=== PATIENT | male | born 1945 | race Caucasian/White ===

== ENCOUNTER 2017-05-05 07:23 | Outpatient (RCR) | payer MEDICARE, OTHER, SELFPAY ==
[2017-05-05 09:46] LABS: AST(SGOT) 26 U/L (15-37); Alanine Aminotransfer ALT/SGPT 35 U/L (16-61); Albumin, Serum 3.7 g/dL (3.2-5.0); Alkaline Phosphatase 78 U/L (45-117); Bilirubin, Direct 0.26 mg/dL (0.00-0.30); Cholesterol 125 mg/dL (200); High Density Lipoprotein 56 mg/dL; Protein, Total 6.7 g/dL (6.4-8.2); Triglycerides 49 mg/dL; Very Low Density Lipoprotein 10 mg/dL (5-40)
== END 2017-05-05 08:00 | disposition home or self-care (01) ==
LOC: LAB 07:23
PROVIDERS: Family Provider Internal Medicine; PCP Internal Medicine; Visit Provider Internal Medicine Cardiovascular Disease
DX: E78.5 Hyperlipidemia, unspecified (principal); Z79.899 Other long term (current) drug therapy
CPT/HCPCS: 36415; 80061; 80076

== ENCOUNTER → 2018-05-08 09:18 | Outpatient (CLI) | payer MEDICARE, OTHER, SELFPAY ==
[2017-05-06 10:02] VITALS: BMI 25.2
[2018-05-08 10:47] LABS: AST(SGOT) 18 U/L (15-37); Alanine Aminotransfer ALT/SGPT 29 U/L (16-61); Alkaline Phosphatase 67 U/L (45-117); Bilirubin, Direct 0.28 mg/dL (0.00-0.30); Cholesterol 137 mg/dL (200); Globulin 2.6 g/dL (2.2-4.2); High Density Lipoprotein 58 mg/dL; Protein, Total 6.6 g/dL (6.4-8.2); Triglycerides 80 mg/dL; Very Low Density Lipoprotein 16 mg/dL (5-40)
== END ==
PROVIDERS: Physician Assistant Medical; Family Provider Internal Medicine; PCP Internal Medicine; Referring Provider Internal Medicine Cardiovascular Disease; Visit Provider Internal Medicine Cardiovascular Disease
DX: E78.5 Hyperlipidemia, unspecified (principal)
CPT/HCPCS: 36415; 80061; 80076

== ENCOUNTER → 2019-07-29 08:48 | Outpatient (CLI) | payer MEDICARE, OTHER, SELFPAY ==
[2018-05-12 08:59] VITALS: BMI 26.2
[2019-07-29 09:31] LABS: AST(SGOT) 16 U/L (15-37); Alanine Aminotransfer ALT/SGPT 24 U/L (16-61); Alkaline Phosphatase 70 U/L (45-117); Bilirubin, Direct 0.34 mg/dL (0.00-0.30); Cholesterol 133 mg/dL (200); High Density Lipoprotein 54 mg/dL; Triglycerides 72 mg/dL; Very Low Density Lipoprotein 14 mg/dL (5-40)
== END ==
PROVIDERS: Physician Assistant Medical; PCP Internal Medicine; Referring Provider Internal Medicine Cardiovascular Disease; Visit Provider Internal Medicine Cardiovascular Disease
DX: E78.5 Hyperlipidemia, unspecified (principal)
CPT/HCPCS: 36415; 80061; 80076

== ENCOUNTER → 2019-10-14 10:10 | Outpatient (CLI) | payer MEDICARE, OTHER, SELFPAY ==
[2019-07-30 09:22] VITALS: BMI 24.1
--- NOTE | 2019-10-14 10:20 | RAD_ITS ---
STUDY: X-RAY - RIGHT KNEE REASON FOR EXAM: Male, 74 years old. PAIN MEDIALLY WHILE WALKING X3 WEEKS, NKI TECHNIQUE: 4 view(s) of the knee. COMPARISON: None. FINDINGS: Normal visualized distal femur. Normal visualized proximal tibia and fibula. Normal proximal tibiofibular articulation. Normal medial femorotibial compartment. Normal lateral femorotibial compartment. Normal patellofemoral articulation. The soft tissue structures are unremarkable. RAD/Knee 4 or More Views IMPRESSION: Normal x-ray examination of the knee. Electronically Signed: Sandor Parada MD at 22:46 EDT , Service support ,
== END ==
PROVIDERS: PCP Family Medicine; Referring Provider Family Medicine; Visit Provider Family Medicine
DX: M25.561 Pain in right knee (principal)
CPT/HCPCS: 73564

== ENCOUNTER → 2020-01-18 09:14 | Outpatient (CLI) | payer MEDICARE, OTHER, SELFPAY ==
[2019-07-30 09:22] VITALS: BMI 24.1
[2020-01-18 12:33] LABS: Absolute Lymphocyte Count 1.66 X10^3/uL (0.83-4.51); Absolute Neutrophil Count 2.9 X10^3/uL (2.0-7.7); Basophil# 0.02 X10^3/uL; Basophil% 0.4 % (0-1); Eosinophil# 0.16 X10^3/uL; Hematocrit 45.5 % (40-54); Hemoglobin 14.6 g/dL (13.0-16.5); Lymphocyte # 1.66 X10^3/ul (4.0); Lymphocyte % 31.1 % (19-41); Mean Corp Hgb Conc 32.1 g/dL (32-36); Mean Corpuscular Hgb 32.5 pg (27.0-32.0); Mean Corpuscular Volume 101.3 fL (80-94); Mean Platelet Vol. 9.5 fl (6.2-12.0); Monocyte% 11.2 % (0-10); NRBC Flagged by Analyzer 0 % (0-5); Neutrophil # 2.86 X10^3/uL (2.7-7.7); Neutrophil % 53.6 % (47-70); Platelet Count 176 K/mm3 (150-450); RBC Distribution Width CV 12.1 % (11.6-14.6); RBC Distribution Width SD 45.2 fl (35.1-43.9); Red Blood Count 4.49 M/mm3 (4.6-6.2); White Blood Count 5.3 K/mm3 (4.4-11.0)
[2020-01-18 12:47] LABS: AST(SGOT) 14 U/L (15-37); Alanine Aminotransfer ALT/SGPT 23 U/L (16-61); Albumin, Serum 3.9 g/dL (3.2-5.0); Alkaline Phosphatase 75 U/L (45-117); Bilirubin, Direct 0.25 mg/dL (0.00-0.30); Cholesterol 136 mg/dL (200); High Density Lipoprotein 57 mg/dL; Protein, Total 6.9 g/dL (6.4-8.2); Triglycerides 66 mg/dL; Very Low Density Lipoprotein 13 mg/dL (5-40)
== END ==
PROVIDERS: PCP Family Medicine; Referring Provider Dermatology; Visit Provider Dermatology
DX: E78.5 Hyperlipidemia, unspecified (principal); I25.10 Atherosclerotic heart disease of native coronary artery without angina pectoris; Z79.899 Other long term (current) drug therapy
CPT/HCPCS: 36415; 80061; 80076; 85025

== ENCOUNTER 2020-04-24 11:53 | Emergency (ER) | payer MEDICARE, OTHER, SELFPAY ==
[2019-07-30 09:22] VITALS: BMI 24.1
[2020-04-24 11:54] VITALS: BP 122/68; PULSE 65; RESP 16; TEMP 36.8; O2SAT 98; BMI 25.1
--- NOTE | 2020-04-24 12:03 | CT_ITS ---
STUDY: CT ABDOMEN AND PELVIS WITHOUT CONTRAST REASON FOR EXAM: Male, 74 years old. Kidney Stone RADIATION DOSAGE (If Supplied By Facility): CTDIvol = ( 9.06 ) mGy, DLP = ( 509.47 ) mGycm TECHNIQUE: Transaxial images were obtained from the dome of the diaphragm to the symphysis pubis without oral contrast, and without intravenous contrast. Sagittal and coronal images were reconstructed. Individualized dose optimization techniques were used for this CT. COMPARISON: None. FINDINGS: The visualized lung bases are unremarkable. The visualized portions of the heart are within normal limits. Normal liver. Normal gallbladder and extrahepatic biliary system. Normal spleen. Normal pancreas. Normal bilateral adrenal glands. Multiple bilateral kidney stones the largest measures 5 mm. There is moderate left hydronephrosis and hydroureter due to 5 mm stone in the distal left ureter at the UVJ. Multiple moderately enlarged retroperitoneal and mesenteric lymph nodes nodes are noted. The largest lymph node measures approximately 1.7 cm in diameter is in the left upper quadrant may represent a neoplastic process such as lymphoma. Normal visualized stomach. Normal small intestine. There are multiple colonic diverticula consistent with diverticulosis. There are surgical clips in the region of the appendix consistent with a prior appendectomy. There is diffuse atherosclerotic calcification of the abdominal aorta, without a demonstrated aneurysm. Normal inferior vena cava. Normal urinary bladder. There is a right-sided inguinal hernia containing adipose tissue. Normal osseous structures. CT/Abdomen/Pelvis without Cont IMPRESSION: Multiple bilateral kidney stones the largest measures 5 mm. There is moderate left hydronephrosis and hydroureter due to 5 mm stone in the distal left ureter at the UVJ. Multiple moderately enlarged retroperitoneal and mesenteric lymph nodes nodes are noted. The largest lymph node measures approximately 1.7 cm in diameter is in the left upper quadrant may represent a neoplastic process such as lymphoma. Electronically Signed: Eusebia Carvajal MD at 12:53 EST Tel , Service support ,
--- NOTE | 2020-04-24 12:04 | ED.DCSUM_ITS ---
History of Present Illness Chief Complaint: Flank Pain Informant: Patient Onset: Today Context: Sudden Onset Timing: Intermittent Current Severity: Mild Maximum Severity: Moderate Narrative: The patient is a 74-year-old male with medical history significant for kidney stone who presents to the emergency department for left-sided flank pain. The patient states he was in his normal state of health. He states he was up this morning. He states he suddenly had pain in his left flank down into his left lower quadrant. He was very nauseated. He states he took 2 Tylenol. The pain then went away after 30 minutes. It has not returned. He denies any fevers or chills. He does have history of prior CABG and is on aspirin, but no other anticoagulants. He denies hematuria or dysuria. He is never required lithotripsy or stenting. Prior similar symptoms: Yes Recent Illness/Hospitalization: No Past Medical History - Allergies and Home Meds Allergies/Adverse Reactions: Allergies No Known Allergies Allergy (Verified 04/24/20 11:53) Primary Care Physician: Gina Smith MD [Primary Care Provider] - Prior records reviewed: Yes Past Medical History: - - Hypertension Surgical History: coronary bypass surgery Smoking Status: Never smoker Review of Systems General: Denies: Chills, Fever, Sweats Eyes: Denies: Visual changes - bilaterally, Diplopia ENT: Denies: Rhinorrhea, Sore throat Cardiovascular: Denies: Chest pain, Palpitations Respiratory: Denies: Dyspnea, Cough, Dyspnea on exertion Gastrointestinal: Denies: Abdominal pain, Nausea, Vomiting, Diarrhea, Melena, Hematochezia Genitourinary: Denies: Dysuria, Hematuria, Frequency Musculoskeletal: Reports: Back pain. Denies: Extremity Pain Skin: Denies: Rash, Wounds Neurological: Denies: Headache, Weakness, Numbness Physical Exam Vital Signs/Narrative: Vital Signs Temp Pulse Resp BP Pulse Ox 04/24/20 11:54 98.2 F 65 16 122/68 H 98 Inital Vital Signs reviewed: Yes General: Well nourished, Well developed, No Acute Distress Head: Normocephalic, Atraumatic Eyes: Perrl, EOMI ENT: Moist mucous membranes, No rhinorrhea Neck: Supple, Nontender Cardiovascular: Regular rate, Regular rhythm, No murmurs Respiratory: No distress, CTA bilaterally, Chest nontender Abdomen: Soft, Nontender, Nondistended, Normal bowel sounds Back: Nontender, Normal Inspection Extremities: Nontender, No edema Skin: Normal color, No rash Neurological: Alert, Oriented x3, Cranial nerves II-XII grossly intact, Normal S trength, Normal Sensation Psychological: Normal affect, Normal Mood Diagnostic/Tx/Re-eval Clinical Impression(s) from Imaging Studies Abdomen/Pelvis CT 04/24/20 12:03 IMPRESSION: Multiple bilateral kidney stones the largest measures 5 mm. There is moderate left hydronephrosis and hydroureter due to 5 mm stone in the distal left ureter at the UVJ. Multiple moderately enlarged retroperitoneal and mesenteric lymph nodes nodes are noted. The largest lymph node measures approximately 1.7 cm in diameter is in the left upper quadrant may represent a neoplastic process such as lymphoma. Electronically Signed: Eusebia Carvajal MD at 12:53 EST Tel , Service support , Abnormal Lab Results 04/24/20 04/24/20 12:10 12:10 WBC 11.4 H RBC 4.59 L Hgb 14.8 Hct 45.2 MCV 98.5 H MCH 32.2 H MCHC 32.7 RDW Std Deviation 43.1 RDW Coeff of Jorge L 11.9 Plt Count 177 MPV 8.9 Immature Gran % (Auto) 0.600 Neut % (Auto) 84.5 H Lymph % (Auto) 7.5 L Crook % (Auto) 6.0 Eos % (Auto) 1.0 Baso % (Auto) 0.4 Absolute Neuts (auto) 9.6 H Absolute Lymphs (auto) 0.85 Nucleated RBC % 0 Sodium 138 Potassium 4.4 Chloride 106 Carbon Dioxide 27.0 Anion Gap 5 BUN 17 Creatinine 1.10 Estim Creat Clear Calc 59.91 Est GFR (MDRD) Af Amer 84 Est GFR (MDRD) Non-Af 69 BUN/Creatinine Ratio 15.5 Glucose 123 H Calcium 9.3 - Medical Decision Making Patient is a history of kidney stone. He presents with flank pain that is since resolved. His abdomen is soft and nontender. Metabolic work-up was pursued. Labs are relatively unremarkable. Patient underwent CT imaging. He does have a 5 mm stone at the edge of the UVJ or in the bladder. He has maintained pain- free. His CT also showed some enlarged lymph nodes which were concerning. I did review this with the patient and the importance of following up with his primary care. He has had no fever, weight loss, night sweats, or other symptoms. He and his are comfortable with this plan. He'll be discharged home. Impression 1. Kidney stone ED Disposition - Plan for ED Patient: Instructions: ED Kidney Stone w/ Colic Prescriptions: Tamsulosin HCl [Flomax] 0.4 mg PO DAILY #7 cap Prescription Printed Hydrocodone Bitart/Apap 5-325 [[place] 5MG-325MG] 1 tab PO Q6H PRN PRN 3 Days #10 tab PRN Reason: Pain Prescription Printed Ondansetron [Zofran Odt] 4 mg PO Q8H PRN PRN #10 tab PRN Reason: Nausea Prescription Printed Referrals: Gina Smith MD [Primary Care Provider] -
[2020-04-24] MEDS: 0.9% Normal Saline 1,000 ML 250 ML IV (12:12)
[2020-04-24 12:20] LABS: Absolute Lymphocyte Count 0.85 X10^3/uL (0.83-4.51); Absolute Neutrophil Count 9.6 X10^3/uL (2.0-7.7); Basophil# 0.04 X10^3/uL; Basophil% 0.4 % (0-1); Eosinophil# 0.11 X10^3/uL; Hematocrit 45.2 % (40-54); Hemoglobin 14.8 g/dL (13.0-16.5); Lymphocyte # 0.85 X10^3/ul (4.0); Lymphocyte % 7.5 % (19-41); Mean Corp Hgb Conc 32.7 g/dL (32-36); Mean Corpuscular Hgb 32.2 pg (27.0-32.0); Mean Corpuscular Volume 98.5 fL (80-94); Mean Platelet Vol. 8.9 fl (6.2-12.0); Monocyte# 0.68 X10^3/uL; NRBC Flagged by Analyzer 0 % (0-5); Neutrophil % 84.5 % (47-70); Platelet Count 177 K/mm3 (150-450); RBC Distribution Width CV 11.9 % (11.6-14.6); RBC Distribution Width SD 43.1 fl (35.1-43.9); Red Blood Count 4.59 M/mm3 (4.6-6.2); White Blood Count 11.4 K/mm3 (4.4-11.0)
[2020-04-24 12:33] LABS: Anion Gap 5 (5-15); BUN 17 mg/dL (7-18); BUN/Creat Ratio 15.5 RATIO (10-20); Calcium,Total 9.3 mg/dL (8.5-10.1); Chloride 106 mmol/L (98-107); EST Glomerular Filtration Rate 69 mL/min (>60); Est Glom Filt Rate - Afr Amer 84 mL/min (>60); Estimated Creatinine Clearance 59.91 ml/min; Glucose 123 mg/dL (74-106); Potassium 4.4 mmol/L (3.5-5.1); Sodium Level 138 mmol/L (136-145)
== END 2020-04-24 13:06 | disposition home or self-care (01) ==
LOC: ED 12:48
PROVIDERS: Emergency Provider Emergency Medicine; PCP Family Medicine
DX: N13.2 Hydronephrosis with renal and ureteral calculous obstruction (principal); I10 Essential (primary) hypertension; Z87.442 Personal history of urinary calculi; Z95.1 Presence of aortocoronary bypass graft; Z79.899 Other long term (current) drug therapy; Z79.82 Long term (current) use of aspirin
CPT/HCPCS: 74176; 80048; 85025; 96360; 99283; J7030; A4216

== ENCOUNTER → 2020-07-24 14:55 | Outpatient (CLI) | payer MEDICARE, OTHER, SELFPAY ==
--- NOTE | 2020-07-24 14:57 | CT_ITS ---
STUDY: CT ABDOMEN AND PELVIS WITH CONTRAST REASON FOR EXAM: Male, 75 years old. F/U ABN CT SCAN,LYMPHADENOPATHY RADIATION DOSAGE (If Supplied By Facility): CTDIvol = ( 10.92 ) mGy, DLP = ( 513.21 ) mGycm TECHNIQUE: Transaxial images were obtained from the dome of the diaphragm to the symphysis pubis with oral contrast. Oral and amp;amp; IV REDICAT and amp;amp; 100ML ISOVUE 300 was administered. Sagittal and coronal images were reconstructed. Individualized dose optimization techniques were used for this CT. COMPARISON: Comparison is made with prior study dated 04/24/2020. FINDINGS: Stable mild increased markings at the lung bases suggestive of scarring. Coronary artery calcification. Normal liver. Normal gallbladder and extrahepatic biliary system. Normal spleen. Normal pancreas. Normal bilateral adrenal glands. Normal right kidney. Normal left kidney. Normal visualized stomach. Normal small intestine. Normal colon. The appendix is visualized and appears normal. There is diffuse atherosclerotic calcification of the abdominal aorta, without a demonstrated aneurysm. Normal inferior vena cava. There is retroperitoneal lymphadenopathy with enlarged nodes greater than 10-15mm in the short axis. This is unchanged. Normal urinary bladder. Heterogeneous enlargement of the prostate with indentation of the bladder base. The prostate measures 4.9 cm x 6.6 cm. This causes indentation at the bladder base. There is a right-sided inguinal hernia containing adipose tissue. There are diffuse degenerative changes of the visualized lumbar spine. CT/Abdomen/Pelvis WITH Contrast IMPRESSION: Stable retroperitoneal lymphadenopathy and enlargement of the prostate. No ureteral obstruction is seen at this time. Electronically Signed: Christian Ohara MD at 15:49 EDT , Service support ,
[2020-07-24 15:11] LABS: CREATININE FINGERSTICK 1.2 mg/dL (0.70-1.30)
== END ==
PROVIDERS: PCP Family Medicine; Referring Provider Family Medicine; Visit Provider Family Medicine
DX: R59.1 Generalized enlarged lymph nodes (principal)
CPT/HCPCS: 74177; Q9967

== ENCOUNTER → 2020-08-01 06:37 | Outpatient (CLI) | payer MEDICARE, OTHER, SELFPAY ==
[2020-08-01 07:36] LABS: AST(SGOT) 15 U/L (15-37); Alanine Aminotransfer ALT/SGPT 25 U/L (16-61); Albumin, Serum 3.9 g/dL (3.2-5.0); Alkaline Phosphatase 77 U/L (45-117); Bilirubin, Direct 0.26 mg/dL (0.00-0.30); Cholesterol 135 mg/dL (200); Globulin 2.9 g/dL (2.2-4.2); High Density Lipoprotein 60 mg/dL; Protein, Total 6.8 g/dL (6.4-8.2); Triglycerides 62 mg/dL; Very Low Density Lipoprotein 12 mg/dL (5-40)
[2020-08-01 17:04] LABS: Absolute Lymphocyte Count 1.67 X10^3/uL (0.83-4.51); Absolute Neutrophil Count 3.7 X10^3/uL (2.0-7.7); Basophil# 0.03 X10^3/uL; Basophil% 0.5 % (0-1); Eosinophil# 0.17 X10^3/uL; Eosinophils% 2.7 % (0-5); Hematocrit 44.4 % (40-54); Hemoglobin 14.5 g/dL (13.0-16.5); Lymphocyte # 1.67 X10^3/ul (0.83-4.51); Lymphocyte % 26.5 % (19-41); Mean Corp Hgb Conc 32.7 g/dL (32-36); Mean Corpuscular Hgb 32.2 pg (27.0-32.0); Mean Corpuscular Volume 98.4 fL (80-94); Mean Platelet Vol. 9.3 fl (6.2-12.0); Monocyte# 0.76 X10^3/uL; NRBC Flagged by Analyzer 0 % (0-5); Neutrophil # 3.66 X10^3/uL (2.7-7.7); Platelet Count 189 K/mm3 (150-450); RBC Distribution Width CV 11.9 % (11.6-14.6); RBC Distribution Width SD 42.9 fl (35.1-43.9); Red Blood Count 4.51 M/mm3 (4.6-6.2); White Blood Count 6.3 K/mm3 (4.4-11.0)
[2020-08-01 17:31] LABS: Anion Gap 6 (5-15); BUN 21 mg/dL (7-18); BUN/Creat Ratio 19.4 RATIO (10-20); Calcium,Total 9.5 mg/dL (8.5-10.1); Chloride 104 mmol/L (98-107); Creatinine, Serum 1.08 mg/dL (0.70-1.30); EST Glomerular Filtration Rate 71 mL/min (>60); Est Glom Filt Rate - Afr Amer 86 mL/min (>60); Glucose 85 mg/dL (74-106); PSA,Total- Diagnostic 4.36 ng/mL (0.0-4.0); Potassium 4.3 mmol/L (3.5-5.1); Sodium Level 139 mmol/L (136-145)
== END ==
PROVIDERS: PCP Family Medicine; Referring Provider Internal Medicine Cardiovascular Disease; Visit Provider Internal Medicine Cardiovascular Disease
DX: N40.0 Benign prostatic hyperplasia without lower urinary tract symptoms (principal); Z95.1 Presence of aortocoronary bypass graft; I25.10 Atherosclerotic heart disease of native coronary artery without angina pectoris; E78.5 Hyperlipidemia, unspecified
CPT/HCPCS: 36415; 80048; 80061; 80076; 84153; 85025

== ENCOUNTER → 2020-08-17 | Outpatient (CLI) | payer MEDICARE, OTHER, SELFPAY ==
[2020-08-01 12:50] VITALS: BMI 25.8
[2020-08-17 10:59] LABS: Bacteria 0 SEEN /hpf (None Seen); Mucous, Urine 0 SEEN /hpf (<or=2+); Red Blood Cells-Urine 0 SEEN /hpf (0-5); Squamous Epithelial Cells - UA 0 SEEN /hpf (0-5); White Blood Cells 0 SEEN /hpf (0-5)
[2020-08-17 11:17] LABS: Color, Urine Yellow (Yellow); Glucose, Dipstick Normal (Normal); Ketone-Dipstick Negative (Negative); Leukocyte Esterase-Dipstick Negative /ul (Negative); Nitrite-Dipstick Negative (Negative); Occult Blood-Urine 10 /ul (Negative); Protein-Dipstick Negative (Negative); Specific Gravity, Urine 1.015 (1.002-1.030); Urine Bilirubin Dipstick Negative (Negative); Urine Clarity Clear (Clear); Urine Urobilinogen Normal (Normal)
== END | disposition home or self-care (01) ==
LOC: LABSPEC 10:47
PROVIDERS: PCP Family Medicine; Visit Provider Nurse Practitioner Adult Health
DX: R31.9 Hematuria, unspecified (principal)
CPT/HCPCS: 81001

== ENCOUNTER → 2020-10-03 | Outpatient (CLI) | payer MEDICARE, OTHER, SELFPAY ==
[2020-08-01 12:50] VITALS: BMI 25.8
--- NOTE | 2020-10-03 08:00 | PROSBIL_PTH ---
PATIENT: BERNARDO VERDUGO LOC: [facility] U#:[id number] AGE/SX: 75/M ROOM: RE10/03/[address]: Dr. Addison Ragsdale MD : 1945 BED: DIS: 10/03/2020 SPEC #: [id number] RECD: 10/03/20 15:45 STATUS: JAHAIRA REEduard #: [id number] CAMMIE: 10/03/20 08:[address]: Addison Ragsdale DEPT: SURGICAL PATHOLOGY RECD BY: Ning Borges ENTERED: 10/04/20 08:46 SP TYPE: PROST BX RICHY DR: Dr. Gina Smith MD Tissues: A - PROSTATE RIGHT B - PROSTATE RIGHT C - PROSTATE RIGHT D - PROSTATE LEFT E - PROSTATE LEFT F - PROSTATE LEFT Procedures: PROSTATE BX HEADER OPERATION: Prostate biopsy PRE-OP DIAGNOSIS: R97.20 TISSUE SUBMITTED: A - Right apex, B - Right mid, C - Right base, D - Left apex, E - Left mid, F - Left base MICROSCOPIC DIAGNOSIS A. Right prostate, apex, core biopsy: Prostatic tissue, negative for malignancy. B. Right prostate, mid, core biopsy: Prostatic tissue, negative for malignancy. Focal mild chronic inflammation. C. Right prostate, base, core biopsy: Prostatic tissue, negative for malignancy. Focal mild chronic inflammation. D. Left prostate, apex, core biopsy: Prostatic tissue, negative for malignancy. E. Left prostate, mid, core biopsy: Prostatic tissue, negative for malignancy. F. Left prostate, base, core biopsy: Prostatic tissue, negative for malignancy. SJ:vince 10/05/2020 MICROSCOPIC DESCRIPTION Slides are reviewed. GROSS DESCRIPTION A - Received is one container designated prostate, right apex. The specimen consists of one elongated fragment of light pablo-white soft tissue measuring 1 cm in length and 0.1 cm in diameter. The specimen is totally submitted in one cassette. B - Received is one container designated prostate, right mid. The specimen consists of one elongated fragment of light pablo-white soft tissue measuring 0.9 cm in length and 0.1 cm in diameter. The specimen is totally submitted in one cassette. C - Received is one container designated prostate, right base. The specimen consists of one elongated fragment of light pablo-white soft tissue measuring 1.5 cm in length and 0.1 cm in diameter. The specimen is totally submitted in one cassette. D - Received is one container designated prostate, left apex. The specimen consists of one elongated fragment of light pablo-white soft tissue measuring 1 cm in length and 0.1 cm in diameter. The specimen is totally submitted in one cassette. E - Received is one container designated prostate, left mid. The specimen consists of one elongated fragments of light pablo-white soft tissue measuring 1 cm in length and 0.1 cm in diameter. The specimen is totally submitted in one cassette. F - Received is one container designated prostate, left base. The specimen consists of one elongated fragment of light pablo-white soft tissue measuring 1.1 cm in length and 0.1 cm in diameter. The specimen is totally submitted in one cassette. / SJ:rg 10/04/20 TC:3 CPT: G0146
== END | disposition home or self-care (01) ==
PROVIDERS: PCP Family Medicine; Referring Provider Urology; Visit Provider Urology
DX: R97.20 Elevated prostate specific antigen [PSA] (principal)
CPT/HCPCS: 88305; G0416

== ENCOUNTER 2021-04-16 09:29 | Outpatient (CLI) | payer MEDICARE, OTHER, SELFPAY ==
[2021-04-16 10:45] LABS: AST(SGOT) 15 U/L (15-37); Alanine Aminotransfer ALT/SGPT 29 U/L (16-61); Alkaline Phosphatase 77 U/L (45-117); Bilirubin, Direct 0.31 mg/dL (0.00-0.30); Cholesterol 127 mg/dL (200); Globulin 2.8 g/dL (2.2-4.2); High Density Lipoprotein 61 mg/dL; PSA,Total- Diagnostic 4.71 ng/mL (0.0-4.0); Protein, Total 6.8 g/dL (6.4-8.2); Triglycerides 69 mg/dL; Very Low Density Lipoprotein 14 mg/dL (5-40)
== END 2021-04-16 23:59 | disposition home or self-care (01) ==
LOC: LAB 09:31
PROVIDERS: PCP Family Medicine; Referring Provider Internal Medicine Cardiovascular Disease; Visit Provider Internal Medicine Cardiovascular Disease
DX: R97.20 Elevated prostate specific antigen [PSA] (principal); E78.00 Pure hypercholesterolemia, unspecified
CPT/HCPCS: 36415; 80061; 80076; 84153

== ENCOUNTER 2021-05-21 06:47 | Outpatient (CLI) | payer MEDICARE, OTHER, SELFPAY ==
--- NOTE | 2021-05-21 06:50 | ECHOD_ITS ---
Reason For Study: s/p CABG Procedure This was a 2D Doppler, Color Flow transthoracic echocardiogram. Bubble study performed. Exam performed in department. Left Ventricle Normal LV size. Left ventricular systolic function is normal. The estimated ejection fraction is 60 %. Stage 1 diastolic dysfunction. No regional wall motion abnormalities noted. Right Ventricle Normal RV size. Normal systolic function. Atria Normal left atrium. Normal right atrium. Bubble contrast study negative for right to left interatrial shunt. Mitral Valve Normal mitral valve. Mild (1+) eccentric mitral valve insufficiency. Tricuspid Valve Normal tricuspid valve. Mild tricuspid valve insufficiency. Pulmonary artery systolic pressure is 24 mmHg. Aortic Valve Normal aortic valve. Trisinus/trileaflet aortic valve. Pulmonic Valve Normal pulmonic valve. Great Vessels Normal aortic root. The pulmonary artery is normal size. Inferior vena cava collapse with respiration. Pericardium/Pleural No pericardial effusion. Medication 22 gauge I.V. with prn adaptor inserted into left arm. Performed a rapid injection of agitated mix of 9 cc saline and 1cc air to assess for atrial septal defect. MMode/2D Measurements & Calculations LVIDd: 4.0 cm IVSd: 1.3 cm Ao root diam: 3.3 cm LVIDs: 2.6 cm LVPWd: 1.1 cm LA dimension: 3.6 cm RVDd: 3.5 cm FS: 35.5 % LAV(MOD-bp): 52.1 ml LA A4 area: 19.9 cm2 RA A4 area: 17.6 cm2 LAV(MOD-bp) Indexed: 26.5 ml/m2 LAV(MOD-sp2): 44.1 ml LAV(MOD-sp4): 53.7 ml Time Measurements MV dec time: 0.15 sec Doppler Measurements & Calculations MV E max pio: 34.8 cm/sec Lat Peak E' Pio: 7.5 cm/sec Med Peak E' Pio: 5.7 cm/sec MV A max pio: 53.1 cm/sec E/E' lat: 4.6 E/E' med: 6.1 MV E/A: 0.65 MV V2 max: 59.5 cm/sec MV P1/2t max pio: 36.9 cm/sec Ao V2 max: 78.0 cm/sec MV max P.4 mmHg MV P1/2t: 71.2 msec Ao max P.4 mmHg MV V2 mean: 29.1 cm/sec MV dec slope: 151.7 cm/sec2 MV mean P.41 mmHg MV V2 VTI: 12.6 cm MVA(P1/2t): 3.1 cm2 LV V1 max: 71.2 cm/sec PA V2 max: 117.5 cm/sec TR max pio: 225.9 cm/sec LV V1 max P.0 mmHg TR max P.4 mmHg ECHO/Echo Complete Interpretation Summary Normal LV size. Left ventricular systolic function is normal. The estimated ejection fraction is 60 %. Stage 1 diastolic dysfunction. Bubble contrast study negative for right to left interatrial shunt. Mild (1+) eccentric mitral valve insufficiency. Pulmonary artery systolic pressure is 24 mmHg. Ordering Physician: Fco Durand Referring Physician: Gina Smith Performed By: Luis Tam, FUENTES
--- NOTE | 2021-05-21 16:54 | STRESSREP ---
Stress Test Report Exercise myocardial perfusion stress test. 75-year-old man with a history of coronary artery disease status post coronary bypass surgery. Stress protocol: Resting EKG demonstrates normal sinus rhythm with a rate of 62 bpm normal intervals are noted resting blood pressure is 112/78 mmHg. The patient exercised according to regular Lucas protocol for a total duration of 10 minutes and 15 seconds completing 1 minute and 15 seconds into stage IV of the Lucas protocol. The maximum heart rate attained was 166 bpm which was 115% of max impact at heart rate the maximum workload was 13.4 metabolic equivalents. At rest there were no ST or T wave changes noted to suggest ischemia and at peak exercise upsloping ST changes were noted with did not meet the criteria for ischemia. The test was terminated due to leg fatigue. No clinical angina was noted. The peak blood pressure was 184/74 mmHg. Myocardial perfusion protocol. 11.9 mCi of technetium 99m sestamibi was injected at rest. Patient exercised according to regular Lucas protocol for total duration of 10 minutes and 15 seconds and at peak exercise 34.0 mCi of technetium 99m sestamibi was injected stress images were obtained stress and rest images were reconstructed and compared in the short axis vertical long and horizontal long axis. Gated images were also obtained to Perfusion SPECT analysis: Review of the stress images demonstrate normal uptake of tracer noted in all areas of the myocardium. The resting images did not demonstrate any significant abnormalities as well. No previous infarct is noted. Gated SPECT analysis: The gated ejection fraction is 65%. Conclusion: Normal exercise myocardial perfusion stress test at a high workload. No clinical angina noted. Excellent functional capacity.
== END 2021-05-21 23:59 | disposition home or self-care (01) ==
LOC: CVS 06:49
PROVIDERS: PCP Family Medicine; Referring Provider Internal Medicine Cardiovascular Disease; Visit Provider Internal Medicine Cardiovascular Disease
DX: I25.10 Atherosclerotic heart disease of native coronary artery without angina pectoris (principal); Z95.1 Presence of aortocoronary bypass graft
CPT/HCPCS: 78452; 93017; 93306; A9500; A4216

== ENCOUNTER → 2021-07-24 | Outpatient (CLI) | payer MEDICARE, OTHER, SELFPAY ==
--- NOTE | 2021-07-24 07:57 | CT_ITS ---
STUDY: CT ABDOMEN AND PELVIS WITH CONTRAST REASON FOR EXAM: Male, 76 years old. F/U ABNORMAL CT SCAN. History of lymphadenopathy. RADIATION DOSAGE (If Supplied By Facility): CTDIvol = ( 18.24 ) mGy, DLP = ( 869.16 ) mGycm TECHNIQUE: Transaxial images were obtained from the dome of the diaphragm to the symphysis pubis with oral contrast. Oral and amp; IV Readi-CAT and amp; 100mL Isovue-370 was administered. Sagittal and coronal images were reconstructed. Individualized dose optimization techniques were used for this CT. COMPARISON: Comparison is made with prior study dated 07/24/2020. FINDINGS: The visualized lung bases are unremarkable. Coronary artery calcification. Normal liver. Normal gallbladder and extrahepatic biliary system. Normal spleen. Normal pancreas. Normal bilateral adrenal glands. Stable small cyst in the lower pole of the right kidney. Nonobstructive calculus in the lower pole calyx of the right kidney. 1.3 cm cyst in the upper pole of the left kidney. Normal visualized stomach. Normal small intestine. Normal colon. The patient is status post appendectomy. There is diffuse atherosclerotic calcification of the abdominal aorta, without a demonstrated aneurysm. Normal inferior vena cava. There is retroperitoneal lymphadenopathy with enlarged nodes greater than 10-15mm in the short axis. Stable examination. Diffuse irregular bladder wall thickening. Prostatic enlargement with indentation at the bladder base. The prostate measures 4.2 cm x 5.6 cm. This has a heterogeneous appearance. Prostatic calcification. There is a right-sided inguinal hernia containing adipose tissue. There are mild degenerative changes of the visualized lumbar spine. CT/Abdomen/Pelvis WITH Contrast IMPRESSION: Stable examination. Heterogeneous enlargement of the prostate with indentation at the bladder base. Persistent diffuse bladder wall thickening. Electronically Signed: Christian Ohara MD at 10:49 EDT ,
[2021-07-24 08:21] LABS: CREATININE FINGERSTICK < 0.9 mg/dL (0.70-1.30); EGFR FINGERSTICK > 60.0000 mL/min (>60)
== END | disposition home or self-care (01) ==
LOC: CT 07:55
PROVIDERS: PCP Family Medicine; Visit Provider Family Medicine
DX: R59.1 Generalized enlarged lymph nodes (principal)
CPT/HCPCS: 74177; Q9967

== ENCOUNTER 2021-10-06 23:56 | Emergency (ER) | payer MEDICARE, OTHER, SELFPAY ==
[2021-10-06 23:58] VITALS: BP 144/82; PULSE 66; RESP 17; TEMP 36.8; O2SAT 99; BMI 24.3
--- NOTE | 2021-10-07 00:41 | CT_ITS ---
STUDY: CT BRAIN WITHOUT CONTRAST REASON FOR EXAM: Male, 76 years old. trauma RADIATION DOSAGE (If Supplied By Facility): CTDIvol = ( 44.99 ) mGy, DLP = ( 796.11 ) mGycm TECHNIQUE: Transaxial CT imaging of the brain was performed without administration of intravenous contrast material. Individualized dose optimization techniques were used for this CT. COMPARISON: No relevant priors. FINDINGS: Normal soft tissue structures. Normal calvarium. There is mild cerebral atrophy with widening of the extra-axial spaces and ventricular dilatation. There are areas of decreased attenuation within the white matter tracts of the supratentorial brain, consistent with mild microvascular disease changes. Normal basal ganglia and thalami. Normal brainstem. Normal cerebellum. There is no intracranial hemorrhage. There are no findings of an acute ischemic infarction. Normal visualized paranasal sinuses. CT/Brain/Head without Contrast IMPRESSION: Chronic changes as described. No acute intracranial hemorrhage or space-occupying lesion. Electronically Signed: Vandana Colin MD at 1:35 EDT ,
--- NOTE | 2021-10-07 01:44 | EDS_ITS ---
HPI HPI - Fall History of Present Illness Chief Complaint: Fall Informant: patient and spouse/S.O. Occured/Mechanism Occurred: Today Mechanism/Context: Yes same level fall Narrative: see below Usually ambulates: Without assistance Pain/Injury Pain Location: head and face Quality of Pain: Aching and - (sore) Current Severity: Mild Maximum Severity: Moderate Worsened by: palpation Relieved by: ice / cold compress Associated Symptoms Associated Symptoms: Negative for Parasthesias, Weakness, Loss of function, Inability to ambulate, Loss of consciousness or Amnesia Narrative Narrative: Patient was on ceramic tile floor at home, lifting out a heavy drawer full of pots and pans, he slipped as he was pulling it out he went down to his buttocks, when he went to stand up, he slipped again on the tile, falling forward and hitting his left face/forehead on the hard tile floor, and falling to his knees but he can walk on those and they are just a little sore not bothering him. He has a mild headache, hematoma at the face and a black eye, there is no loss consciousness, nausea, vomiting, vision change, or focal neurologic symptoms. No prodromal symptoms it was an accident/mechanical. He takes a baby aspirin daily no anticoagulants. [facility] Medical History (Updated 10/07/21 @ 01:[address] Evan Gloria MD) Atherosclerotic heart disease of [place] coronary artery without angina pectoris Enlarged prostate History of kidney stones Hyperlipidemia Kidney stones Renal calculi Home Medications multivitamin 1 tab PO QDAY 05/05/17 [History Last Taken Unknown] sildenafil 50 mg tablet (Viagra) 50 mg PO QDAY PRN other 05/05/17 [History Last Taken Unknown] vitamin B12 500 mcg-folic acid 400 mcg tablet 1 tab PO QDAY 05/05/17 [History Last Taken Unknown] aspirin 81 mg tablet,delayed release 81 mg PO DAILY 07/30/19 [History Last Taken Unknown] cholecalciferol (vitamin D3) 50 mcg (2,000 unit) capsule 100 mcg PO DAILY 07/30/19 [History Last Taken Unknown] lorazepam 1 mg tablet 0.25 mg PO DAILY 07/30/19 [History Last Taken Unknown] pyridoxine (vitamin B6) 50 mg capsule (Vitamin B-6) 50 mg PO QDAY 07/30/19 [History Last Taken Unknown] atorvastatin 10 mg tablet 10 mg PO QDAY #90 tabs 07/18/20 [Rx Last Taken Unknown] losartan 25 mg tablet 25 mg PO DAILY #90 tabs 08/17/21 [Rx Last Taken Unknown] Allergy/AdvReac Type Severity Reaction Status Date / Time lisinopril AdvReac Intermediate Dry Cough Verified 10/06/21 23:57 Family History Father , age 78 of [place] CAD (coronary artery disease) Myocardial infarction Mother , Age 97 No problems noted. Brother , age 39 from [place] CAD (coronary artery disease) Myocardial infarction Sudden cardiac Brother , Age 70 heart related, hx CABG CAD (coronary artery disease) history of CABG Surgical History H/O coronary artery bypass surgery (12/20/98) History of appendectomy History of cataract surgery History of left heart catheterization (12/11/98) History of tonsillectomy Status post Mohs surgery (04/2017) Social History Smoking Status: Never smoker alcohol intake: current alcohol intake frequency: a few times a week Alcohol type: wine substance use type: does not use caffeine: Yes Type: carbonated beverages and coffee what type of physical activity do you participate in: walking frequency: 3-4 times per week duration: 45-60 minutes/day seatbelt use: always do you feel safe at home: Yes ROS ROS ED Constitutional Constitutional ED: Denies chills or fever(s) Eyes Eyes: Denies change in vision or diplopia ENT ENT ED: Reports facial pain; Denies ear pain, epistaxis or rhinorrhea Cardiovascular Cardiovascular: Denies chest pain or palpitations Respiratory/Chest Respiratory/Chest: Denies cough or dyspnea Gastrointestinal Gastrointestinal: Denies abdominal pain, diarrhea, melena, nausea or vomiting Genitourinary Genitourinary ED: Denies dysuria or hematuria Musculoskeletal Musculoskeletal: Reports extremity pain; Denies back pain or neck pain Integumentary Denies abscess, Abrasions, laceration or rash Neurologic Neurologic: Reports headache(s); Denies confusion, paresthesias or weakness EXAM Physical Exam Const Vital Signs: 10/06/21 23:58 Temperature 98.2 F Temperature Source Temporal Pulse Rate 66 Respiratory Rate 17 Blood Pressure 144/82 H Blood Pressure Mean 102 Pulse Ox 99 Oxygen Delivery Method Room Air Positive well nourished and well developed General Appearance ED: well developed and NAD HEENT Reports TM's clear and nasal mucous membranes and turbinates normal HEENT Narrative: Large hematoma over the left superior orbital brim and involving the upper eyelid with purpuric skin changes, the skin is intact, he is not able to see out of his eye without assistance with lifting the upper eyelid, and doing so the globe appears normal and atraumatic and he states the vision is normal. No other facial tenderness including the nose and zygomatic arch. No infraorbital hypoesthesia. No step-off at the superior orbital brim, but exam is limited due to the size of the hematoma. Face and Sinus: facial tenderness Tympanic Membrane ED: Yes TM's clear Eyes PERRL and EOMs intact bilaterally Visual Acuity: other Other Details: no entrapment or pain with extraocular movements Neck full ROM and supple General: Negative for tenderness Chest Wall inspection of chest normal and palpation of chest normal Chest: symmetrical chest wall rise; Negative for crepitus or tenderness Resp normal respiratory effort and clear to auscultation bilaterally Percussion: other equal BS bilat Cardio no murmurs Rate: regular rate Rhythm: regular rhythm GI normal to inspection, nondistended, normoactive bowel sounds, soft to palpation and non-tender Back/Spine normal ROM Cervical Spine: Negative for cervical spine tenderness Thoracic Spine / Upper Back: Negative for thoracic spinal tenderness Lumbar Spine / Lower Back: Negative for lumbar spinal tenderness Extremity normal to inspection and full ROM Extremity Narrative: Nontender bilateral knees, full range of motion, no signs of trauma. General Extremety ED: Negative for tenderness Neuro oriented x3, CN's II-XII intact bilaterally, moves all extremities, no focal motor deficits and no sensory deficits noted Subha Coma Scale: document GCS findings Spontaneous Obeys Commands Oriented 15 Sensorium / Orientation: awake and alert Psych mental status grossly normal and thought process normal Skin no wounds Lesions: no lesions Rashes: no rashes MDM MDM MDM Narrative Medical decision making narrative: CT head was obtained, it included the orbits, no evidence of any fracture or intracranial hemorrhage. Ice compresses, supportive care advised, they are comfortable with that plan. Radiography Diagnostic Testing: Clinical Impression(s) from Imaging Studies Brain CT 10/07/21 00:41 IMPRESSION: Chronic changes as described. No acute intracranial hemorrhage or space-occupying lesion. Electronically Signed: Vandana Colin MD at 1:35 EDT , Discharge Plan Triage Chief Complaint: Fall ED Provider: Evan Gloria Dx/Rx/DC Orders Clinical Impression: Closed head injury without loss of consciousness, Traumatic hematoma of face Instructions: Black Eye, ED Head Injury (Adult), ED Hematoma Prescriptions: No Action vitamin B12 500 mcg-folic acid 400 mcg tablet 500-400 mcg tablet 1 tab PO QDAY multivitamin tablet 1 tab PO QDAY sildenafil [Viagra] 50 mg tablet 50 mg PO QDAY PRN (Reason: other) aspirin 81 mg tablet,delayed release (DR/EC) 81 mg PO DAILY lorazepam 1 mg tablet 0.25 mg PO DAILY Label Comments: 1 mg PO 1/4 tablet PRN pyridoxine (vitamin B6) 50 mg capsule 50 mg capsule 50 mg PO QDAY cholecalciferol (vitamin D3) 50 mcg (2,000 unit) capsule 100 mcg PO DAILY atorvastatin 10 mg tablet 10 mg PO QDAY Qty: 90 4RF losartan 25 mg tablet 25 mg PO DAILY Qty: 90 3RF Primary Care Provider: Gina Smith Referrals: Gina Smith MD [Primary Care Provider] - As Needed Disposition Disposition: Home, Self Care
[2021-10-07 01:50] VITALS: BP 132/80; PULSE 62; RESP 16; O2SAT 98
== END 2021-10-07 01:50 | disposition home or self-care (01) ==
PROVIDERS: Emergency Provider Emergency Medicine; PCP Family Medicine; Visit Provider Emergency Medicine
DX: S00.83XA Contusion of other part of head, initial encounter (principal); I25.10 Atherosclerotic heart disease of native coronary artery without angina pectoris; E78.5 Hyperlipidemia, unspecified; W01.0XXA Fall on same level from slipping, tripping and stumbling without subsequent striking against object, initial encounter; Z87.442 Personal history of urinary calculi; Z79.899 Other long term (current) drug therapy; Z79.82 Long term (current) use of aspirin; Y92.009 Unspecified place in unspecified non-institutional (private) residence as the place of occurrence of the external cause; Z95.1 Presence of aortocoronary bypass graft
CPT/HCPCS: 70450; 99282

== ENCOUNTER → 2021-11-27 | Outpatient (CLI) | payer MEDICARE, OTHER, SELFPAY ==
--- NOTE | 2021-11-27 16:15 | RAD_ITS ---
STUDY: X-RAY CHEST REASON FOR EXAM: Male, 76 years old. COUGH TECHNIQUE: PA or AP and lateral COMPARISON: None. FINDINGS: Status post sternotomy. The lungs are clear and expanded. There is no demonstrated pleural abnormality. Normal size heart. Normal mediastinum and misa. Normal visualized pulmonary arteries. Normal visualized aortic arch and descending thoracic aorta. Normal visualized thoracic spine. Normal visualized ribs, clavicles, and shoulders. There is no demonstrated abnormality of the visualized soft tissue structures of the upper abdomen. RAD/Chest PA and Lateral IMPRESSION: Lungs clear. Status post sternotomy. Electronically Signed: Roby Morelos MD, SHAJI at 17:52 EDT ,
== END | disposition home or self-care (01) ==
LOC: MTRAD 16:14
PROVIDERS: PCP Family Medicine; Referring Provider Family Medicine; Visit Provider Family Medicine
DX: U07.1 COVID-19 (principal)
CPT/HCPCS: 71046

== ENCOUNTER → 2022-04-22 | Outpatient (CLI) | payer MEDICARE, OTHER, SELFPAY ==
[2022-04-22 13:53] LABS: PSA,Total- Diagnostic 4.14 ng/mL (0.0-4.0)
== END | disposition home or self-care (01) ==
LOC: LAB 11:58
PROVIDERS: PCP Family Medicine; Referring Provider Urology; Visit Provider Urology
DX: R97.20 Elevated prostate specific antigen [PSA] (principal)
CPT/HCPCS: 36415; 84153

== ENCOUNTER 2022-05-29 10:49 | Day surgery (SDC) | payer MEDICARE, OTHER, SELFPAY ==
[2022-05-23 10:06] LABS: Hematocrit 44.9 % (40-54); Hemoglobin 14.7 g/dL (13.0-16.5); Mean Corp Hgb Conc 32.7 g/dL (32-36); Mean Corpuscular Hgb 32.5 pg (27.0-32.0); Mean Corpuscular Volume 99.3 fL (80-94); Platelet Count 153 K/mm3 (150-450); RBC Distribution Width CV 11.9 % (11.6-14.6); RBC Distribution Width SD 43.7 fl (35.1-43.9); Red Blood Count 4.52 M/mm3 (4.6-6.2); White Blood Count 5.2 K/mm3 (4.4-11.0)
[2022-05-23 10:34] LABS: Anion Gap 6 (5-15); BUN 24 mg/dL (7-18); Calcium,Total 9.4 mg/dL (8.5-10.1); Chloride 105 mmol/L (98-107); Creatinine, Serum 1.09 mg/dL (0.70-1.30); EST Glomerular Filtration Rate 70 mL/min (>60); Est Glom Filt Rate - Afr Amer 84 mL/min (>60); Glucose 96 mg/dL (74-106); Sodium Level 139 mmol/L (136-145)
[2022-05-23 10:45] LABS: AST(SGOT) 13 U/L (15-37); Alanine Aminotransfer ALT/SGPT 22 U/L (16-61); Albumin, Serum 3.8 g/dL (3.2-5.0); Alkaline Phosphatase 70 U/L (45-117); Bilirubin, Direct 0.32 mg/dL (0.00-0.30); Cholesterol 135 mg/dL (200); Globulin 2.9 g/dL (2.2-4.2); High Density Lipoprotein 61 mg/dL; Protein, Total 6.7 g/dL (6.4-8.2); Triglycerides 53 mg/dL; Very Low Density Lipoprotein 11 mg/dL (5-40)
--- NOTE | 2022-05-29 11:10 | PCM.HP.BLA ---
History and Physical Date of Admission: 05/29/22 Date of Service:? 05/13/22 MR#: [id number] Acct: [id number] Name:BERNARDO GILBERT Rep #: [id number] : 1945 ? ? Provider: Dr. Dana Reyes MD Age/Sex:? 76/M ? ? [place] [facility] Status: Signed Intake Vital Signs ? 10/06/2222:58 05/13/2312:44 Height 5 ft 10 in ? Weight: 170 lb 174 lb BMI 24.3 ? BP 144/82 H 131/72 H Blood Pressure Location ? Rt femoral Position ? Sitting Respiration 17 16 Pulse 66 116 H Pulse Source ? Monitor Temp 98.2 F 97 F L Temp Source Temporal Temporal Pulse Oximetry (%) 99 97 Oxygen Delivery Method ? room air Intake Visit Reasons:?Hernia Chief Complaint: hernia [employer] Cpvec Required: No Is patient in pain?: No Allergies lisinopril Adverse Reaction (Intermediate, Verified 10/06/21 23:57) Dry Cough Medications multivitamin 1 tab PO QDAY 05/05/17 [History Confirmed 05/13/22] sildenafil 50 mg tablet (Viagra) 50 mg PO QDAY PRN other 05/05/17 [History Confirmed 05/13/22] vitamin B12 500 mcg-folic acid 400 mcg tablet 1 tab PO QDAY 05/05/17 [History Confirmed 05/13/22] aspirin 81 mg tablet,delayed release 81 mg PO DAILY 07/30/19 [History Confirmed 05/13/22] lorazepam 1 mg tablet 0.25 mg PO DAILY 07/30/19 [History Confirmed 05/13/22] pyridoxine (vitamin B6) 50 mg capsule (Vitamin B-6) 50 mg PO QDAY 07/30/19 [History Confirmed 05/13/22] atorvastatin 10 mg tablet 10 mg PO QDAY #90 tabs 10/15/21 [Rx Confirmed 05/13/22] losartan 25 mg tablet 25 mg PO DAILY #90 tabs 04/24/22 [Rx Confirmed 05/13/22] PFSH Medical History?(Updated 05/14/22 @ 09:[address] Dana Reyes MD) Atherosclerotic heart disease of [place] coronary artery without angina pectoris Enlarged prostate History of kidney stones Hyperlipidemia Kidney stones Renal calculi Surgical History? H/O coronary artery bypass surgery (12/20/98) History of appendectomy History of cataract surgery History of left heart catheterization (12/11/98) History of tonsillectomy Status post Mohs surgery (04/2017) Family History? Father?? ,? age 78 of [place] CAD (coronary artery disease) Myocardial infarctionMother?? ,? Age 97 ?? No problems noted. Brother?? ,? age 39 from [place] CAD (coronary artery disease) Myocardial infarction Sudden cardiac deathBrother?? ,? Age 70 heart related, hx CABG CAD (coronary artery disease) history of CABG Social History? Smoking Status:? Never smoker alcohol intake:? current alcohol intake frequency: a few times a week Alcohol type: wine substance use type:? does not use caffeine:? Yes Type: carbonated beverages and coffee what type of physical activity do you participate in:? walking frequency:? 3-4 times per week duration:? 45-60 minutes/day seatbelt use:? always do you feel safe at home:? Yes HPI HPI HPI: 76-year-old male presents due to right renal hernia.? Patient states he has noticed it for about the last 2 weeks gotten larger.? Patient denies any pain.? Patient states that there is a bulge and it does come right back if he pushes it in.? Patient did previously have a laparoscopic appendectomy for perforated appendicitis by Dr. Kelley 10 to 15 years ago.? Patient's have a trip planned for [place] September 21, 2022.? They are concerned as it was becoming more noticeable/larger interested in getting it fixed prior to the trip. ROS General General: No weight change, appetite, fatigue, colon cancer, breast cancer or weakness HEENT HEENT: No difficulty swallowing, eye injury, eye surgery, swollen glands or hoarseness Endo Endocrine: No thyroid disease, diabetes mellitus, thyroid cancer, Hair loss, heat intolerance or cold intolerance Skin Skin: No rash or changing moles Breast Breast: No left breast lump, right breast lump, nipple discharge, breast pain, abnormal mammogram, abnormal US or breast enlargement Musc Musculoskeletal: No back problems, arthritis, rheumatoid arthritis, gout or joint pain Cardio Cardiovascular: No murmur, pacemaker, heart disease, atrial fibrillation, high blood pressure, heart attack, heart stent, palpitations, shortness of breat with exertion or chest pain Psych Psychiatric: No depression, anxiety or hearing voices Resp Respiratory: No shortness of breath, No sleep apnea, No cough, No COPD, No asthma, No emphysema and No wheezing Gastro Gastrointestinal: No abdominal pain, No nausea or vomiting, No diarrhea, No constipation, No blood in stool, No acid reflux, No hemorrhoids, No ulcers, No gallbladder problem and No black,tarry stools Rodriguez Hematologic: No blood thinners, No blood disorders, No bleeding, No anemia and No blood clots Neuro Neurologic: No system reviewed and no additional complaints, except as documented, No as per HPI, No abnormal gait, No abnormal hearing, No abnormal movements, No abnormal speech, No behavioral changes, No burning sensations, No confusion, No convulsions, No disequilibrium, No dizziness, No localized weakness, No frequent falls, No headache(s), No lack of coordination, No loss of vision, No memory loss, No numbness, No other visual disturbances, No radicular pain, No restless legs, No sensory deficit, No syncope, No tingling, No tremor(s), No weakness and No other Exam Const General: cooperative, healthy appearing and no acute distress [facility] Head: normal to inspection Resp Effort & Inspection: normal respiratory effort Cardio Rate: regular rate GI Inspection: non-distended Palpation: soft, no guarding, hernia (Right inguinal likely indirect, reducible) and nontender Skin General: no rashes or lesions noted Neuro General: patient oriented x3 Extrem General: no clubbing, cyanosis or edema Psych Affect: normal affect Assessment and Plan Assessment and Plan (1) Right inguinal hernia: ?Status:?Acute Plan Plan to do a right inguinal hernia repair with mesh. Reviewed the procedure with the patient including the risks, including but not limited to infection, bleeding, paresthesia, chronic pain, injury to small bowel or contents of the spermatic cord, and recurrence. All questions were answered.? Patient and his had no further question this time. Dana Reyes M.D. Pager: [phone] [facility] [address] [place] [address], [facility], [address] [place] [address] Office: [phone] Coding Level of Care Code Off vis,new,level 3 Diagnoses Right inguinal hernia? K40.90 05/15/22 1237 <Electronically signed by Dana Reyes MD> Date Dana Reyes MD
[2022-05-29] MEDS: Lactated Ringers 1,000 ML 15 ML IV (11:15)
[2022-05-29 11:16] VITALS: BP 135/63; PULSE 66; RESP 18; TEMP 36.4; O2SAT 100; BMI 24.7
[2022-05-29] MEDS: Cefazolin 2 GM in 0.9% Normal Saline 100 ML IV (11:46)
[2022-05-29] MEDS: Bupivacaine 0.25% 30 ML Vial (12:02)
--- NOTE | 2022-05-29 12:49 | PCM.OPRPT ---
Report of Operation Date of Procedure: 05/29/22 Pre-Operative Diagnosis: Right inguinal hernia Post-Operative Diagnosis: Right direct inguinal hernia Surgery/Procedure Performed:: Right inguinal hernia repair of mesh Surgeon: Dana Reyes production control coordinator: Jasmin Ashton Type of Anesthesia: General/Supplemental Anesthesiologist: Lane Chaves Special Medications: Ancef 2 g IV x1 Specimen's removed: None Estimated Blood Loss (mL): < 10 cc Description of Procedure: Indications: This is a 76 -year-old male who developed right inguinal hernia. Right inguinal hernia repair with mesh was elected. Description procedure: The patient was taken to the operating room. A timeout was completed verifying correct patient, procedure, site, positioning, and special equipment prior to beginning procedure. General anesthesia was induced. The right groin was prepped and draped in usual sterile fashion. An incision was marked in the natural skin crease and planned in the near the pubic tubercle. A field block was produced by raising skin wheals along the proposed incision in a skin wound was raised about 1 cm medial to the anterior superior iliac spine using 0.25% Marcaine for a total of 10 mL. Skin incision was made with the knife and deepened through the Tanya and Camper's fascia with electrocautery until the aponeurosis of the external oblique was a identified. This was cleaned and the external ring exposed. Hemostasis was achieved in the wound. An incision was made in the midpoint of the external oblique aponeurosis in the direction of its fibers. The ilioinguinal nerve was identified and protected throughout the dissection. Flaps of the external oblique were developed cephalad and inferiorly. The cord was identified. It was gently dissected free at the pubic tubercle and encircled with a [place] drain. The floor was found to be weak and with protuberant sac, the floor was imbricated with interrupted 2-0 silk sutures. The vas on the testicular vessels were identified and protected from harm. There is no noted indirect hernia sac A Bard keyhole mesh was cut to the appropriate size. Beginning at the pubic tubercle, the mesh was sutured to the inguinal ligament inferiorly and the conjoined tendon superiorly using interrupted sutures of 2-0 Prolene sutures. Care was taken to assure the mesh was placed in a relaxed fashion to avoid excess tension and no neurovascular structures were caught in the repair. Laterally the tails of mesh were crossed and the internal ring recreated, allowing for passage of the surgeon's 5th fingertip. Hemostasis was again checked. The [place]wood drain was removed. Area was irrigated with saline. External oblique aponeurosis was closed running suture of 3-0 Vicryl, taking care not to catch the ilioinguinal nerve in the suture line. Tanya's fascia was closed with interrupted sutures of 3-0 Vicryl. Skin was closed running subcuticular suture of 4-0 Monocryl with Steri-Strips gauze and Tegaderm. The testes was gently pulled down to the anatomical position the scrotum. Patient tolerated the procedure well and sent to the postanesthesia care in stable condition. Grafts/Implants Used: Bard mesh pre-shaped lot [id number] ref [id number] Complications none
--- NOTE | 2022-05-29 12:54 | DCINST_ITS ---
Discharge Instructions Diet Discharge Diet: Light diet - advance as tolerated Activity Discharge Activity: May Not Drive (while taking narcotic pain medications.) May shower in (days): 1 Lifting Restrictions: no lifting >20 lbs x 2 wks, no strenuous exercise for 4 wks Additional Activity Instructions:: Recommend jockstrap or briefs instead of boxers initially Dressing / Incision Call your doctor if your incision/area has: Continuous Slow Oozing, Sudden Increased Bleeding, Increased Pain/ Swelling, Increased Redness, Foul Smelling Discharge and Swelling at the incision site Call your doctor if you observe: Fever of 101 or Higher Remove Dressing in: 2 days Cleanse incision/area with: Soap & Water Additional Dressing/Incision Instructions:: Steri-Strips will fall off in 7 to 10 days, if they do not fall off okay to remove after 10 days. Follow Up Care Please Follow Up With: Dana Reyes MD When: Call the office for a follow-up appointment 2 weeks; after 5 PM and on the weekends call [phone] with any concerns. Test Results: Test results from this visit will be discussed in further detail at your follow- up appointment, if applicable. Discharge Plan Admission Attending Provider: Dana Reyes Primary Care Provider: Gina Smith Discharge Orders/Prescriptions Prescriptions: New hydrocodone-acetaminophen 5-325 mg tablet 1 tab PO Q6H PRN (Reason: pain) 3 Days Qty: 10 0RF Continued vitamin B12 500 mcg-folic acid 400 mcg tablet 500-400 mcg tablet 1 tab PO QDAY multivitamin tablet 1 tab PO QDAY sildenafil [Viagra] 50 mg tablet 50 mg PO QDAY PRN (Reason: other) lorazepam 1 mg tablet 0.25 mg PO DAILY Label Comments: 1 mg PO 1/4 tablet PRN pyridoxine (vitamin B6) 50 mg capsule 50 mg capsule 100 mg PO QDAY tamsulosin 0.4 mg capsule 0.4 mg PO DAILY Qty: 14 0RF atorvastatin 10 mg tablet 10 mg PO QDAY Qty: 90 4RF losartan 25 mg tablet 25 mg PO DAILY Qty: 90 3RF Held aspirin 81 mg tablet,delayed release (DR/EC) 81 mg PO DAILY Hold Instructions: Resume on 05/31/22. Other Ambulatory Orders: 12 Lead EKG (Routine) Timeframe: [id number] Location: None Selected Ordered By: Dr. James Palma Referrals / Follow Up: Gina Smith MD [Primary Care Provider] - Disposition Disposition (needs filled in before D/C Order can be placed): Home, Self Care
[2022-05-29 13:15] VITALS: BP 114/67; BP 125/67; BP 135/63; PULSE 69; RESP 15; O2SAT 97
[2022-05-29 13:30] VITALS: BP 115/67; BP 135/63; PULSE 67; RESP 16; O2SAT 97
[2022-05-29 13:45] VITALS: BP 131/72; BP 135/63; PULSE 64; RESP 16; TEMP 36.2; O2SAT 98
[2022-05-29] MEDS: HYDROcodone Bitartrate/Apap 5/325 Tablet PO (14:48)
[2022-05-29 15:16] VITALS: BP 121/66; BP 135/63; PULSE 59; RESP 16; TEMP 36.4; O2SAT 98
== END 2022-05-29 15:24 | disposition home or self-care (01) ==
LOC: SDC 10:50 → AC 10:51
PROVIDERS: Anesthesiology; Internal Medicine Cardiovascular Disease; PCP Family Medicine; Referring Provider Surgery; Visit Provider Surgery
PROC: (CPT 49505; principal; 2022-05-29 12:15)
DX: K40.90 Unilateral inguinal hernia, without obstruction or gangrene, not specified as recurrent (principal); E78.5 Hyperlipidemia, unspecified; Z87.442 Personal history of urinary calculi; I25.10 Atherosclerotic heart disease of native coronary artery without angina pectoris; Z95.1 Presence of aortocoronary bypass graft; Z86.79 Personal history of other diseases of the circulatory system
CPT/HCPCS: 49505; 00830; 36415; 80048; 80061; 80076; 85027; 93005; J7120; C1781

== ENCOUNTER → 2023-04-25 | Outpatient (CLI) | payer MEDICARE, OTHER, SELFPAY ==
--- OUTSIDE RECORDS SUMMARY | 2023-04-25 08:46 | XMS RPT_ITS | CCD ---
Author Name Unknown Address [id number] [place] [address] Organization [facility] Care Team Providers Care Sleeve Ironer Name Role Phone MD Kizzy, Fco Caraballo Unavailable Shruthi PECK, Nataly Moralez Unavailable Unavailable Viktoria Wu Unavailable Viktoria Wu Unavailable Medications Completed/Discontinued Medications Medication Drug Class(es) Dates Sig (Normalized) Sig (Original) aspirin 81 mg oral tablet (16 sources) Nonsteroidal Anti-inflammatory Drug Start: 05-18-2010 take 1 tablet by mouth once daily ASPIRIN 81 MG TABS One tablet by mouth daily ASPIRIN [id number] Radha Bingham RN Problems Active Problems Problem Classification Problem Date Documented Da te Episodic/Chronic Coronary atherosclerosis and other heart disease (20 sources) Coronary atherosclerosis; Translations: [Coronary arteriosclerosis ] Onset: 05-18-2010 Resolved: 04-06-2015 04-06-2015 Chronic Disorders of lipid metabolism (16 sources) Hyperlipidemia; Translations: [Hyperlipidemia, unspecified] Onset: 05-18-2010 05-18-2010 Chronic Unclassified (10 sources) Long-term drug therapy; Translations: [Long-term (current) use of other medications] Onset: 05-18-2010 Resolved: 04-06-2015 04-06-2015 Past or Other Problems Problem Classification Problem Date Documented Da te Episodic/Chronic Coronary atherosclerosis and other heart disease (8 sources) Presence of aortocoronary bypass graft; Translations: [Presence of aortocoronary bypass graft] Onset: 10-26-2010 10-26-2010 Episodic Malaise and fatigue (8 sources) Fatigue; Translations: [Other fatigue] Onset: 06-18-2016 06-18-2016 Episodic Mycoses (8 sources) Tinea unguium; Translations: [Tinea unguium] 06-14-2010 Episodic Other aftercare (20 sources) Long-term (current) use of other medications; Translations: [Other intermediate card tender (current) drug therapy] Onset: 05-18-2010 Resolved: 04-06-2015 01-17-2012 Episodic Other circulatory disease (8 sources) Carotid bruit; Translations: [Other specified symptoms and signs involving the circulatory and respiratory systems] Onset: 05-21-2010 05-21-2010 Episodic Other lower respiratory disease (8 sources) Dyspnea on exertion; Translations: [Other forms of dyspnea] Onset: 06-18-2016 06-18-2016 Episodic Other nutritional; endocrine; and metabolic disorders (8 sources) Body mass index (BMI) 25.0-25.9, adult; Translations: [Body mass index (BMI) 25.0-25.9, adult] Onset: 04-05-2014 04-05-2014 Episodic Residual codes; unclassified (4 sources) FH: Hypertension; Translations: [Family history of ischemic heart disease and other diseases of the circulatory system] Resolved: 04-06-2015 04-05-2014 Episodic Unclassified (20 sources) Family history of ischemic heart disease and other diseases of the circulatory system; Translations: [FH: Hypertension] Resolved: 04-06-2015 04-05-2014 Episodic Results Test Name Value Interpretation Reference Range Facil ity Vital Signs Date Time Vital Sign Value Performing Clinician Nava lopez 10-31-2016 09:25-0400 BMI (Body Mass Index) 24.39 kg/m2 Viktoria [facility] Work Phone: 10-31-2016 09:25-0400 BP Diastolic 70 mm[Hg] [facility]toria [facility] Work Phone: 10-31-2016 09:25-0400 BP Systolic 120 mm[Hg] Viktoria [facility] Work Phone: 10-31-2016 09:25-0400 Height 177.8 cm Viktoria [facility] Work Phone: 10-31-2016 09:25-0400 Pulse (Heart Rate) 68 /min Viktoria [facility] Work Phone: 10-31-2016 09:25-0400 Respiratory Rate 20 /min [facility] Work Phone: 10-31-2016 09:25-0400 Weight 77.11 kg [facility] Work Phone: 06-18-2016 08:44-0400 Heart rate 72 /min [facility] Work Phone: 06-18-2016 08:34-0400 BMI (Body Mass Index) 24.39 kg/m2 MD [facility] Work Phone: 06-18-2016 08:34-0400 BP Diastolic 60 mm[Hg] MD [facility] Work Phone: 06-18-2016 08:34-0400 BP Systolic 120 mm[Hg] MD [facility] Work Phone: 06-18-2016 08:34-0400 Height 177.8 cm Fco Durand MD [facility] Work Phone: 06-18-2016 08:34-0400 Pulse (Heart Rate) 72 /min MD [facility] Work Phone: 06-18-2016 08:34-0400 Respiratory Rate 20 /min MD [facility] Work Phone: 06-18-2016 08:34-0400 Weight 77.11 kg MD [facility] Work Phone: 05-03-2016 08:04-0400 BMI (Body Mass Index) 24.53 kg/m2 MD [facility] Work Phone: 05-03-2016 08:04-0400 BP Diastolic 58 mm[Hg] MD [facility] Work Phone: 05-03-2016 08:04-0400 BP Systolic 104 mm[Hg] Fco Durand MD [facility] Work Phone: 05-03-2016 08:04-0400 Height 177.8 cm Fco Durand MD [facility] Work Phone: 05-03-2016 08:04-0400 Pulse (Heart Rate) 68 /min Fco Durand MD [facility] Work Phone: 05-03-2016 08:04-0400 Respiratory Rate 18 /min Fco Durand MD [facility] Work Phone: 05-03-2016 08:04-0400 Weight 77.57 kg MD [facility] Work Phone: 10-24-2015 09:52-0400 BSA (Body Surface Area) 1.98 m2 Fco Durand MD [facility] Work Phone: 08-30-2010 08:23-0400 Body Temperature 97.4 [degF] Fco Durand MD [facility] Work Phone: 08-30-2010 08:23-0400 Pulse Oximetry 100 % Fco Durand MD [facility] Work Phone: Procedures Date Procedure Procedure Detail Performing Clinician Start: 10-28-2016 End: 10-28-2016 *Hepatic Function Panel Talya Green Start: 10-28-2016 End: 10-28-2016 Lipid 1996 panel - Serum or Plasma Fco Durand MD Start: 10-28-2016 End: 10-28-2016 *Hepatic Function Panel Talya Green Start: 10-28-2016 End: 10-28-2016 Lipid panel [AGGREGATE] Talya Green Start: 06-18-2016 End: 06-18-2016 *BMP Fco Durand MD Start: 06-18-2016 End: 06-18-2016 *CBC with Differential Fco Durand MD Start: 06-18-2016 End: 06-18-2016 CARIDAD Durand MD Start: 06-18-2016 End: 06-18-2016 Ecg routine ecg w/least 12 lds w/i&r Fco Durand MD Start: 06-18-2016 End: 06-18-2016 Follow Up Appt 3 months Talya Green Start: 06-18-2016 End: 06-18-2016 Magnesium [Mass/volume] in Serum or Plasma Fco Durand MD Start: 06-18-2016 End: 06-18-2016 Nuclear stress test -exercise Fco Euceda MD Start: 06-18-2016 End: 06-18-2016 Thyrotropin [Units/volume] in Serum or Plasma Fco Durand MD Start: 06-18-2016 End: 06-18-2016 Thyroxine (T4) [Mass/volume] in Serum or Plasma Fco Durand MD Start: 06-18-2016 End: 06-18-2016 *BMP Fco Durand MD Start: 06-18-2016 End: 06-18-2016 *CBC with Differential Fco Durand MD Start: 06-18-2016 End: 06-18-2016 CARIDAD Durand MD Start: 06-18-2016 End: 06-18-2016 Electrocardiogram, complete Fco Manning i, MD Start: 06-18-2016 End: 06-18-2016 Follow Up Appt 3 months Talya Green Start: 06-18-2016 End: 06-18-2016 Magnesium Fco Durand MD Start: 06-18-2016 End: 06-18-2016 Nuclear stress test -exercise Fco Euceda MD Start: 06-18-2016 End: 06-18-2016 Thyroid stimulating hormone (TSH) Fco Durand MD Start: 06-18-2016 End: 06-18-2016 Thyroxine (T4) Fco Durand MD Start: 05-03-2016 End: 05-03-2016 CARIDAD Durand MD Start: 05-03-2016 End: 05-03-2016 Follow Up Appt 6 months Talya Green Start: 05-03-2016 End: 05-03-2016 CARIDAD Durand MD Start: 05-03-2016 End: 05-03-2016 Follow Up Appt 6 months Talya Green Start: 04-22-2016 End: 05-01-2016 *Hepatic Function Panel Talya Green Start: 04-22-2016 End: 05-01-2016 Lipid 1996 panel - Serum or Plasma Fco Durand MD Start: 04-22-2016 End: 05-01-2016 *Hepatic Function Panel Talya Green Start: 04-22-2016 End: 05-01-2016 Lipid panel [AGGREGATE] Talya Green Start: 10-24-2015 End: 10-24-2015 CARIDAD Durand MD Start: 10-24-2015 End: 10-24-2015 Follow Up Appt 6 months Talya Green Start: 10-24-2015 End: 10-24-2015 CARIDAD Durand MD Start: 10-24-2015 End: 10-24-2015 Follow Up Appt 6 months Talya Green Start: 10-04-2015 End: 10-20-2015 *Hepatic Function Panel Talya Green Start: 10-04-2015 End: 10-20-2015 Lipid 1996 panel - Serum or Plasma Fco Durand MD Start: 10-04-2015 End: 10-20-2015 *Hepatic Function Panel Talya Green Start: 10-04-2015 End: 10-20-2015 Lipid panel [AGGREGATE] Talya Green Start: 04-06-2015 End: 04-06-2015 CARIDAD Durand MD Start: 04-06-2015 End: 05-15-2015 Echocardiography Fco Durand MD Start: 04-06-2015 End: 04-06-2015 Follow Up Appt 6 months Talya Green Start: 04-06-2015 End: 05-15-2015 Nuclear stress test -exercise Fco Euceda MD Start: 04-06-2015 End: 04-06-2015 CARIDAD Durand MD Start: 04-06-2015 End: 05-15-2015 Echocardiography Fco Durand MD Start: 04-06-2015 End: 04-06-2015 Follow Up Appt 6 months Talya Green Start: 04-06-2015 End: 05-15-2015 Nuclear stress test -exercise Fco Euceda MD Start: 04-05-2015 End: 04-05-2015 *Hepatic Function Panel Talya Green Start: 04-05-2015 End: 04-05-2015 Lipid 1996 panel - Serum or Plasma Fco Durand MD Start: 04-05-2015 End: 04-05-2015 *Hepatic Function Panel Talya Green Start: 04-05-2015 End: 04-05-2015 Lipid panel [AGGREGATE] Talya Green Start: 10-04-2014 End: 10-04-2014 [employer]ER Fco Durand MD Start: 10-04-2014 End: 10-05-2014 Documentation of current medications Fco Durand MD Start: 10-04-2014 End: 10-04-2014 Follow Up Appt 6 months Talya Green Start: 10-04-2014 End: 10-04-2014 CARIDAD Durand MD Start: 10-04-2014 End: 10-05-2014 Documentation of current medications Fco Durand MD Start: 10-04-2014 End: 10-04-2014 Follow Up Appt 6 months Talya Green Start: 10-03-2014 End: 10-03-2014 *Hepatic Function Panel Talya Green Start: 10-03-2014 End: 10-03-2014 Lipid 1996 panel - Serum or Plasma Fco Durand MD Start: 10-03-2014 End: 10-03-2014 *Hepatic Function Panel Talya Green Start: 10-03-2014 End: 10-03-2014 Lipid panel [AGGREGATE] Talya Green Start: 04-05-2014 End: 04-05-2014 CARIDAD Durand MD Start: 04-05-2014 End: 04-06-2014 Documentation of current medications Fco Durand MD Start: 04-05-2014 End: 04-05-2014 Ecg routine ecg w/least 12 lds w/i&r Fco Durand MD Start: 04-05-2014 End: 04-05-2014 Follow Up Appt 6 months Talya Green Start: 04-05-2014 End: 04-05-2014 CARIDAD Durand MD Start: 04-05-2014 End: 04-06-2014 Documentation of current medications Fco Durand MD Start: 04-05-2014 End: 04-05-2014 Electrocardiogram, complete Fco Manning i, MD Start: 04-05-2014 End: 04-05-2014 Follow Up Appt 6 months Talya Green Start: 04-01-2014 End: 04-04-2014 *Hepatic Function Panel Talya Green Start: 04-01-2014 End: 04-04-2014 Glucose [Mass/volume] in Serum or Plasma Fco Durand MD Start: 04-01-2014 End: 04-04-2014 Lipid 1996 panel - Serum or Plasma Fco Durand MD Start: 04-01-2014 End: 04-04-2014 *Hepatic Function Panel Talya Green Start: 04-01-2014 End: 04-04-2014 Glucose Fco Durand MD Start: 04-01-2014 End: 04-04-2014 Lipid panel [AGGREGATE] Talya Green Start: 04-06-2013 End: 04-06-2013 CARIDAD Durand MD Start: 04-06-2013 End: 04-06-2013 Follow Up Appt 1 year Fco Durand MD Start: 04-06-2013 End: 04-06-2013 CARIDAD Durand MD Start: 04-06-2013 End: 04-06-2013 Follow Up Appt 1 year Fco Durand MD Start: 12-18-2012 End: 04-07-2013 *Hepatic Function Panel Talya Green Start: 12-18-2012 End: 10-19-2015 Glucose [Mass/volume] in Serum or Plasma Fco Durand MD Start: 12-18-2012 End: 04-07-2013 Lipid 1996 panel - Serum or Plasma Fco Durand MD Start: 12-18-2012 End: 04-07-2013 *Hepatic Function Panel Talya Green Start: 12-18-2012 End: 10-19-2015 Glucose [Mass/volume] in Serum or Plasma Fco Durand MD Start: 12-18-2012 End: 10-19-2015 Lipid panel [AGGREGATE] Talya Green Start: 09-11-2012 End: 10-19-2015 CARIDAD Durand MD Start: 09-11-2012 End: 10-19-2015 Follow Up Appt 6 months Talya Green Start: 09-11-2012 End: 10-19-2015 CARIDAD Durand MD Start: 09-11-2012 End: 10-19-2015 Follow Up Appt 6 months Talya Green Start: 06-17-2012 End: 07-22-2012 *Hepatic Function Panel Talya Green Start: 06-17-2012 End: 07-22-2012 Lipid 1996 panel - Serum or Plasma Fco Durand MD Start: 06-17-2012 End: 07-22-2012 *Hepatic Function Panel Talya Green Start: 06-17-2012 End: 07-22-2012 Lipid panel [AGGREGATE] Talya Green Start: 01-27-2012 End: 10-03-2014 *Hepatic Function Panel Talya Green Start: 01-27-2012 End: 07-22-2012 Lipid 1996 panel - Serum or Plasma Fco Durand MD Start: 01-27-2012 End: 10-03-2014 *Hepatic Function Panel Talya Green Start: 01-27-2012 End: 07-22-2012 Lipid panel [AGGREGATE] Talya Green Start: 01-21-2012 End: 01-21-2012 Follow Up Appt 6 months Talya Green Start: 01-21-2012 End: 01-21-2012 Follow Up Appt 6 months Talya Green Start: 07-30-2011 End: 07-30-2011 Follow Up Appt 6 months Talya Green Start: 07-30-2011 End: 07-30-2011 Follow Up Appt 6 months Talya Green Start: 01-22-2011 End: 01-16-2012 *Hepatic Function Panel Talya Green Start: 01-22-2011 End: 01-22-2011 Follow Up Appt 6 months Talya Green Start: 01-22-2011 End: 01-16-2012 Lipid 1996 panel - Serum or Plasma Fco Durand MD Start: 01-22-2011 End: 01-16-2012 *Hepatic Function Panel Talya Green Start: 01-22-2011 End: 01-22-2011 Follow Up Appt 6 months Talya Green Start: 01-22-2011 End: 01-16-2012 Lipid panel [AGGREGATE] Talya Green Start: 06-14-2010 End: 06-21-2010 Hepatic function panel Vasquez Mcdonald Start: 06-14-2010 End: 06-21-2010 Hepatic function panel Vasquez Mcdonald Plan of Treatment Date Care Activity Detail Author Start: 05-06-2017 End: 05-06-2017 Appointment Appointment [facility] Work Phone: Start: 04-30-2017 End: 10-31-2016 *Hepatic Function Panel *Hepatic Function Panel [facility] Work Phone: Start: 04-30-2017 End: 10-31-2016 Lipid 1996 panel *Lipid Profile CC PCP [facility] Work Phone: Start: 04-30-2017 End: 10-31-2016 *Hepatic Function Panel *Hepatic Function Panel [facility] Work Phone: Start: 04-30-2017 End: 10-31-2016 Lipid 1996 panel *Lipid Profile CC PCP [facility] Work Phone: Start: 11-01-2016 End: 05-03-2016 *Hepatic Function Panel *Hepatic Function Panel [facility] Work Phone: Start: 11-01-2016 End: 05-03-2016 Lipid panel [AGGREGATE] *Lipid Profile CC PCP [facility] Work Phone: Start: 10-31-2016 End: 10-31-2016 [employer] [facility] Work Phone: Start: 10-31-2016 End: 10-31-2016 Follow Up Appt 6 months Follow Up Appt 6 months [facility] Work Phone: Start: 10-31-2016 End: 10-31-2016 Appointment Appointment [facility] Work Phone: Start: 10-31-2016 End: 10-31-2016 Appointment Appointment [facility] Work Phone: Start: 10-31-2016 End: 10-31-2016 [employer] [facility] Work Phone: Start: 10-31-2016 End: 10-31-2016 Follow Up Appt 6 months Follow Up Appt 6 months [facility] Work Phone: Start: 10-28-2016 End: 10-28-2016 *Hepatic Function Panel *Hepatic Function Panel [facility] Work Phone: Start: 10-28-2016 End: 10-28-2016 Lipid 1996 panel *Lipid Profile CC PCP [facility] Work Phone: Start: 10-28-2016 End: 10-28-2016 *Hepatic Function Panel *Hepatic Function Panel [facility] Work Phone: Start: 10-28-2016 End: 10-28-2016 Lipid panel [AGGREGATE] *Lipid Profile CC PCP [facility] Work Phone: Start: 06-18-2016 End: 06-18-2016 *BMP *BMP [facility] Work Phone: Start: 06-18-2016 End: 06-18-2016 *CBC with Differential *CBC with Differential [facility] Work Phone: Start: 06-18-2016 End: 06-18-2016 [employer] [facility] Work Phone: Start: 06-18-2016 End: 06-18-2016 Ecg routine ecg w/least 12 lds w/i&r EKG (In office) [facility] Work Phone: Start: 06-18-2016 End: 06-18-2016 Follow Up Appt 3 months Follow Up Appt 3 months [facility] Work Phone: Start: 06-18-2016 End: 06-18-2016 Magnesium mass conc *Magnesium [facility] Work Phone: Start: 06-18-2016 End: 06-18-2016 Nuclear stress test -exercise Nuclear stress test -exercise [email or web address] Work Phone: Start: 06-18-2016 End: 06-18-2016 T4 mass conc *T4 (Total) [facility] Work Phone: Start: 06-18-2016 End: 06-18-2016 Thyrotropin Qn *TSH [facility] Work Phone: Start: 06-18-2016 End: 06-18-2016 Appointment Appointment [email or web address] Work Phone: Start: 06-18-2016 End: 06-18-2016 *BMP *BMP [facility] Work Phone: Start: 06-18-2016 End: 06-18-2016 *CBC with Differential *CBC with Differential [facility] Work Phone: Start: 06-18-2016 End: 06-18-2016 [employer] [facility] Work Phone: Start: 06-18-2016 End: 06-18-2016 Electrocardiogram, complete EKG (In office) [facility] Work Phone: Start: 06-18-2016 End: 06-18-2016 Follow Up Appt 3 months Follow Up Appt 3 months [facility] Work Phone: Start: 06-18-2016 End: 06-18-2016 Magnesium *Magnesium [facility] Work Phone: Start: 06-18-2016 End: 06-18-2016 Nuclear stress test -exercise Nuclear stress test -exercise [facility] Work Phone: Start: 06-18-2016 End: 06-18-2016 Thyroid stimulating hormone (TSH) *TSH [facility] Work Phone: Start: 06-18-2016 End: 06-18-2016 Thyroxine (T4) *T4 (Total) [facility] Work Phone: Start: 05-03-2016 End: 05-03-2016 [employer] [facility] Work Phone: Start: 05-03-2016 End: 05-03-2016 Follow Up Appt 6 months Follow Up Appt 6 months [facility] Work Phone: Start: 05-03-2016 End: 05-03-2016 [employer]ER [employer] [facility] Work Phone: Start: 05-03-2016 End: 05-03-2016 Follow Up Appt 6 months Follow Up Appt 6 months [facility] Work Phone: Start: 04-22-2016 End: 05-01-2016 *Hepatic Function Panel *Hepatic Function Panel [facility] Work Phone: Start: 04-22-2016 End: 05-01-2016 Lipid 1996 panel *Lipid Profile CC PCP [facility] Work Phone: Start: 04-22-2016 End: 05-01-2016 *Hepatic Function Panel *Hepatic Function Panel [facility] Work Phone: Start: 04-22-2016 End: 05-01-2016 Lipid panel [AGGREGATE] *Lipid Profile CC PCP [facility] Work Phone: Start: 10-24-2015 End: 10-24-2015 [employer]ER [employer] [facility] Work Phone: Start: 10-24-2015 End: 10-24-2015 Follow Up Appt 6 months Follow Up Appt 6 months [facility] Work Phone: Start: 10-24-2015 End: 10-24-2015 [employer]ER [employer] [facility] Work Phone: Start: 10-24-2015 End: 10-24-2015 Follow Up Appt 6 months Follow Up Appt 6 months [facility] Work Phone: Start: 10-04-2015 End: 10-20-2015 *Hepatic Function Panel *Hepatic Function Panel [facility] Work Phone: Start: 10-04-2015 End: 10-20-2015 Lipid 1996 panel *Lipid Profile CC PCP [facility] Work Phone: Start: 10-04-2015 End: 10-20-2015 *Hepatic Function Panel *Hepatic Function Panel [facility] Work Phone: Start: 10-04-2015 End: 10-20-2015 Lipid panel [AGGREGATE] *Lipid Profile CC PCP [facility] Work Phone: Start: 04-06-2015 End: 04-06-2015 [employer] [facility] Work Phone: Start: 04-06-2015 End: 04-07-2015 Echocardiography Echocardiogram (complete) [facility] Work Phone: Start: 04-06-2015 End: 04-06-2015 Follow Up Appt 6 months Follow Up Appt 6 months [facility] Work Phone: Start: 04-06-2015 End: 04-07-2015 Nuclear stress test -exercise Nuclear stress test -exercise [facility] Work Phone: Start: 04-06-2015 End: 04-06-2015 [employer] [facility] Work Phone: Start: 04-06-2015 End: 04-07-2015 Echocardiography Echocardiogram (complete) [facility] Work Phone: Start: 04-06-2015 End: 04-06-2015 Follow Up Appt 6 months Follow Up Appt 6 months [facility] Work Phone: Start: 04-06-2015 End: 04-07-2015 Nuclear stress test -exercise Nuclear stress test -exercise [facility] Work Phone: Start: 04-05-2015 End: 04-05-2015 *Hepatic Function Panel *Hepatic Function Panel [facility] Work Phone: Start: 04-05-2015 End: 04-05-2015 Lipid 1996 panel *Lipid Profile CC PCP [facility] Work Phone: Start: 04-05-2015 End: 04-05-2015 *Hepatic Function Panel *Hepatic Function Panel [facility] Work Phone: Start: 04-05-2015 End: 04-05-2015 Lipid panel [AGGREGATE] *Lipid Profile CC PCP [facility] Work Phone: Start: 10-04-2014 End: 10-04-2014 [employer] [facility] Work Phone: Start: 10-04-2014 End: 10-04-2014 Follow Up Appt 6 months Follow Up Appt 6 months [facility] Work Phone: Start: 10-04-2014 End: 10-04-2014 [employer] [facility] Work Phone: Start: 10-04-2014 End: 10-04-2014 Follow Up Appt 6 months Follow Up Appt 6 months [facility] Work Phone: Start: 10-03-2014 End: 10-03-2014 *Hepatic Function Panel *Hepatic Function Panel [facility] Work Phone: Start: 10-03-2014 End: 10-03-2014 Lipid 1996 panel *Lipid Profile CC PCP [facility] Work Phone: Start: 10-03-2014 End: 10-03-2014 *Hepatic Function Panel *Hepatic Function Panel [facility] Work Phone: Start: 10-03-2014 End: 10-03-2014 Lipid panel [AGGREGATE] *Lipid Profile CC PCP [facility] Work Phone: Start: 04-05-2014 End: 04-05-2014 [employer]ER [employer] [facility] Work Phone: Start: 04-05-2014 End: 04-05-2014 Ecg routine ecg w/least 12 lds w/i&r EKG (In office) [email or web address] Work Phone: Start: 04-05-2014 End: 04-05-2014 Follow Up Appt 6 months Follow Up Appt 6 months [facility] Work Phone: Start: 04-05-2014 End: 04-05-2014 [employer]ER [employer] [email or web address] Work Phone: Start: 04-05-2014 End: 04-05-2014 Electrocardiogram, complete EKG (In office) [facility] Work Phone: Start: 04-05-2014 End: 04-05-2014 Follow Up Appt 6 months Follow Up Appt 6 months [facility] Work Phone: Start: 04-01-2014 End: 04-04-2014 *Hepatic Function Panel *Hepatic Function Panel [facility] Work Phone: Start: 04-01-2014 End: 04-04-2014 Glucose mass conc *Glucose, Fasting [email or web address] Work Phone: Start: 04-01-2014 End: 04-04-2014 Lipid 1996 panel *Lipid Profile CC PCP [facility] Work Phone: Start: 04-01-2014 End: 04-04-2014 *Hepatic Function Panel *Hepatic Function Panel [facility] Work Phone: Start: 04-01-2014 End: 04-04-2014 Glucose *Glucose, Fasting [facility] Work Phone: Start: 04-01-2014 End: 04-04-2014 Glucose mass conc *Glucose, Fasting [facility] Work Phone: Start: 04-01-2014 End: 04-04-2014 Lipid panel [AGGREGATE] *Lipid Profile CC PCP [facility] Work Phone: Start: 04-06-2013 End: 04-06-2013 [employer] [facility] Work Phone: Start: 04-06-2013 End: 04-06-2013 Follow Up Appt 1 year Follow Up Appt 1 year [facility] Work Phone: Start: 04-06-2013 End: 04-06-2013 [employer]ER [employer] [facility] Work Phone: Start: 04-06-2013 End: 04-06-2013 Follow Up Appt 1 year Follow Up Appt 1 year [facility] Work Phone: Start: 12-18-2012 End: 04-07-2013 *Hepatic Function Panel *Hepatic Function Panel [facility] Work Phone: Start: 12-18-2012 End: 10-19-2015 Glucose mass conc *Glucose, Fasting [facility] Work Phone: Start: 12-18-2012 End: 04-07-2013 Lipid 1996 panel *Lipid Profile CC PCP [facility] Work Phone: Start: 12-18-2012 End: 04-07-2013 *Hepatic Function Panel *Hepatic Function Panel [facility] Work Phone: Start: 12-18-2012 End: 10-19-2015 Glucose *Glucose, Fasting [facility] Work Phone: Start: 12-18-2012 End: 10-19-2015 Glucose mass conc *Glucose, Fasting [facility] Work Phone: Start: 12-18-2012 End: 04-07-2013 Lipid panel [AGGREGATE] *Lipid Profile CC PCP [facility] Work Phone: Start: 09-11-2012 End: 10-19-2015 [employer] [facility] Work Phone: Start: 09-11-2012 End: 10-19-2015 Follow Up Appt 6 months Follow Up Appt 6 months [facility] Work Phone: Start: 09-11-2012 End: 10-19-2015 [employer] [facility] Work Phone: Start: 09-11-2012 End: 10-19-2015 Follow Up Appt 6 months Follow Up Appt 6 months [facility] Work Phone: Start: 06-17-2012 End: 07-22-2012 *Hepatic Function Panel *Hepatic Function Panel [facility] Work Phone: Start: 06-17-2012 End: 07-22-2012 Lipid 1996 panel *Lipid Profile [facility] Work Phone: Start: 06-17-2012 End: 07-22-2012 *Hepatic Function Panel *Hepatic Function Panel [facility] Work Phone: Start: 06-17-2012 End: 07-22-2012 Lipid panel [AGGREGATE] *Lipid Profile [facility] Work Phone: Start: 01-27-2012 End: 10-03-2014 *Hepatic Function Panel *Hepatic Function Panel [facility] Work Phone: Start: 01-27-2012 End: 07-22-2012 Lipid 1996 panel *Lipid Profile [facility] Work Phone: Start: 01-27-2012 End: 10-03-2014 *Hepatic Function Panel *Hepatic Function Panel [facility] Work Phone: Start: 01-27-2012 End: 07-22-2012 Lipid panel [AGGREGATE] *Lipid Profile [facility] Work Phone: Start: 01-21-2012 End: 01-21-2012 Follow Up Appt 6 months Follow Up Appt 6 months [facility] Work Phone: Start: 01-21-2012 End: 01-21-2012 Follow Up Appt 6 months Follow Up Appt 6 months [facility] Work Phone: Start: 07-30-2011 End: 07-30-2011 Follow Up Appt 6 months Follow Up Appt 6 months [facility] Work Phone: Start: 07-30-2011 End: 07-30-2011 Follow Up Appt 6 months Follow Up Appt 6 months [facility] Work Phone: Start: 01-22-2011 End: 01-16-2012 *Hepatic Function Panel *Hepatic Function Panel [facility] Work Phone: Start: 01-22-2011 End: 01-22-2011 Follow Up Appt 6 months Follow Up Appt 6 months [facility] Work Phone: Start: 01-22-2011 End: 01-16-2012 Lipid 1996 panel *Lipid Profile [facility] Work Phone: Start: 01-22-2011 End: 01-16-2012 *Hepatic Function Panel *Hepatic Function Panel [facility] Work Phone: Start: 01-22-2011 End: 01-22-2011 Follow Up Appt 6 months Follow Up Appt 6 months [facility] Work Phone: Start: 01-22-2011 End: 01-16-2012 Lipid panel [AGGREGATE] *Lipid Profile [facility] Work Phone: Start: 06-14-2010 End: 06-21-2010 Hepatic function panel *Liver/Hepatic Function Panel [facility] Work Phone: Start: 06-14-2010 End: 06-21-2010 Hepatic function panel *Liver/Hepatic Function Panel [facility] Work Phone: Patient Education [facility] Work Phone: Progress note 08-26-2020 Note Date & Type Note Facility 08-26-2020 Note HNO ID: [id number] Author: Emil Villafuerte APRN.ESTHER Service: ? Author Type: Nurse Practitioner Type: Progress Notes Filed: 08/26/2020 3:21 PM Note Text: Visit Date: August 26, 2020 Patient Name: Mr.Richard Chey Wang Date of : 1945 MRN/E #: [id number] Chief Complaint Patient presents with: Toe Pain (Big): left, redness and black under toenail x 3 days History of present illness Bernardo Wang is a 75 year old male. Presents with complaints of redness and discoloration of the left great toe that has been an ongoing issue for several years. He was prescribed terbinafine in 2018 and 2019 and felt the issue started to resolve. 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 Left great toenail is cracking and irritated although he denies having any pain in the toe. He has not taken anything to relieve his symptoms. PAIN EVALUATION No data found in the last 1 encounters. ALLERGIES No Known Allergies PAST MEDICAL HISTORY Diagnosis Date - Acute appendicitis - Atrial fibrillation (HCC) Had after CABG; no recurrence - Internal hemorrhoids without mention of complication - Kidney stones none for over 10 years now as of 07/23/2010 - Unspecified cardiovascular disease s/p bypass PAST SURGICAL HISTORY Procedure Laterality Date - CABG, ARTERIAL, FOUR+ 1998 - COLONOSCOP W/ OR W/O [facility] SPEC 06/23/12 Colonoscopy - LAPAROSCOPY, SURGICAL, APPENDECTOMY 09/19/10 Ruptured Social History Tobacco Use - Smoking status: Never Smoker - Smokeless tobacco: Never Used Substance Use Topics - Alcohol use: No - Drug use: No FAMILY HISTORY Problem Relation Age of Onset - Coronary Artery Disease Father Review of Systems Constitutional: Negative for chills, fever and malaise/fatigue. HENT: Negative for congestion and sore throat. Respiratory: Negative for cough and shortness of breath. Cardiovascular: Negative for chest pain and palpitations. Gastrointestinal: Negative for abdominal pain, diarrhea, nausea and vomiting. Musculoskeletal: Negative for myalgias. Skin: Left great toenail discoloration and nail damage Neurological: Negative for dizziness, tingling and headaches. Physical Exam Vitals and nursing note reviewed. Constitutional: Appearance: Normal appearance. Eyes: Extraocular Movements: Extraocular movements intact. Pupils: Pupils are equal, round, and reactive to light. Pulmonary: Effort: Pulmonary effort is normal. Musculoskeletal: Feet: Skin: General: Skin is warm and dry. Neurological: Mental Status: He is alert and oriented to person, place, and time. BP 122/72 Pulse 72 Temp 97.5 Resp 16 Wt 178 lb (80.7kg) SpO2 96% Assessment/Plan (B35.1) Onychomycosis (primary encounter diagnosis) -recommend follow up with podiatry -no recent liver studies completed -discussed red flags -discussed treatment options -follow up with PCP for further management Emil Villafuerte APRN.ESTHER Discussed above plan with patient. Pt agreeable with above plan. [facility] Summary Purpose Family History No Family History Records Found Advance Directives No Advanced Directives Records Found Additional Source Comments (unrecognized sect ion and content) No Status Records Found INFORMATION SOURCE (unrecogn ized section and content) FOR RECORDS PERTAINING TO PATIENTS WHO ARE OR HAVE BEEN ENROLLED IN A CHEMICAL DEPENDENCY/SUBSTANCEABUSE PROGRAM, SOME INFORMATION MAY BE OMITTED. This clinical summary was aggregated from multiple sources. Caution should be exercised in using it in the provision of clinical care. This summary normalizes information from multiple sources, and as a consequence, information in this document may materially change the coding, format and clinical context of patient data. In addition, data may be omitted in some cases. CLINICAL DECISIONS SHOULD BE BASED ON THE PRIMARY CLINICAL RECORDS. [employer] [facility]. provides no warranty or guarantee of the accuracy or completeness of information in this document.
[2023-04-25 09:15] LABS: AST(SGOT) 17 U/L (15-37); Alanine Aminotransfer ALT/SGPT 24 U/L (16-61); Albumin, Serum 3.7 g/dL (3.2-5.0); Alkaline Phosphatase 79 U/L (45-117); Cholesterol 128 mg/dL (200); Globulin 2.8 g/dL (2.2-4.2); High Density Lipoprotein 57 mg/dL; Protein, Total 6.5 g/dL (6.4-8.2); Triglycerides 61 mg/dL; Very Low Density Lipoprotein 12 mg/dL (5-40)
[2023-04-25 09:16] LABS: PSA,Total- Diagnostic 4.12 ng/mL (0.0-4.0)
== END | disposition home or self-care (01) ==
PROVIDERS: Nurse Practitioner Family; PCP Family Medicine; Referring Provider Urology; Visit Provider Urology
DX: R97.20 Elevated prostate specific antigen [PSA] (principal); E78.00 Pure hypercholesterolemia, unspecified
CPT/HCPCS: 36415; 80061; 80076; 84153

== ENCOUNTER → 2023-09-01 | Outpatient (CLI) | payer MEDICARE, OTHER, SELFPAY ==
[2023-09-01 15:24] LABS: Absolute Lymphocyte Count 1.25 X10^3/uL (0.83-4.51); Absolute Neutrophil Count 3.3 X10^3/uL (2.0-7.7); Basophil# 0.03 X10^3/uL; Basophil% 0.6 % (0-1); Eosinophil# 0.19 X10^3/uL; Eosinophils% 3.6 % (0-5); Hematocrit 42.7 % (40-54); Hemoglobin 13.8 g/dL (13.0-16.5); Lymphocyte # 1.25 X10^3/ul (0.83-4.51); Lymphocyte % 23.4 % (19-41); Mean Corp Hgb Conc 32.3 g/dL (32-36); Mean Corpuscular Hgb 32.2 pg (27.0-32.0); Mean Corpuscular Volume 99.5 fL (80-94); Mean Platelet Vol. 9.3 fl (6.2-12.0); Monocyte# 0.55 X10^3/uL; Monocyte% 10.3 % (0-10); NRBC Flagged by Analyzer 0 % (0-5); Neutrophil % 61.7 % (47-70); Platelet Count 172 K/mm3 (150-450); RBC Distribution Width SD 43.8 fl (35.1-43.9); Red Blood Count 4.29 M/mm3 (4.6-6.2); White Blood Count 5.3 K/mm3 (4.4-11.0)
[2023-09-01 15:59] LABS: ALB/GLOB Ratio 1.4 RATIO (0.9-2.4); AST(SGOT) 11 U/L (15-37); Alanine Aminotransfer ALT/SGPT 29 U/L (16-61); Albumin, Serum 3.6 g/dL (3.2-5.0); Alkaline Phosphatase 65 U/L (45-117); Anion Gap 8 (5-15); BUN 21 mg/dL (7-18); BUN/Creat Ratio 19.1 RATIO (10-20); Calcium,Total 9.2 mg/dL (8.5-10.1); Chloride 109 mmol/L (98-107); EST Glomerular Filtration Rate 69 mL/min (>60); Est Glom Filt Rate - Afr Amer 83 mL/min (>60); Globulin 2.6 g/dL (2.2-4.2); Glucose 109 mg/dL (74-106); Potassium 4.3 mmol/L (3.5-5.1); Protein, Total 6.2 g/dL (6.4-8.2); Sodium Level 141 mmol/L (136-145)
== END | disposition home or self-care (01) ==
LOC: BFHLAB 13:43
PROVIDERS: PCP Family Medicine; Referring Provider Family Medicine; Visit Provider Family Medicine
DX: I25.10 Atherosclerotic heart disease of native coronary artery without angina pectoris (principal); I10 Essential (primary) hypertension; E78.5 Hyperlipidemia, unspecified
CPT/HCPCS: 36415; 80053; 85025

== ENCOUNTER → 2024-05-10 | Outpatient (CLI) | payer MEDICARE, OTHER, SELFPAY ==
[2024-05-10 23:48] LABS: PSA,Total- Diagnostic 3.18 ng/mL (0.00-4.00)
[2024-05-11 00:09] LABS: AST(SGOT) 15 U/L (<=37); Alanine Aminotransfer ALT/SGPT 16 U/L (<=46); Albumin, Serum 4.1 g/dL (3.4-4.8); Alkaline Phosphatase 63 U/L (40-129); Bilirubin, Direct 0.44 mg/dL (0.00-0.30); Globulin 2.2 g/dL (2.2-4.2); Protein, Total 6.3 g/dL (5.9-8.4); Total Bilirubin 1.03 mg/dL (0.00-1.30)
[2024-05-11 01:14] LABS: Cholesterol 132 mg/dL (<=200); High Density Lipoprotein 59 mg/dL; Low Density Lipoprotein Calc. 57 mg/dL; Triglycerides 79 mg/dL; Very Low Density Lipoprotein 16 mg/dL (5-40); cholesterol:hdl ratio screen 2.24
== END | disposition home or self-care (01) ==
PROVIDERS: PCP Family Medicine; Referring Provider Internal Medicine Cardiovascular Disease; Visit Provider Internal Medicine Cardiovascular Disease
DX: R97.20 Elevated prostate specific antigen [PSA] (principal); E78.00 Pure hypercholesterolemia, unspecified
CPT/HCPCS: 80061; 80076; 84153

== ENCOUNTER → 2024-09-16 | Outpatient (CLI) | payer MEDICARE, OTHER, SELFPAY ==
[2024-09-16 10:47] LABS: Hematocrit 43.7 % (40-54); Hemoglobin 14.3 g/dL (13.0-16.5); Immature Granulocytes Count 0.030 X10^3/uL (0.0-0.0); Mean Corp Hgb Conc 32.7 g/dL (32-36); Mean Corpuscular Volume 100.2 fL (80-94); Mean Platelet Vol. 9.0 fl (6.2-12.0); NRBC Flagged by Analyzer 0 % (0-5); Platelet Count 170 K/mm3 (150-450); RBC Distribution Width CV 12.1 % (11.6-14.6); RBC Distribution Width SD 45.1 fl (35.1-43.9); Red Blood Count 4.36 M/mm3 (4.6-6.2); White Blood Count 6.1 K/mm3 (4.4-11.0)
[2024-09-16 12:02] LABS: AST(SGOT) 23 U/L (<=37); Alanine Aminotransfer ALT/SGPT 23 U/L (<=46); Albumin, Serum 4.2 g/dL (3.4-4.8); Alkaline Phosphatase 71 U/L (40-129); Anion Gap 10 (5-15); BUN 20 mg/dL (4-19); BUN/Creat Ratio 20.1 RATIO (10-20); Bilirubin, Direct 0.46 mg/dL (0.00-0.30); Calcium,Total 9.6 mg/dL (7.6-11.0); Carbon Dioxide 25.0 mmol/L (21.0-32.0); Chloride 104 mmol/L (98-108); Cholesterol 128 mg/dL (<=200); Globulin 2.1 g/dL (2.2-4.2); Glucose 93 mg/dL (70-99); Low Density Lipoprotein Calc. 52 mg/dL; Potassium 4.7 mmol/L (3.3-5.1); Triglycerides 56 mg/dL; Very Low Density Lipoprotein 11 mg/dL (5-40); cholesterol:hdl ratio screen 1.98
== END | disposition home or self-care (01) ==
LOC: LAB 09:54
PROVIDERS: PCP Family Medicine; Referring Provider Internal Medicine Cardiovascular Disease; Visit Provider Internal Medicine Cardiovascular Disease
DX: Z95.1 Presence of aortocoronary bypass graft (principal); E78.00 Pure hypercholesterolemia, unspecified
CPT/HCPCS: 36415; 80048; 80061; 80076; 84443; 85025

== ENCOUNTER → 2024-10-12 | Outpatient (CLI) | payer MEDICARE, OTHER, SELFPAY ==
--- NOTE | 2024-10-12 06:28 | ECHOD_ITS ---
Reason For Study Reason For Study: CORONARY ARTERY DISEASE Procedure This was a 2D Doppler, Color Flow transthoracic echocardiogram. Exam performed in department. Left Ventricle Normal LV size. The estimated ejection fraction is 53 %. No regional wall motion abnormalities noted. Right Ventricle Normal RV size. Normal systolic function. Atria The left and right atria are normal. Normal right atrium. Mitral Valve Normal mitral valve. Mild (1+) eccentric mitral valve insufficiency. Tricuspid Valve Normal tricuspid valve. Mild tricuspid valve insufficiency. Pulmonary artery systolic pressure is 20 mmHg. Aortic Valve Trisinus/trileaflet aortic valve. Pulmonic Valve Normal pulmonic valve. Great Vessels Normal aortic root. The pulmonary artery is normal size. Inferior vena cava collapse with respiration. Pericardium/Pleural No pericardial effusion. MMode/2D Measurements & Calculations LVIDd: 4.0 cm IVSd: 1.1 cm LVOT diam: 2.2 cm LVIDs: 2.6 cm LVPWd: 0.99 cm LVOT area: 3.8 cm2 RVDd: 4.1 cm FS: 34.3 % asc Aorta Diam: 3.5 cm LAV(MOD-bp): 41.7 ml LVAd ap4: 19.4 cm2 LAV(MOD-bp) Indexed: 21.7 ml/m2 LVLd ap4: 6.4 cm LAV(MOD-sp2): 46.0 ml EDV(MOD-sp4): 47.9 ml LAV(MOD-sp4): 37.4 ml EDV(sp4-el): 50.1 ml LVAs ap4: 12.5 cm2 LVLs ap4: 5.3 cm ESV(MOD-sp4): 24.1 ml ESV(sp4-el): 25.1 ml EF(MOD-sp4): 49.6 % EF(sp4-el): 49.9 % LVAd ap2: 19.6 cm2 SV(MOD-sp4): 23.7 ml SV(MOD-sp2): 27.9 ml LVLd ap2: 6.8 cm SI(MOD-sp4): 12.3 ml/m2 SI(MOD-sp2): 14.5 ml/m2 EDV(MOD-sp2): 47.2 ml EDV(sp2-el): 48.1 ml LVAs ap2: 11.4 cm2 LVLs ap2: 6.2 cm ESV(MOD-sp2): 19.3 ml ESV(sp2-el): 17.8 ml EF(MOD-sp2): 59.0 % SV(sp4-el): 25.0 ml Ao sinus diam: 3.[address] Junction: 2.9 cm LA dimension(2D): 4.3 cm LA A4 area: 15.8 cm2 RA A4 area: 15.9 cm2 TAPSE: 0.91 cm Time Measurements MV dec time: 0.20 sec Doppler Measurements & Calculations MV E max gricel: 54.1 cm/sec Ao V2 max: 81.9 cm/sec LV V1 max: 77.9 cm/sec Ao max P.7 mmHg LV V1 max P.4 mmHg Ao V2 mean: 62.8 cm/sec LV V1 mean P.1 mmHg Ao mean P.7 mmHg LV V1 mean: 49.2 cm/sec Ao V2 VTI: 14.7 cm LV V1 VTI: 15.0 cm AV (velocity ratio): 1.0 HILDA(I,D): 3.9 cm2 HILDA(V,D): 3.6 cm2 SV(LVOT): 57.4 ml PA V2 max: 104.9 cm/sec PI end-d gricel: 124.8 cm/sec TR max gricel: 210.2 cm/sec TR max P.7 mmHg ECHO/Echo Complete Interpretation Summary Normal LV size. The estimated ejection fraction is 53 %. No regional wall motion abnormalities noted. Mild (1+) eccentric mitral valve insufficiency. Ordering Physician: Fco Durand Referring Physician: Fco Durand MD Performed By: Sherice Anderson RDCS
--- OUTSIDE RECORDS SUMMARY | 2024-10-12 06:29 | XMS RPT_ITS | CCD ---
Author Organization [facility] Care Team Providers Care Staffing And Scheduling Coordinator Name Role Phone MD Durand Cyril S Unavailable Shruthi RN, Nataly Moralez Unavailable Unavailable Viktoria Wu Unavailable Viktoria Wu Unavailable Dr. Gina Smith Primary Care Provider [phone] Dr. Gina Smith Referring Provider Dr. Fco Durand Attending Provider Dr. Gina Smith Primary Care Provider [phone] Dr. Gina Smith Referring Provider Dr. Dana Reyse Attending Provider Dr. Wilberto Robert Attending Provider Dr. James Palma Referring Provider Dr. Dana Reyes Referring Provider Dr. Dana Reyes Other Provider Unavailable Primary Care Provider UnavailSABRINA Lamas Referring Unavailable Dr. Gina Smith MD Primary Care Provider Dr. Fco Durand MD Attending Provider Dr. Fco Durand MD Referring Provider [phone] Dr. Addison Ragsdale MD Other Provider Dr. Gina Smith MD Primary Care Provider Dr. Gina Smith MD Referring Provider [phone] Kizzy CURTIS, Dr. Eagle Attending Provider [phone] Kizzy CURTIS, Dr. Eagle Referring Provider Fco Durand Attending Unavailable Addison Ragsdale [employer] Unavailable Gina Smith Primary Care Unavailable KizzyFco lopez Referring Unavailable Gina Smith Primary Care Unavailable Errol Durandril Referring Unavailable Fco Durand Attending Unavailable Gina Smith Primary Care Unavailable Kizzy, Fco Referring Unavailable Fco Durand Attending Unavailable Fco Durand Attending Unavailable Gina Smith Referring Unavailable Gina Smith Primary Care Unavailable Allergies Allergy Classification Reported Allergen(s) Allergy Type Date of Onset Reaction(s) Facility (7 sources) Lisinopril Drug Allergy 10-06-2021 Dry Cough [facility] (1 source) Lisinopril Drug Allergy 09-16-2024 [facility] Repository Medications Current Medications Medication Drug Class(es) Dates Sig (Normalized) Sig (Original) aspirin 81 mg delayed release oral tablet (20 sources) Nonsteroidal Anti-inflammatory Drug Start: 05-05-2017 End: 07-30-2019 take 1 tablet by mouth once daily Aspirin 81 mg tablet,delayed release (DR/EC) Active 81 mg PO DAILY 0 July 30, 2019 9:23am Start: 05-18-2010 take 1 tablet by alyse th once daily Aspirin 81 mg ORAL Tab Take 1 tablet by mouth once daily. 30 tablet 11 07/23/2010 Active Start: 05-18-2010 take 1 tablet by alyse th once daily ASPIRIN 81 MG TABS One tablet by mouth daily ASPIRIN [id number] Radha Bingham RN Start: 05-18-2010 take 1 tablet by alyse th once daily ASPIRIN EC 81 MG TBEC One tablet by mouth daily ASPIRIN [id number] Kimberly Blandon Collagen (3 sources) Start: 08-05-2023 collagen Activ e PO August 05, 2023 12:00am folic acid 0.4 mg / vitamin b12 0.5 mg oral tablet (8 sources) Vitamin B12 Start: 05-05-2017 Vitamin B12-Fo lic Acid 500-400 mcg tablet Active 1 {tbl} PO daily May 05, 2017 12:00am LORazepam 1 mg oral tablet (20 sources) Benzodiazepine Start: 07-30-2019 take 0.25 mg by mouth once daily Lorazepam Active 0.25 MG PO DAILY July 30, 2019 9:23am Start: 05-05-2017 End: 07-30-2019 take 0.25 mg by mouth once daily Lorazepam 1 mg tablet Active 0.25 mg PO DAILY July 30, 2019 9:23am Start: 04-06-2015 LORAZEPAM 1 MG TABS 1/4 tablet by mouth as needed LORAZEPAM [id number] Fco Durand MD Multivitamin preparation (5 sources) Start: 05-05-2017 take 1 tablet by mouth once daily Multivitamin Active 1 TABLET PO daily May 05, 2017 6:35pm Start: 05-05-2017 take 1 tablet by alyse th once daily Multivitamin Active 1 TABLET PO daily May 05, 2017 12:00am Multivitamin tablet (3 sources) Start: 05-05-2017 Multivitamin tablet Active 1 {tbl} PO daily May 05, 2017 12:00am sildenafil 50 mg oral tablet (18 sources) Phosphodiesterase 5 Inhibitor Start: 05-05-2017 take 1 tablet by mouth once daily as needed Sildenafil (Viagra) 50 mg tablet Active 50 mg PO daily as needed for other May 05, 2017 12:00am Start: 05-18-2010 VIAGRA 50 MG T ABS Take as Directed SILDENAFIL CITRATE [id number] Radha Bingham RN THERAPEUTIC MULTIVITAMIN ORAL TAB (2 sources) Start: 10-26-2004 take 1 tablet by mouth once daily THERAPEUTIC MULTIVITAMIN ORAL TAB Take one(1) tablet daily. 0 10/26/2004 Active vitamin b6 50 mg oral capsule (20 sources) Start: 07-30-2019 Pyridoxine (Vi tamin B6) (Vitamin B-6) 50 mg capsule Active 100 mg PO daily July 30, 2019 9:23am Start: 05-05-2017 End: 07-30-2019 take 1 capsule by mouth once daily as needed Pyridoxine (Vitamin B6) (Vitamin B-6) 50 mg capsule Discontinued 50 mg PO daily as needed May 05, 2017 12:00am July 30, 2019 9:25am Start: 05-18-2010 take 1 tablet by alyse th once daily VITAMIN B-6 50 MG TABS One tablet by mouth daily PYRIDOXINE HCL [id number] Radha Bingham RN VITAMINS & MINERALS ORAL TAB (2 sources) Start: 10-26-2004 take 1 tablet by mouth once daily VITAMINS & MINERALS ORAL TAB b6 and b12 qd 0 10/26/2004 Active Completed/Discontinued Medications Medication Drug Class(es) Dates Sig (Normalized) Sig (Original) acetaminophen 325 mg / HYDROcodone bitartrate 5 mg oral tablet (13 sources) Opioid Agonist Start: 05-29-2022 End: 09-16-2024 Hydrocodone-Acetamino phen 5-325 mg tablet Discontinued 1 {tbl} PO EVERY 6 HOURS as needed for pain 10 3 0 May 29, 2022 September 16, 2024 9:16am Postoperative pain Other acute postprocedural pain Start: 05-29-2022 take 1 tablet by alyse th every six hours Hydrocodone-Acetaminophen Active 1 TABLE T PO EVERY 6 HOURS 10 3 May 29, 2022 Start: 04-24-2020 End: 04-27-2020 Hydrocodone-Acetaminophen 1 TABLET tablet Discontinued 1 {tbl} PO EVERY 6 HOURS NEEDED as needed for Pain 10 3 0 April 24, 2020 April 26, 2020 1:00am April 27, 2020 1:03am Calculus of kidney Calculus of kidney Start: 04-24-2020 End: 04-27-2020 take 1 tablet by mouth every six hours as needed Hydrocodone-Acetaminophen Discontinued 1 TABLET PO EVERY 6 HOURS NEEDED 10 3 April 24, 2020 April 27, 2020 1:03am atorvastatin 10 mg oral tablet (20 sources) HMG-CoA Reductase Inhibitor Start: 10-26-2004 End: 11-05-2023 take 1 tablet by mouth once daily Atorvastatin 10 mg tablet Discontinued 10 mg PO daily 90 4 October 28, 2022 10:30am November 05, 2023 7:57am cholecalciferol 0.05 mg oral capsule (8 sources) Vitamin D Start: 07-30-2019 End: 05-13-2022 take 1 capsule by mouth once daily Cholecalciferol (Vitamin D3) 50 mcg (2,000 unit) capsule Discontinued 100 ug PO DAILY July 30, 2019 12:00am May 13, 2022 1:50pm fish oil (16 sources) Start: 05-18-2010 take 1 tablet by mouth once daily FISH OIL CAPS One tablet by mouth daily OMEGA-3 FATTY ACIDS CAPS [id number] Radha Bingham RN Start: 05-18-2010 End: 04-06-2013 take 1 tablet by mouth once daily FISH OIL CAPS One tablet by mouth daily OMEGA-3 FATTY ACIDS CAPS [id number] Fco Durand MD Start: 05-18-2010 take 1 tablet by alyse once daily FISH OIL CAPS One tablet by mouth daily OMEGA-3 FATTY ACIDS CAPS [id number] Radha Bingham RN Start: 05-18-2010 End: 04-06-2013 take 1 tablet by mouth once daily FISH OIL CAPS One tablet by mouth daily OMEGA-3 FATTY ACIDS CAPS [id number] Fco Durand MD lisinopril 5 mg oral tablet (20 sources) Angiotensin Converting Enzyme Inhibitor Start: 05-18-2010 End: 08-17-2021 take 1 tablet by mouth once daily Lisinopril 5 mg tablet Discontinued 5 mg PO daily 90 January 26, 2019 2:20pm August 17, 2021 1:45pm losartan potassium 25 mg oral tablet (19 sources) Angiotensin 2 Receptor Armaan Start: 08-17-2021 End: 03-08-2024 take 1 tablet by mouth once daily Losartan 25 mg tablet Discontinued 25 mg PO DAILY 90 February 19, 2023 11:37am March 08, 2024 3:33pm MULTIPLE VITAMIN (6 sources) Start: 05-21-2010 take 1 tablet by mouth once daily MULTIVITAMINS TABS One tablet by mouth daily MULTIPLE VITAMIN [id number] Malika Rod MULTIPLE VITAMIN (2 sources) Start: 05-21-2010 take 1 tablet by mouth once daily MULTIVITAMINS TABS One tablet by mouth daily MULTIPLE VITAMIN [id number] Malika Rod Start: 05-21-2010 take 1 tablet by alyse th once daily MULTIVITAMINS TABS One tablet by mouth daily MULTIPLE VITAMIN [id number] Malika Rod nitroglycerin 0.4 mg sublingual tablet (8 sources) Nitrate Vasodilator Start: 05-18-2010 NITROSTAT 0.4 MG SUBL 1 tab under tongue every 5min up to 3x NITROGLYCERIN [id number] Radha Bingham RN ondansetron 4 mg disintegrating oral tablet (8 sources) Serotonin-3 Receptor Antagonist Start: 04-24-2020 End: 08-01-2020 take 1 tablet by mouth every eight hours as needed for nausea Ondansetron 4 MG tablet Discontinued 4 mg PO EVERY 8 HOURS NEEDED as needed for Nausea April 24, 2020 1:00am August 01, 2020 3:46pm tamsulosin hydrochloride 0.4 mg oral capsule (13 sources) alpha-Adrenergic Armaan Start: 05-15-2022 End: 08-05-2023 take 1 capsule by mouth once daily Tamsulosin 0.4 mg capsule Discontinued 0.4 mg PO DAILY 14 0 May 15, 2022 12:00am August 05, 2023 9:35am Start: 04-24-2020 End: 08-01-2020 take 1 capsule by mouth once daily Tamsulosin 0.4 MG capsule Discontinued 0.4 mg PO DAILY 7 0 April 24, 2020 1:00am August 01, 2020 3:47pm terbinafine 250 mg oral tablet (20 sources) Allylamine Antifungal Start: 05-12-2018 End: 07-30-2019 take 1 tablet by mouth once daily Terbinafine Hcl 250 mg tablet Discontinued 250 mg PO DAILY May 12, 2018 12:00am July 30, 2019 9:24am End: 01-22-2011 LAMISIL TABS TERB INAFINE HCL TABS [id number] Nataly Hawkins RN LAMISIL TABS TER BINAFINE HCL TABS [id number] Vasquez Funez DO End: 01-22-2011 LAMISIL TABS TERB INAFINE HCL TABS [id number] Nataly Hawkins RN vitamin b 12 0.5 mg oral tablet (8 sources) Vitamin B12 Start: 05-18-2010 take 1 tablet by mouth once daily VITAMIN B-12 500 MCG TABS One tablet by mouth daily CYANOCOBALAMIN [id number] Radha S Zachery RN Problems Active Problems Problem Classification Problem Date Documented Da te Episodic/Chronic Abdominal hernia (6 sources) Right inguinal hernia ; Translations: [Unilateral inguinal hernia, without obstruction or gangrene, not specified as recurrent] 05-14-2022 Episodic Calculus of urinary tract (8 sources) Kidney stone; Translations: [Calculus of kidney] 04-25-2021 Episodic Cardiac dysrhythmias (2 sources) Atrial fibrillation; Translations: [Unspecified atrial fibrillation] 08-28-2023 Chronic Coronary atherosclerosis and other heart disease (20 sources) Coronary atherosclerosis; Translations: [Coronary arteriosclerosis] Onset: 05-18-2010 Resolved: 04-06-2015 04-06-2015 Chronic Coronary atherosclerosis and other heart disease (11 sources) Presence of aortocoronary bypass graft; Translations: [Aortocoronary bypass status] Onset: 12-20-1998 10-26-2010 Episodic Disorders of lipid metabolism (20 sources) Hyperlipidemia; Translations: [Hyperlipidemia, unspecified] Onset: 12-25-2004 05-18-2010 Chronic Essential hypertension (2 sources) Essential hypertension; Translations: [Essential (primary) hypertension] Onset: 04-04-2005 07-01-2017 Chronic Hyperplasia of prostate (10 sources) Large prostate ; Translations: [Benign prostatic hyperplasia without lower urinary tract symptoms] Onset: 04-18-2005 04-25-2021 Chronic Miscellaneous mental health disorders (2 sources) Psychosexual dysfunction; Translations: [Unspecified sexual dysfunction not due to a substance or known physiological condition] Onset: 01-20-2008 01-23-2018 Chronic Other injuries and conditions due to external causes (7 sources) Closed injury of head; Translations: [Unspecified injury of head, initial encounter] 10-15-2021 Episodic Other lower respiratory disease (2 sources) Cough; Translations: [Acute cough] 03-20-2024 Episodic Other male genital disorders (2 sources) Secondary erectile dysfunction; Translations: [Male erectile dysfunction, unspecified] Onset: 01-23-2018 01-23-2018 Chronic Superficial injury; contusion (7 sources) Hematoma of face; Translations: [Contusion of other part of head, initial encounter] 10-15-2021 Episodic Unclassified (10 sources) Long-term drug therapy; Translations: [Long-term (current) use of other medications] Onset: 05-18-2010 Resolved: 04-06-2015 04-06-2015 Unclassified (1 source) Acute cough; Translations: [Acute cough] Onset: 03-20-2024 Past or Other Problems Problem Classification Problem Date Documented Da te Episodic/Chronic Appendicitis and other appendiceal conditions (2 sources) Acute appendicitis with generalized peritonitis; Translations: [Acute appendicitis with generalized peritonitis] Onset: 09-24-2010 09-24-2010 Episodic Malaise and fatigue (8 sources) Fatigue; Translations: [Other fatigue] Onset: 06-18-2016 06-18-2016 Episodic Mycoses (8 sources) Tinea unguium; Translations: [Tinea unguium] 06-14-2010 Episodic Other aftercare (20 sources) Long-term (current) use of other medications; Translations: [Other mcfp (current) drug therapy] Onset: 05-18-2010 Resolved: 04-06-2015 01-17-2012 Episodic Other circulatory disease (8 sources) Carotid bruit; Translations: [Other specified symptoms and signs involving the circulatory and respiratory systems] Onset: 05-21-2010 05-21-2010 Episodic Other connective tissue disease (2 sources) Adhesive capsulitis of shoulder; Translations: [Adhesive capsulitis of unspecified shoulder] Onset: 09-06-2008 09-06-2008 Episodic Other lower respiratory disease (8 sources) Dyspnea on exertion; Translations: [Other forms of dyspnea] Onset: 06-18-2016 06-18-2016 Episodic Other non-traumatic joint disorders (2 sources) Shoulder joint pain; Translations: [Pain in unspecified shoulder] Onset: 09-06-2008 09-06-2008 Episodic Other nutritional; endocrine; and metabolic disorders (8 sources) Body mass index (BMI) 25.0-25.9, adult; Translations: [Body mass index (BMI) 25.0-25.9, adult] Onset: 04-05-2014 04-05-2014 Episodic Other screening for suspected conditions (not mental disorders or infectious disease) (1 source) Elevated prostate specific antigen [PSA]; Translations: [Elevated prostate specific antigen [PSA]] Onset: 05-17-2024 Episodic Residual codes; unclassified (4 sources) FH: Hypertension; Translations: [Family history of ischemic heart disease and other diseases of the circulatory system] Resolved: 04-06-2015 04-05-2014 Episodic Unclassified (20 sources) Family history of ischemic heart disease and other diseases of the circulatory system; Translations: [FH: Hypertension] Resolved: 04-06-2015 04-05-2014 Episodic Results Test Name Value Interpretation Reference Range Facility Absolute lymphocyte countOrd ered By: Fco Durand on 09-16-2024 Lymphocytes Auto (Unsp spec) [#/Vol] 1.45 10*3/uL 0.83-4.51 [facility] Absolute neutrophil countOrd ered By: Fco Kizzy on 09-16-2024 Neutrophils (Bld) [#/Vol] 3.7 10*3/uL 2.0-7.7 [facility] Anion gap in Serum or Plasma Ordered By: [address] [facility] on 09-16-2024 Anion gap [Moles/Vol] 10 mmol/L 5-15 [facility] Automated lymphocyte count a s percentage of total leukocytesOrdered By: [address] [facility] on 09-16-2024 Lymphocytes/100 WBC Auto (Unsp spec) 23.8 % 19-41 [facility] BUN/creatinine ratioOrdered By: [address] [facility] on 09-16-2024 Urea nitrogen/Creatinine [Mass ratio] 20.1 mg/mg High 10-20 [facility] Basic Metabolic Profile (BMP )on 09-16-2024 BUN/CRE 20.1 RATIO High 10-20 [facility] Comment on above: Performed By: #### L 501.9520, L100.0100, L500.2500, L500.3400, L500.4100 #### [facility] [address] [place], [address] Calcium [Mass/Vol] 9.6 mg/dL Normal 7.6-11.0 [facility] Comment on above: Performed By: #### L [id number], L100.0100, L500.2500, L500.3400, L500.4100 #### [facility] [address] [place], [address] Chloride [Moles/Vol] 104 mmol/L Normal 98-108 [facility] Comment on above: Performed By: #### L [id number], L100.0100, L500.2500, L500.3400, L500.4100 #### [facility] [address] [place], [address] CO2 [Moles/Vol] 25.0 mmol/L Normal 21.0-32.0 [facility] Comment on above: Performed By: #### L [id number], L100.0100, L500.2500, L500.3400, L500.4100 #### [facility] [address] [place], [address] Creatinine [Mass/Vol] 1.00 mg/dL Normal 0.70-1.20 [facility] Comment on above: Performed By: #### L [id number], L100.0100, L500.2500, L500.3400, L500.4100 #### [facility] [address] [place], [address] GAP 10 Normal 5-15 [facility] Comment on above: Performed By: #### L [id number], L100.0100, L500.2500, L500.3400, L500.4100 #### [facility] [address] [place], [address] GFR/1.73 sq M.predicted among non-blacks MDRD (S/P/Bld) [Vol rate/Area] 76 mL/min/{1.73_m2} Normal >60 [facility] Comment on above: Result Comment: mL/m in/1.73m2 CKD-EPI Creatinine Equation (2020) Performed By: #### L 501.9520, L100.0100, L500.2500, L500.3400, L500.4100 #### [facility] [address] [place], [address] Glucose [Mass/Vol] 93 mg/dL Normal 70-99 [facility] Comment on above: Performed By: #### L 501.9520, L100.0100, L500.2500, L500.3400, L500.4100 #### [facility] [address] [place], [address] Potassium [Moles/Vol] 4.7 mmol/L Normal 3.3-5.1 [facility] Comment on above: Performed By: #### L 501.9520, L100.0100, L500.2500, L500.3400, L500.4100 #### [facility] [address] [place], [address] Sodium [Moles/Vol] 139 mmol/L Normal 133-145 [facility] Comment on above: Performed By: #### L 501.9520, L100.0100, L500.2500, L500.3400, L500.4100 #### [facility] [address] [place], [address] Urea nitrogen [Mass/Vol] 20 mg/dL High 4-19 [facility] Comment on above: Performed By: #### L 501.9520, L100.0100, L500.2500, L500.3400, L500.4100 #### [facility] [address] [place], [address] Basophil percentageOrdered B y: [address] Kizzy on 09-16-2024 Basophils/100 WBC (Bld) 0.3 % 0-1 [facility] Bilirubin directOrdered By: [address] Kizzy on 09-16-2024 Bilirubin.direct [Mass/Vol] 0.46 mg/dL High 0.00-0.30 [facility] Bilirubin, totalOrdered By: Fco Kizzy on 09-16-2024 Bilirubin [Mass/Vol] 1.14 mg/dL 0.00-1.30 [facility] CBC W/Diff, Automatedon 07-3 Absolute Lymph 1.45 X10 3/uL Normal 0.83-4.51 [facility] Comment on above: Performed By: #### L 501.9520, L100.0100, L500.2500, L500.3400, L500.4100 #### [facility] [address] [place], [address] Absolute Neut 3.7 X10 3/uL Normal 2.0-7.7 [facility] Comment on above: Performed By: #### L 501.9520, L100.0100, L500.2500, L500.3400, L500.4100 #### [facility] [address] [place], [address] Basophils/100 WBC (Bld) 0.3 % Normal 0-1 [facility] Comment on above: Performed By: #### L 501.9520, L100.0100, L500.2500, L500.3400, L500.4100 #### [facility] [address] [place], [address] Eosinophils/100 WBC (Bld) 4.1 % Normal 0-5 [facility] Comment on above: Performed By: #### L 501.9520, L100.0100, L500.2500, L500.3400, L500.4100 #### [facility] [address] [place], [address] Erythrocyte distribution width (RBC) [Ratio] 12.1 % Normal 11.6-14.6 [facility] Comment on above: Performed By: #### L 501.9520, L100.0100, L500.2500, L500.3400, L500.4100 #### [facility] [address] [place], [address] Hematocrit (Bld) [Volume fraction] 43.7 % Normal 40-54 [facility] Comment on above: Performed By: #### L 501.9520, L100.0100, L500.2500, L500.3400, L500.4100 #### [facility] [address] [place], [address] Hemoglobin (Bld) [Mass/Vol] 14.3 g/dL Normal 13.0-16.5 [facility] Comment on above: Performed By: #### L 501.9520, L100.0100, L500.2500, L500.3400, L500.4100 #### [facility] [address] [place], [address] IG% 0.500 Normal 0.0-0.9 [facility] Comment on above: Result Comment: IG% - Immature Granulocytes (promyelocytes, myelocytes and metamyelocytes) > 1% indicates that a LEFT SHIFT is Present. Performed By: #### L 501.9520, L100.0100, L500.2500, L500.3400, L500.4100 #### [facility] [address] [place], [address] Lymphocytes/100 WBC (Bld) 23.8 % Normal 19-41 [facility] Comment on above: Performed By: #### L 501.9520, L100.0100, L500.2500, L500.3400, L500.4100 #### [facility] [address] [place], [address] MCH (RBC) [Entitic mass] 32.8 pg High 27.0-32.0 [facility] Comment on above: Performed By: #### L 501.9520, L100.0100, L500.2500, L500.3400, L500.4100 #### [facility] [address] [place], [address] MCHC (RBC) [Mass/Vol] 32.7 g/dL Normal 32-36 [facility] Comment on above: Performed By: #### L 501.9520, L100.0100, L500.2500, L500.3400, L500.4100 #### [facility] [address] [place], [address] MCV (RBC) [Entitic vol] 100.2 fL High 80-94 [facility] Comment on above: Performed By: #### L 501.9520, L100.0100, L500.2500, L500.3400, L500.4100 #### [facility] [address] [place], [address] Monocytes/100 WBC (Bld) 10.9 % High 0-10 [facility] Comment on above: Performed By: #### L 501.9520, L100.0100, L500.2500, L500.3400, L500.4100 #### [facility] [address] [place], [address] Neutrophils/100 WBC (Bld) 60.4 % Normal 47-70 [facility] Comment on above: Performed By: #### L 501.9520, L100.0100, L500.2500, L500.3400, L500.4100 #### [facility] [address] [place], [address] Nucleated RBC (Bld) [#/Vol] 0 10*3/uL Normal 0-5 [facility] Comment on above: Performed By: #### L 501.9520, L100.0100, L500.2500, L500.3400, L500.4100 #### [facility] [address] [place], [address] Platelet mean volume (Bld) [Entitic vol] 9.0 fL Normal 6.2-12.0 [facility] Comment on above: Performed By: #### L 501.9520, L100.0100, L500.2500, L500.3400, L500.4100 #### [facility] [address] [place], [address] Platelets (Bld) [#/Vol] 170 10*3/uL Normal 150-450 [facility] Comment on above: Performed By: #### L 501.9520, L100.0100, L500.2500, L500.3400, L500.4100 #### [facility] [address] [place], [address] RBC (Bld) [#/Vol] 4.36 10*6/uL Low 4.6-6.2 [facility] Comment on above: Performed By: #### L 501.9520, L100.0100, L500.2500, L500.3400, L500.4100 #### [facility] [address] [place], [address] RDW SD 45.1 fl High 35.1-43.9 [facility] Comment on above: Performed By: #### L 501.9520, L100.0100, L500.2500, L500.3400, L500.4100 #### [facility] [address] [place], [address] WBC (Bld) [#/Vol] 6.1 10*3/uL Normal 4.4-11.0 [facility] Comment on above: Performed By: #### L 501.9520, L100.0100, L500.2500, L500.3400, L500.4100 #### [facility] [address] [place], [address] Calculated very low density lipoprotein (VLDL) cholesterol measurementOrdered By: Fco Durand on 09-16-2024 Calculated very low density lipoprotein (VLDL) cholesterol measurement 11 mg/dL 5-40 [facility] Carbon dioxide, total [Moles /volume] in Central venous bloodOrdered By: Fco Durand on 09-16-2024 CO2 [Moles/Vol] 25.0 mmol/L 21.0-32.0 [facility] Cardiology Visit Reporton Cardiology Visit Report [facility] [address] [place] [address] OFFICE VISIT Date of Service: 09/16/24 MR#: [id number] Acct: [id number] Name: LES WANG Rep #: [id number] : 1945 Provider: Dr. Fco Durand MD Age/Sex: 79/M Location: [facility] [place] Status: Signed HPI HPI History of Present Illness Details: LES WANG, is a 79 y/o pleasant gentleman with a history of coronary artery disease status post coronary bypass surgery ???4 who returns for follow-up visit. He denies any chest pain or shortness of breath or paroxysmal nocturnal dyspnea pedal edema he has had no neck arm or jaw discomfort suggest angina no dizziness no diaphoresis no near syncope or syncope. Is doing quite well. He tells me that he recently had hernia surgery. He did have cardiac tests in May 2021 with an echocardiogram demonstrating preserved ejection fraction of 60% mild mitral regurgitation and a stress test demonstrating no evidence of ischemia at a high workload. 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 Accompanied by: Self Is patient in pain?: No Allergies lisinopril Adverse Reaction (Intermediate, Verified 09/16/24 09:15) Dry Cough Medications ???Medication ???Instructions ???Recorded ???Confirmed ???Type multivitamin 1 tab PO QDAY 05/05/17 09/16/24 Hi story sildenafil 50 mg tablet (Viagra) 50 mg PO QDAY PRN other 05/05/17 0 09/16/24 History vitamin B12 500 mcg-folic acid 400 1 tab PO QDAY 05/05/17 09/16/24 History mcg tablet aspirin 81 mg tablet,delayed 81 mg PO DAILY 07/30/19 09/16/24 H istory release lorazepam 1 mg tablet 0.25 mg PO DAILY 07/30/19 09/16/24 History pyridoxine (vitamin B6) 50 mg 100 mg PO QDAY 07/30/19 09/16/24 H istory capsule (Vitamin B-6) collagen PO 08/05/23 09/16/24 History atorvastatin 10 mg tablet 10 mg PO DAILY #90 TABLETS 4 09/16/24 Rx losartan 25 mg tablet 25 mg PO DAILY #90 tabs 03/08/24 0 09/16/24 Rx Ejection fraction %: 60 Have you fallen in the past year?: No PFSH Medical History Wears glasses High cholesterol Prostate disease Non-smoker History of echocardiogram History of stress test History of CHF (congestive heart failure) Kidney stones Enlarged prostate Renal calculi History of kidney stones Hyperlipidemia 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 Brother , age 39 from HI CAD (coronary artery disease) Myocardial infarction Sudden cardiac Brother , Age 70 heart related, hx CABG CAD (coronary artery disease) history of CABG Social History Smoking Status: Never smoker alcohol intake: current alcohol intake frequency: a few times a week Alcohol type: wine substance use type: does not use caffeine: Yes Type: carbonated beverages and coffee what type of physical activity do you participate in: walking frequency: 3-4 times per week duration: 45-60 minutes/day seatbelt use: always do you feel safe at home: Yes ROS Const Const: Negative for fatigue or weakness Eyes Eyes: Negative for change in vision ENT ENT: Negative for dizziness or balance problems Cardio Chest Pain: No Palpitations: No Edema: Bilateral (occ) Resp Respiratory: Negative for SOB with activity, SOB at rest or SOB orthopnea SOB lying down GI GI: Negative nausea or heartburn Musc Musc: Negative for balance problems Neuro Neuro: Negative for dizziness, lightheadedness, near syncope, syncope or weakness Endo Endo: Negative for fatigue Cardiology Exam Const Appearance: cooperative, healthy appearing, no acute distress, well developed and well groomed Nutritional Appearance: average body habitus and well nourished Orientation: alert, awake and oriented x3 Head Head: normal to inspection, normocephalic and atraumatic Ears: hearing grossly normal bilaterally and external ears normal (more content not included)... Normal [facility] Chloride assayOrdered By: Errol Durand on 09-16-2024 Chloride [Moles/Vol] 104 mmol/L 98-108 [facility] Eosinophil percentageOrdered By: Fco Durand on 09-16-2024 Eosinophils/100 WBC (Bld) 4.1 % 0-5 [facility] Erythrocyte distribution wid th ratioOrdered By: Fco Durand on 09-16-2024 Erythrocyte distribution width (RBC) [Ratio] 12.1 % 11.6-14.6 [facility] Erythrocyte distribution wid th standard deviationOrdered By: Fco Durand on 09-16-2024 Erythrocyte distribution width (RBC) [Ratio] 45.1 fl High 35.1-43.9 [facility] Glomerular filtration rate ( GFR) estimation/1.73 sq m using serum, plasma, or whole bOrdered By: Fco Durand on 09-16-2024 GFR/1.73 sq M.predicted among non-blacks MDRD (S/P/Bld) [Vol rate/Area] 76 mL/min/{1.73_m2} >60 [facility] Comment on above: mL/min/1.73m2 CKD-EP I Creatinine Equation (2020) Hematocrit Auto (Bld) [Volum e fraction]Ordered By: Fco Durand on 09-16-2024 Hematocrit (Bld) [Volume fraction] 43.7 % 40-54 [facility] Hemoglobin measurementOrdere d By: Fco Durand on 09-16-2024 Hemoglobin (Bld) [Mass/Vol] 14.3 g/dL 13.0-16.5 [facility] Immature granulocytes/100 WB C Auto (Bld)Ordered By: Fco Durand on 09-16-2024 Immature granulocytes/100 WBC (Bld) 0.500 % 0.0-0.9 [facility] Comment on above: IG% - Immature Granu locytes (promyelocytes, myelocytes and metamyelocytes) > 1% indicates that a LEFT SHIFT is Present. LDL calc ser/plasOrdered By: Fco Durand on 09-16-2024 Cholesterol in LDL [Mass/Vol] 52 mg/dL [facility] Comment on above: Lxcaoelfmt=136-537 m g/dL & Higher Jdse=455 mg/dL or greaterFriedwald Equation for LDL-C Laboratory - Chemistry and C hemistry - challengeOrdered By: Fco [facility] on 09-16-2024 AST [Catalytic activity/Vol] 23 U/L <38 [facility] Lipid Profileon 09-16-2024 CHOL:HDL 1.98 Normal [facility] Comment on above: Performed By: #### L 501.9520, L100.0100, L500.2500, L500.3400, L500.4100 #### [facility] [address] [place], [address] Cholesterol [Mass/Vol] 128 mg/dL Normal <=200 [facility] Comment on above: Result Comment: Chol esterol level, Desirable <200 mg/dL Borderline high cholesterol 200-239 mg/dL High cholesterol >=240 mg/dL Recommendations of the NCEP Adult Treatment Panel for the following risk-cutoff thresholds for the [place] population. Performed By: #### L [id number], L100.0100, L500.2500, L500.3400, L500.4100 #### [facility] [address] [place], [address] Cholesterol in HDL [Mass/Vol] 65 mg/dL Normal [facility] Comment on above: Result Comment: Yuli onsilvano Cholesterol Education Program (NCEP) guidelines: <40 mg/dL: Low HDL-cholesterol (major risk factor for CHD) >= 60 mg/dL: High HDL-cholesterol (negative risk factor for CHD) HDL-cholesterol is affected by a number of factors, e.g. smoking, exercise, hormones, sex and age. Performed By: #### L [id number], L100.0100, L500.2500, L500.3400, L500.4100 #### [facility] [address] [place], [address] Cholesterol in LDL [Mass/Vol] 52 mg/dL Normal [facility] Comment on above: Result Comment: Bord wxdwok=994-695 mg/dL Higher Zeza=358 mg/dL or greater Friedwald Equation for LDL-C Performed By: #### L [id number], L100.0100, L500.2500, L500.3400, L500.4100 #### [facility] [address] [place], [address] Cholesterol in VLDL [Mass/Vol] 11 mg/dL Normal 5-40 [facility] Comment on above: Performed By: #### L [id number], L100.0100, L500.2500, L500.3400, L500.4100 #### [facility] [address] [place], [address] Triglyceride [Mass/Vol] 56 mg/dL Normal [facility] Comment on above: Result Comment: The drugs N-Acetylcysteine and Metamizole may falsely depress this assay. Normal range: <150 mg/dL Borderline High: 150-199 mg/dL High: 200-499 mg/dL Very High: >500 mg/dL Performed By: #### L [id number], L100.0100, L500.2500, L500.3400, L500.4100 #### [facility] [address] [place], [address] Liver Profileon 09-16-2024 Albumin [Mass/Vol] 4.2 g/dL Normal 3.4-4.8 [facility] Comment on above: Performed By: #### L [id number], L100.0100, L500.2500, L500.3400, L500.4100 #### [facility] [address] [place], [address] ALK PHOS 71 U/L Normal 40-129 [facility] Comment on above: Performed By: #### L [id number], L100.0100, L500.2500, L500.3400, L500.4100 #### [facility] [address] [place], [address] ALT [Catalytic activity/Vol] 23 U/L Normal <=46 [facility] Comment on above: Performed By: #### L [id number], L100.0100, L500.2500, L500.3400, L500.4100 #### [facility] [address] [place], [address] AST [Catalytic activity/Vol] 23 U/L Normal <=37 [facility] Comment on above: Performed By: #### L [id number], L100.0100, L500.2500, L500.3400, L500.4100 #### [facility] [address] [place], [address] Bilirubin [Mass/Vol] 1.14 mg/dL Normal 0.00-1.30 [facility] Comment on above: Performed By: #### L 501.9520, L100.0100, L500.2500, L500.3400, L500.4100 #### [facility] [address] [place], [address] Bilirubin.direct [Mass/Vol] 0.46 mg/dL High 0.00-0.30 [facility] Comment on above: Performed By: #### L [id number], L100.0100, L500.2500, L500.3400, L500.4100 #### [facility] [address] [place], [address] Globulin (S) [Mass/Vol] 2.1 g/dL Low 2.2-4.2 [facility] Comment on above: Performed By: #### L [id number], L100.0100, L500.2500, L500.3400, L500.4100 #### [facility] [address] [place], [address] T PROT 6.3 g/dL Normal 5.9-8.4 [facility] Comment on above: Performed By: #### L [id number], L100.0100, L500.2500, L500.3400, L500.4100 #### [facility] [address] [place], [address] MCV (mean corpuscular volume ) determinationOrdered By: Pike [address] Kizzy on 09-16-2024 MCV (RBC) [Entitic vol] 100.2 fL High 80-94 [facility] Mean corpuscular hemoglobin (MCH) determinationOrdered By: Fco Kizzy on 09-16-2024 MCH (RBC) [Entitic mass] 32.8 pg High 27.0-32.0 [facility] Mean corpuscular hemoglobin concentration (MCHC) determinationOrdered By: [address] Kizzy on 09-16-2024 MCHC (RBC) [Mass/Vol] 32.7 g/dL 32-36 [facility] Mean platelet volume determi nationOrdered By: [address] Kizzy on 09-16-2024 Platelet mean volume (Bld) [Entitic vol] 9.0 fL 6.2-12.0 [facility] Monocyte percentageOrdered B y: Fco Kizzy on 09-16-2024 Monocytes/100 WBC (Bld) 10.9 % High 0-10 [facility] Neutrophil percentageOrdered By: Fco Kizzy on 09-16-2024 Neutrophils/100 WBC (Bld) 60.4 % 47-70 [facility] Nucleated red blood cell per centageOrdered By: Fco Kizzy on 09-16-2024 Nucleated RBC/100 WBC (Bld) [Ratio] 0 % 0-5 [facility] Platelet countOrdered By: Cy ril Kizzy on 09-16-2024 Platelets (Bld) [#/Vol] 170 10*3/uL 150-450 [facility] Potassium measurement (mass/ volume)Ordered By: Fco Durand on 09-16-2024 Potassium (Unsp spec) [Mass/Vol] 4.7 mmol/L 3.3-5.1 [facility] RBC Auto (Bld) [#/Vol]Ordere d By: Fco Durand on 09-16-2024 RBC (Bld) [#/Vol] 4.36 10*6/uL Low 4.6-6.2 [facility] Screening total cholesterol/ high density lipoprotein (HDL) cholesterol ratioOrdered By: Fco Durand on 09-16-2024 Cholesterol.total/Choles terol in HDL [Mass ratio] 1.98 {ratio} [facility] Serum creatinine measurement (mass/volume)Ordered By: Fco Durand on 09-16-2024 Creatinine [Mass/Vol] 1.00 mg/dL 0.70-1.20 [facility] Serum globulin measurementOr dered By: Fco Durand on 09-16-2024 Globulin (S) [Mass/Vol] 2.1 g/dL Low 2.2-4.2 [facility] Serum glucose measurement (m ass/volume)Ordered By: Fco Durand on 09-16-2024 Glucose [Mass/Vol] 93 mg/dL 70-99 [facility] Serum or plasma alanine ma otransferase (ALT) measurementOrdered By: Fco Durand on 09-16-2024 ALT [Catalytic activity/Vol] 23 U/L <47 [facility] Serum or plasma albumin melani urement (mass/volume)Ordered By: Fco Durand on 09-16-2024 Albumin [Mass/Vol] 4.2 g/dL 3.4-4.8 [facility] Serum or plasma alkaline yara sphatase measurementOrdered By: Fco Durand on 09-16-2024 ALP [Catalytic activity/Vol] 71 U/L 40-129 [facility] Serum or plasma calcium melani urement (mass/volume)Ordered By: Fco Durand on 09-16-2024 Calcium [Mass/Vol] 9.6 mg/dL 7.6-11.0 [facility] Serum or plasma cholesterol in HDL measurement (mass/volume)Ordered By: Fco Durand on 09-16-2024 Cholesterol in HDL [Mass/Vol] 65 mg/dL >40 [facility] Comment on above: National Cholesterol Education Program (NCEP) guidelines:<40 mg/dL: Low HDL-cholesterol (major risk factor for CHD)>= 60 mg/dL: High HDL-cholesterol (negative risk factor for CHD)HDL-cholesterol is affected by a number of factors, e.g. smoking, exercise, hormones, sex and age. Serum or plasma cholesterol measurement (mass/volume)Ordered By: Fco Durand on 09-16-2024 Cholesterol [Mass/Vol] 128 mg/dL <201 [facility] Comment on above: Cholesterol level, D esirable <200 mg/dLBorderline high cholesterol 200-239 mg/dLHigh cholesterol >=240 mg/dLRecommendations of the NCEP Adult Treatment Panel for the following risk-cutoff thresholds for the [place] population. Serum or plasma urea nitroge n measurement (mass/volume)Ordered By: Fco Durand on 09-16-2024 Urea nitrogen [Mass/Vol] 20 mg/dL High 4-19 [facility] Sodium levelOrdered By: Buffy Durand on 09-16-2024 Sodium [Moles/Vol] 139 mmol/L 133-145 [facility] TSH DL <= 0.005 mIU/L QnOrde red By: Fco Durand on 09-16-2024 TSH Qn 0.890 uIU/mL 0.300-4.200 [facility] Thyroid Stim Hormone (TSH)on 09-16-2024 TSH 0.890 uIU/mL Normal 0.300-4.200 [facility] Comment on above: Performed By: #### L [id number], L100.0100, L500.2500, L500.3400, L500.4100 #### [facility] [address] [place], [place], [id number] Total proteinOrdered By: Amadeo Durand on 07-31-2025 Protein [Mass/Vol] 6.3 g/dL 5.9-8.4 [facility] Triglycerides measurementOrd ered By: Fco Durand on 09-16-2024 Triglyceride [Mass/Vol] 56 mg/dL <199 [facility] Comment on above: The drugs N-Acetylcy steine and Metamizole may falsely depress this assay. Normal range: <150 mg/dLBorderline High: 150-199 mg/dLHigh: 200-499 mg/dLVery High: >500 mg/dL White blood cell (WBC) count Ordered By: Fco Durand on 09-16-2024 WBC (Bld) [#/Vol] 6.1 10*3/uL 4.4-11.0 [facility] Lipid Profileon 05-11-2024 CHOL:HDL 2.24 Normal [facility] Comment on above: Order Comment: ORDERED LIVER AND LIPID DR. DUBOSE ORDERED PSAD Performed By: #### L [id number], L500.3400, L500.4100 #### [facility] [address] [facility] [address] Cholesterol [Mass/Vol] 132 mg/dL Normal <=200 [facility] Comment on above: Order Comment: ORDERED LIVER AND LIPID DR. DUBOSE ORDERED PSAD Result Comment: Chol esterol level, Desirable <200 mg/dL Borderline high cholesterol 200-239 mg/dL High cholesterol >=240 mg/dL Recommendations of the NCEP Adult Treatment Panel for the following risk-cutoff thresholds for the [place] population. Performed By: #### L 501.9940, L500.3400, L500.4100 #### [facility] [address] [place], [address] Cholesterol in HDL [Mass/Vol] 59 mg/dL Normal [facility] Comment on above: Order Comment: ORDERED LIVER AND LIPID DR. DUBOSE ORDERED PSAD Result Comment: Yuli onal Cholesterol Education Program (NCEP) guidelines: <40 mg/dL: Low HDL-cholesterol (major risk factor for CHD) >= 60 mg/dL: High HDL-cholesterol (negative risk factor for CHD) HDL-cholesterol is affected by a number of factors, e.g. smoking, exercise, hormones, sex and age. Performed By: #### L 501.9940, L500.3400, L500.4100 #### [facility] [address] [place], [address] Cholesterol in LDL [Mass/Vol] 57 mg/dL Normal [facility] Comment on above: Order Comment: ORDERED LIVER AND LIPID DR. DUBOSE ORDERED PSAD Result Comment: Bord mftdkl=205-158 mg/dL Higher Qdlu=301 mg/dL or greater Performed By: #### L [id number], L500.3400, L500.4100 #### [facility] [address] [place], [address] Cholesterol in VLDL [Mass/Vol] 16 mg/dL Normal 5-40 [facility] Comment on above: Order Comment: ORDERED LIVER AND LIPID DR. DUBOSE ORDERED PSAD Performed By: #### L [id number], L500.3400, L500.4100 #### [facility] [address] [place], [address] Triglyceride [Mass/Vol] 79 mg/dL Normal [facility] Comment on above: Order Comment: ORDERED LIVER AND LIPID DR. DUBOSE ORDERED PSAD Result Comment: The drugs N-Acetylcysteine and Metamizole may falsely depress this assay. Normal range: <150 mg/dL Borderline High: 150-199 mg/dL High: 200-499 mg/dL Very High: >500 mg/dL Performed By: #### L 501.9940, L500.3400, L500.4100 #### [facility] [address] [place], [address] Liver Profileon 05-11-2024 Albumin [Mass/Vol] 4.1 g/dL Normal 3.4-4.8 [facility] Comment on above: Order Comment: ORDERED LIVER AND LIPID DR. DUBOSE ORDERED PSAD Performed By: #### L 501.9940, L500.3400, L500.4100 #### [facility] [address] [place], [address] ALK PHOS 63 U/L Normal 40-129 [facility] Comment on above: Order Comment: ORDERED LIVER AND LIPID DR. DUBOSE ORDERED PSAD Performed By: #### L [id number], L500.3400, L500.4100 #### [facility] [address] [place], [address] ALT [Catalytic activity/Vol] 16 U/L Normal <=46 [facility] Comment on above: Order Comment: ORDERED LIVER AND LIPID DR. DUBOSE ORDERED PSAD Performed By: #### L [id number], L500.3400, L500.4100 #### [facility] [address] [place], [address] AST [Catalytic activity/Vol] 15 U/L Normal <=37 [facility] Comment on above: Order Comment: ORDERED LIVER AND LIPID DR. DUBOSE ORDERED PSAD Performed By: #### L [id number], L500.3400, L500.4100 #### [facility] [address] [place], [address] Bilirubin [Mass/Vol] 1.03 mg/dL Normal 0.00-1.30 [facility] Comment on above: Order Comment: ORDERED LIVER AND LIPID DR. DUBOSE ORDERED PSAD Performed By: #### L [id number], L500.3400, L500.4100 #### [facility] [address] [place], [address] Bilirubin.direct [Mass/Vol] 0.44 mg/dL High 0.00-0.30 [facility] Comment on above: Order Comment: ORDERED LIVER AND LIPID DR. DUBOSE ORDERED PSAD Performed By: #### L 501.9940, L500.3400, L500.4100 #### [facility] [address] [place], [address] Globulin (S) [Mass/Vol] 2.2 g/dL Normal 2.2-4.2 [facility] Comment on above: Order Comment: ORDERED LIVER AND LIPID DR. DUBOSE ORDERED PSAD Performed By: #### L 501.9940, L500.3400, L500.4100 #### [facility] [address] [place], [address] T PROT 6.3 g/dL Normal 5.9-8.4 [facility] Comment on above: Order Comment: ORDERED LIVER AND LIPID DR. DUBOSE ORDERED PSAD Performed By: #### L 501.9940, L500.3400, L500.4100 #### [facility] [address] [place], [address] Bilirubin directOrdered By: Fco Durand on 05-10-2024 Bilirubin.direct [Mass/Vol] 0.44 mg/dL High 0.00-0.30 [facility] Bilirubin, totalOrdered By: Fco Durand on 05-10-2024 Bilirubin [Mass/Vol] 1.03 mg/dL 0.00-1.30 [facility] Calculated very low density lipoprotein (VLDL) cholesterol measurementOrdered By: Fco Durand on 05-10-2024 VLDL Cholesterol 16 mg/dL 5-40 [facility] Diagnostic total prostate sp ecific antigen (PSA) measurementOrdered By: Fco Durand on 05-10-2024 Prostate Specific Antigen Total 3.18 ng/mL 0.00-4.00 [facility] Comment on above: This test was perfor med using the [employer] tPSA method. Measured values of a patient sample can vary depending on the testing procedure used. PSA values determined on patient samples by different testing procedures cannot be used interchangeably. If there is a change in PSA assays while monitoring therapy, sequential testing should be performed to confirm baseline values. LDL calc ser/plasOrdered By: Fco Durand on 05-10-2024 LDL Cholesterol, Calculated 57 mg/dL [facility] Comment on above: Geqvapmwaj=287-270 m g/dL & Higher Exer=539 mg/dL or greater Laboratory - Chemistry and C hemistry - challengeOrdered By: Fco Durand on 05-10-2024 AST [Catalytic activity/Vol] 15 U/L <38 [facility] PSA,Total- Diagnosticon 04-18 PSA, DIAGNOSTIC 3.18 ng/mL Normal 0.00-4.00 [facility] Comment on above: Order Comment: ORDERED LIVER AND LIPID DR. DUBOSE ORDERED PSAD Result Comment: This test was performed using the [employer] tPSA method. Measured values of a patient??sample can vary depending on the testing procedure used. PSA values determined on patient samples by different testing procedures cannot be used interchangeably. If there is a change in PSA assays while monitoring therapy, sequential testing should be performed to confirm baseline values. Performed By: #### L 501.9940, L500.3400, L500.4100 #### [facility] [place], [address] Screening total cholesterol/ high density lipoprotein (HDL) cholesterol ratioOrdered By: Fco Durand on 05-10-2024 Cholesterol.total/Choles terol in HDL [Mass ratio] 2.24 {ratio} [facility] Serum globulin measurementOr dered By: Fco Durand on 05-10-2024 Globulin (S) [Mass/Vol] 2.2 g/dL 2.2-4.2 [facility] Serum or plasma alanine ma otransferase (ALT) measurementOrdered By: Fco Durand on 05-10-2024 ALT [Catalytic activity/Vol] 16 U/L <47 [facility] Serum or plasma albumin melani urement (mass/volume)Ordered By: Fco Durand on 05-10-2024 Albumin [Mass/Vol] 4.1 g/dL 3.4-4.8 [facility] Serum or plasma alkaline yara sphatase measurementOrdered By: Fco Durand on 05-10-2024 ALP [Catalytic activity/Vol] 63 U/L 40-129 [facility] Serum or plasma cholesterol in HDL measurement (mass/volume)Ordered By: Fco Durand on 05-10-2024 Cholesterol in HDL [Mass/Vol] 59 mg/dL >40 [facility] Comment on above: National Cholesterol Education Program (NCEP) guidelines:<40 mg/dL: Low HDL-cholesterol (major risk factor for CHD)>= 60 mg/dL: High HDL-cholesterol (negative risk factor for CHD)HDL-cholesterol is affected by a number of factors, e.g. smoking, exercise, hormones, sex and age. Serum or plasma cholesterol measurement (mass/volume)Ordered By: Fco Durand on 05-10-2024 Cholesterol [Mass/Vol] 132 mg/dL <201 [facility] Comment on above: Cholesterol level, D esirable <200 mg/dLBorderline high cholesterol 200-239 mg/dLHigh cholesterol >=240 mg/dLRecommendations of the NCEP Adult Treatment Panel for the following risk-cutoff thresholds for the [place] population. Total proteinOrdered By: Amadeo Durand on 05-10-2024 Protein [Mass/Vol] 6.3 g/dL 5.9-8.4 [facility] Triglycerides measurementOrd ered By: Fco Durand on 05-10-2024 Triglyceride [Mass/Vol] 79 mg/dL <199 [facility] Comment on above: The drugs N-Acetylcy steine and Metamizole may falsely depress this assay. Normal range: <150 mg/dLBorderline High: 150-199 mg/dLHigh: 200-499 mg/dLVery High: >500 mg/dL CNOVon 03-20-2024 CNOV Office Visit ([facility]) LES WANG ([id number]) 1945 M Date Time Provider Department 03/20/24 8:45 AM [facility] During your visit today, we recorded the following information about you: Temperature Pulse Respiration Blood pressure 101 degrees 97/minute 20/minute 110/82 Weight 79.5 kg Sabrina Portillo APRN.CNP 03/20/2024 9:42 AM Signed CC: Patient presents with: Cough: Chest congestion, fever x 1 week HPI: Les Wang is a 78 year old male who presents to the office with complaint of chest congestion, cough productive, and fever for a week. Symptoms are improving. Associated symptoms includes cough. Denies wheezing, dyspnea, nausea, vomiting , and diarrhea. Treatments tried include OTC cold medicine with no relief of symptoms. Sick contacts: unknown. History of asthma, frequent episodes of bronchitis, chronic bronchitis, bronchiectasis or COPD: No Smoker: No Seasonal/environment al allergies: No The ROS is otherwise negative. The patient's pmh, medications, allergies, and past visits are reviewed. PHYSICAL EXAM: BP 110/82 Pulse 97 Temp (!) 38.3 ?C (101 ?F) Resp 20 Wt 79.5 kg (175 lb 4.3 oz) SpO2 96% BMI 24.44 kg/m? General appearance: alert, cooperative, pleasant, in no acute distress Head: Normocephalic Eyes: EOM's intact, conjunctiva pink and moist, no icterus, sclera white, non-injected Ears: Right ear: External ear/canal- Normal, TM - clear with good landmarks. Left ear: External ear/canal- Normal, TM - clear with good landmarks Oropharynx:moist without lesions, No erythema, exudates or tonsillar hypertrophy. Uvula midline Neck:supple and no adenopathy Heart: Negative. RRR without obvious murmur, gallop, or rubs. No ectopy. Lungs: clear to auscultation, without rales or wheeze, good air exchange PAST MEDICAL HISTORY Diagnosis Date Acute appendicitis Atrial fibrillation (HCC) Had after CABG; no recurrence Internal hemorrhoids without mention of complication Kidney stones none for over 10 years now as of 07/23/2010 Unspecified cardiovascular disease s/p bypass PAST SURGICAL HISTORY Procedure Laterality Date CABG, ARTERIAL, FOUR+ 1998 COLONOSCOPY FLX DX W/COLLJ SPEC WHEN PFRMD 06/23/12 Colonoscopy LAPAROSCOPIC APPENDECTOMY 09/19/10 Ruptured ALLERGIES Patient has no known allergies. MEDICATIONS VIAGRA 50 mg tablet Take one(1) tablet daily as needed. Do not substitute with generic Aspirin 81 mg ORAL Tab Take 1 tablet by mouth once daily. lisinopril 5 mg ORAL tablet Take 1 tablet by mouth once daily. LIPITOR 10 MG ORAL TAB Take one(1) tablet daily. THERAPEUTIC MULTIVITAMIN ORAL TAB Take one(1) tablet daily. VITAMINS AND MINERALS ORAL TAB b6 and b12 qd FAMILY HISTORY Problem Relation Age of Onset Coronary Artery Disease Father Social History Tobacco Use Smoking status: Never Smokeless tobacco: Never Substance Use Topics Alcohol use: No Drug use: No ASSESSMENT/PLAN: 1. Acute cough - ICD9: 786.2, ICD10: R05.1 - XR CHEST 2V FRONTAL/LAT * * * * Physician Interpretation * * * * EXAMINATION: CHEST RADIOGRAPH (2 VIEW FRONTAL AND LATERAL) CLINICAL HISTORY: Acute cough MQ: XC2_6 EXAM DATE/TIME: 03/20/2024 9:35 AM COMPARISON: No relevant prior studies available. RESULT: Lines, tubes, and devices: None. Lungs and pleura: No consolidation. No lung mass. No pleural effusion. No pneumothorax. Cardiomediastinal silhouette: Normal cardiomediastinal silhouette. Bones and soft tissues: Status post median sternotomy with normally aligned sternal wires. IMPRESSION IMPRESSION: No acute radiographic abnormality. Telecom Engineer: [place] Transcribe Date/Time: Mar 20 2024 9:36A Dictated by : LINDSEY ASHFORD MD Supportive care at this time. Potential red flag symptoms discussed with the patient. Reviewed appropriate action plan to take if red flag symptoms occur. Patient agreeable to treatment plan. Sabrina Portillo APRN.CERTIFIED TOWER CLIMBER Allergies As of Date: 03/20/2024 (No Known Allergies) Date Reviewed: 03/20/2024 Reviewed by: Jackelin Montemayor MA - Fully Assessed Reason for Visit: Cough [28] Cmt: Chest congestion, fever x 1 week Primary Visit Diagnosis:Acute cough [R05.1] Order(s):XR CHEST 2V FRONTAL/LAT [[id number]] Order #: [id number] FUTURE Prescriptions as of 03/20/2024 - VIAGRA 50 mg tablet Take one(1) tablet daily as needed. Do not substitute with generic - Aspirin 81 mg ORAL Tab Take 1 tablet by mouth once daily. - lisinopril 5 mg ORAL tablet Take 1 tablet by mouth once daily. - LIPITOR 10 MG ORAL TAB Take one(1) tablet daily. - THERAPEUTIC MULTIVITAMIN ORAL TAB Take one(1) tablet daily. - VITAMINS AND MINERALS ORAL TAB b6 and b12 qd Problem List As Of Date 03/20/2024 Noted Resolved ASCVD [I25.10] ATRIAL FIBRILLATION [I48.91] Hyperlipidemia [E78.5] 12/25/2004 Essential hypertension [I10] 0 (more content not included)... Normal [facility] XR CHEST 2V FRONTAL/LATon XR CHEST 2V FRONTAL/LAT * * *Final Repor t* * * DATE OF EXAM: Mar 20 2024 9:35AM WOX 5291 - XR CHEST 2V FRONTAL/LAT / PROCEDURE REASON: Acute cough * * * * Physician Interpretation * * * * EXAMINATION: CHEST RADIOGRAPH (2 VIEW FRONTAL and LATERAL) CLINICAL HISTORY: Acute cough MQ: XC2_6 EXAM DATE/TIME: 03/20/2024 9:35 AM COMPARISON: No relevant prior studies available. RESULT: Lines, tubes, and devices: None. Lungs and pleura: No consolidation. No lung mass. No pleural effusion. No pneumothorax. Cardiomediastinal silhouette: Normal cardiomediastinal silhouette. Bones and soft tissues: Status post median sternotomy with normally aligned sternal wires. IMPRESSION: No acute radiographic abnormality. Telecom Engineer: BENTON Transcribe Date/Time: Mar 20 2024 9:36A Dictated by : LINDSEY ASHFORD MD This examination was interpreted and the report reviewed and electronically signed by: LINDSEY ASHFORD MD on Mar 20 2024 9:36AM EST [id number] Normal [facility] XR Chest PA and Lateralon IMPRESSION: No acute radiographic abnormality. Telecom Engineer: [employer] Transcribe Date/Time: Mar 20 2024 9:36A Dictated by : LINDSEY ASHFORD MD This examination was interpreted and the report reviewed and electronically signed by: LINDSEY ASHFORD MD on Mar 20 2024 9:36AM EST DIVISION OF RADIOLOGY * * *Final Report* * * DATE OF EXAM: Mar 20 2024 9:35AM WOX 5291 - XR CHEST 2V FRONTAL/LAT / PROCEDURE REASON: Acute cough * * * * Physician Interpretation * * * * EXAMINATION: CHEST RADIOGRAPH (2 VIEW FRONTAL & LATERAL) CLINICAL HISTORY: Acute cough MQ: XC2_6 EXAM DATE/TIME: 03/20/2024 9:35 AM COMPARISON: No relevant prior studies available. RESULT: Lines, tubes, and devices: None. Lungs and pleura: No consolidation. No lung mass. No pleural effusion. No pneumothorax. Cardiomediastinal silhouette: Normal cardiomediastinal silhouette. Bones and soft tissues: Status post median sternotomy with normally aligned sternal wires. DIVISION OF RADIOLOGY Provider, [facility] [place] - 03/20/2024 * * *Final Report* * * DATE OF EXAM: Mar 20 2024 9:35AM WOX 5291 - XR CHEST 2V FRONTAL/LAT / PROCEDURE REASON: Acute cough * * * * Physician Interpretation * * * * EXAMINATION: CHEST RADIOGRAPH (2 VIEW FRONTAL & LATERAL) CLINICAL HISTORY: Acute cough MQ: XC2_6 EXAM DATE/TIME: 03/20/2024 9:35 AM COMPARISON: No relevant prior studies available. RESULT: Lines, tubes, and devices: None. Lungs and pleura: No consolidation. No lung mass. No pleural effusion. No pneumothorax. Cardiomediastinal silhouette: Normal cardiomediastinal silhouette. Bones and soft tissues: Status post median sternotomy with normally aligned sternal wires. IMPRESSION IMPRESSION: No acute radiographic abnormality. Telecom Engineer: BENTON Transcribe Date/Time: Mar 20 2024 9:36A Dictated by : LINDSEY ASHFORD MD This examination was interpreted and the report reviewed and electronically signed by: LINDSEY ASHFORD MD on Mar 20 2024 9:36AM EST [facility] Radiology Study observation (narrative) Marie pillai [facility] XR Chest PA and LateralOrder ed By: [facility] Provider on 03-20-2024 [facility] Basophil percentageOrdered B y: Bridger Geovani on 04-25-2023 Bilirubin [Mass/Vol] 1.20 mg/dL 0.20-1.00 [facility] Comment on above: For patients on eltr ombopag therapy, use of Dimension Gulliver TBIL is not recommended. Cholesterol [Mass/Vol] 128 mg/dL <200 [facility] Comment on above: <200 mg/dL Desirable 200-240 mg/dL Borderline >240 mg/dL High Risk Protein [Mass/Vol] 6.5 g/dL 6.4-8.2 [facility] Triglyceride [Mass/Vol] 61 mg/dL <199 [facility] Comment on above: The drugs N-Acetylcy steine and Metamizole may falsely depress this assay.Serum Triglycerides Reference Interval Normal <150 mg/dL Borderline high 150 - 199 mg/dL High 200 - 499 mg/dL Very High > or = 500 mg/dL Basophil percentageOrdered B y: Addison Ragsdale on 04-25-2023 Basophil percentage 4.12 ng/mL 0.0-4.0 [facility] Comment on above: This test was perfor med using the TPSA assay method for the[employer] (P) chemistry system. Values obtained with differentassay methods cannot be used interchangably.When changing PSA assays in the course of monitoring apatient, additional sequential testing should be carriedout to confirm baseline values. Direct bilirubinOrdered By: Bridger Olivo on 04-25-2023 Bilirubin.direct [Mass/Vol] 0.30 mg/dL 0.00-0.30 [facility] - Chemistry and C hemistry - challengeOrdered By: Bridger Olivo on 04-25-2023 ALP [Catalytic activity/Vol] 79 U/L 45-117 [facility] ALT [Catalytic activity/Vol] 24 U/L 16-61 [facility] Cholesterol in HDL [Mass/Vol] 57 mg/dL >40 [facility] Comment on above: The drugs N-Acetylcy steine and Metamizole may falsely depress this assay. Reference Range HDL <40 mg/dL Low HDL Cholesterol HDL >or= 60 mg/dL High HDL Cholesterol Cholesterol in LDL [Mass/Vol] 59 mg/dL 0-130 [facility] Globulin (S) [Mass/Vol] 2.8 g/dL 2.2-4.2 [facility] No Panel InformationOrdered By: Bridger Olivo on 04-25-2023 VLDL Cholesterol 12 mg/dL 5-40 [facility] Thin prep Papanicolaou smear with manual screeningOrdered By: Bridger Olivo on 04-25-2023 Thin prep Papanicolaou smear with manual screening 3.7 g/dL 3.2-5.0 [facility] Thin prep Papanicolaou smear with manual screening 17 U/L 15-37 [facility] Basophil percentageOrdered B y: Dr. Durand on 05-23-2022 Bilirubin [Mass/Vol] 1.40 mg/dL 0.20-1.00 [facility] Comment on above: For patients on eltr ombopag therapy, use of Dimension Gulliver TBIL is not recommended. Cholesterol [Mass/Vol] 135 mg/dL <200 [facility] Comment on above: <200 mg/dL Desirable 200-240 mg/dL Borderline >240 mg/dL High Risk Protein [Mass/Vol] 6.7 g/dL 6.4-8.2 [facility] Triglyceride [Mass/Vol] 53 mg/dL <199 [facility] Comment on above: The drugs N-Acetylcy steine and Metamizole may falsely depress this assay.Serum Triglycerides Reference Interval Normal <150 mg/dL Borderline high 150 - 199 mg/dL High 200 - 499 mg/dL Very High > or = 500 mg/dL Basophil percentageOrdered B y: Dr. aPlma on 05-23-2022 Chloride [Moles/Vol] 105 mmol/L 98-107 [facility] Glucose [Mass/Vol] 96 mg/dL 74-106 [facility] Potassium [Moles/Vol] 4.0 mmol/L 3.5-5.1 [facility] Sodium [Moles/Vol] 139 mmol/L 136-145 [facility] WBC (Bld) [#/Vol] 5.2 10*3/uL 4.4-11.0 [facility] Blood erythrocytes count (nu mber/volume)Ordered By: Dr. Palma on 05-23-2022 RBC (Bld) [#/Vol] 4.52 10*6/uL 4.6-6.2 [facility] Blood hemoglobin measurement (mass/volume)Ordered By: Dr. Palma on 05-23-2022 Hemoglobin (Bld) [Mass/Vol] 14.7 g/dL 13.0-16.5 [facility] Blood platelet mean volumeOr dered By: Dr. Palma on 05-23-2022 Platelet mean volume (Bld) [Entitic vol] 9.0 fL 6.2-12.0 [facility] Determination of erythrocyte mean corpuscular volume (MCV)Ordered By: Dr. Palma on 05-23-2022 MCV (RBC) [Entitic vol] 99.3 fL 80-94 [facility] Direct bilirubinOrdered By: Dr. Durand on 05-23-2022 Bilirubin.direct [Mass/Vol] 0.32 mg/dL 0.00-0.30 [facility] Hematocrit Auto (Bld) [Volum e fraction]Ordered By: Dr. Palma on 05-23-2022 Hematocrit (Bld) [Volume fraction] 44.9 % 40-54 [facility] - Chemistry and C hemistry - challengeOrdered By: Dr. Durand on 05-23-2022 ALP [Catalytic activity/Vol] 70 U/L 45-117 [facility] ALT [Catalytic activity/Vol] 22 U/L 16-61 [facility] Globulin (S) [Mass/Vol] 2.9 g/dL 2.2-4.2 [facility] - Chemistry and C hemistry - challengeOrdered By: Dr. Palma on 05-23-2022 CO2 [Moles/Vol] 28.0 mmol/L 21.0-32.0 [facility] Urea nitrogen/Creatinine [Mass ratio] 22.0 mg/mg 10-20 [facility] - Hematology and Cell countsOrdered By: Dr. Palma on 05-23-2022 Erythrocyte distribution width (RBC) [Entitic vol] 43.7 fL 35.1-43.9 [facility] Erythrocyte distribution width (RBC) [Ratio] 11.9 % 11.6-14.6 [facility] MCH (RBC) [Entitic mass] 32.5 pg 27.0-32.0 [facility] MCHC Auto (RBC) [Mass/Vol]Or dered By: Dr. Palma on 05-23-2022 MCHC (RBC) [Mass/Vol] 32.7 g/dL 32-36 [facility] No Panel InformationOrdered By: Dr. Palma on 05-23-2022 Estimated GFR (MDRD) Amer 84 mL/min >60 [facility] Comment on above: GFR Calc Estimated GFR (MDRD) Non-Af Amer 70 mL/min >60 [facility] Comment on above: Non- GFR Calc Platelets bldOrdered By: Dr. Palma on 05-23-2022 Platelets (Bld) [#/Vol] 153 10*3/uL 150-450 [facility] Serum or plasma albumin melani urement (mass/volume)Ordered By: Dr. Durand on 05-23-2022 Albumin [Mass/Vol] 3.8 g/dL 3.2-5.0 [facility] Serum or plasma calcium melani urement (mass/volume)Ordered By: Dr. Palma on 05-23-2022 Calcium [Mass/Vol] 9.4 mg/dL 8.5-10.1 [facility] Serum or plasma cholesterol in HDL measurement (mass/volume)Ordered By: Dr. Durand on 05-23-2022 Cholesterol in HDL [Mass/Vol] 61 mg/dL >40 [facility] Comment on above: The drugs N-Acetylcy steine and Metamizole may falsely depress this assay. Reference Range HDL <40 mg/dL Low HDL Cholesterol HDL >or= 60 mg/dL High HDL Cholesterol Serum or plasma cholesterol in VLDL measurement (mass/volume)Ordered By: Dr. Durand on 05-23-2022 Cholesterol in VLDL [Mass/Vol] 11 mg/dL 5-40 [facility] Serum or plasma creatinine m easurement (mass/volume)Ordered By: Dr. Palma on 05-23-2022 Creatinine [Mass/Vol] 1.09 mg/dL 0.70-1.30 [facility] Comment on above: The validity of the calculated GFR & GFRAA in patients over 70 years has not been determined. Clinical correlation is essential. Serum or plasma low density lipoprotein (LDL) cholesterol measurement (mass/volume)Ordered By: Dr. Durand on 05-23-2022 Cholesterol in LDL [Mass/Vol] 63 mg/dL 0-130 [facility] Serum or plasma urea nitroge n measurement (mass/volume)Ordered By: Dr. Palma on 05-23-2022 Urea nitrogen [Mass/Vol] 24 mg/dL 7-18 [facility] Thin prep Papanicolaou smear with manual screeningOrdered By: Dr. Durand on 05-23-2022 Thin prep Papanicolaou smear with manual screening 13 U/L 15-37 [facility] Thin prep Papanicolaou smear with manual screeningOrdered By: Dr. Palma on 05-23-2022 Thin prep Papanicolaou smear with manual screening 6 5-15 [facility] No Panel InformationOrdered By: Dr. Ragsdale on 04-22-2022 Prostate Specific Antigen Total 4.14 ng/mL 0.0-4.0 [facility] Comment on above: This test was perfor med using the TPSA assay method for [employer] chemistry system. Values obtained with differentassay methods cannot be used interchangably.When changing PSA assays in the course of monitoring apatient, additional sequential testing should be carriedout to confirm baseline values. Basophil percentageon 2021 Basophil percentage < 0.9 mg/dL 0.70-1.30 [facility] Work Phone: No Panel Informationon 07-24 Bedside Estimated GFR (eGFR) > 60.0000 mL/min >60 [facility] Work Phone: [phone] Basophil percentageon 2021 Bilirubin [Mass/Vol] 1.40 mg/dL 0.20-1.00 [facility] Work Phone: Comment on above: For patients on eltr ombopag therapy, use of Dimension Gulliver TBIL is not recommended. Cholesterol [Mass/Vol] 127 mg/dL <200 [facility] Work Phone: Comment on above: <200 mg/dL Desirable 200-240 mg/dL Borderline >240 mg/dL High Risk Protein [Mass/Vol] 6.8 g/dL 6.4-8.2 [facility] Work Phone: [phone] Triglyceride [Mass/Vol] 69 mg/dL [facility] Work Phone: [phone] Comment on above: The drugs N-Acetylcy steine and Metamizole may falsely depress this assay.Serum Triglycerides Reference Interval Normal <150 mg/dL Borderline high 150 - 199 mg/dL High 200 - 499 mg/dL Very High > or = 500 mg/dL Direct bilirubinon 2 Bilirubin.direct [Mass/Vol] 0.31 mg/dL 0.00-0.30 [facility] Work Phone: [phone] Laboratory - Chemistry and C hemistry - challengeon 04-16-2021 ALP [Catalytic activity/Vol] 77 U/L 45-117 [facility] Work Phone: [phone] ALT [Catalytic activity/Vol] 29 U/L 16-61 [facility] Work Phone: [phone] Globulin (S) [Mass/Vol] 2.8 g/dL 2.2-4.2 [facility] Work Phone: [phone] No Panel Informationon 04-16 Prostate Specific Antigen Total 4.71 ng/mL 0.0-4.0 [facility] Work Phone: Comment on above: This test was perfor med using the TPSA assay method for the[employer] (P) chemistry system. Values obtained with differentassay methods cannot be used interchangably.When changing PSA assays in the course of monitoring apatient, additional sequential testing should be carriedout to confirm baseline values. Serum or plasma albumin melani urement (mass/volume)on 04-16-2021 Albumin [Mass/Vol] 4.0 g/dL 3.2-5.0 [facility] Work Phone: [phone] Serum or plasma cholesterol in HDL measurement (mass/volume)on 04-16-2021 Cholesterol in HDL [Mass/Vol] 61 mg/dL [facility] Work Phone: Comment on above: The drugs N-Acetylcy steine and Metamizole may falsely depress this assay. Reference Range HDL <40 mg/dL Low HDL Cholesterol HDL >or= 60 mg/dL High HDL Cholesterol Serum or plasma cholesterol in VLDL measurement (mass/volume)on 04-16-2021 Cholesterol in VLDL [Mass/Vol] 14 mg/dL 5-40 [facility] Work Phone: [phone] Serum or plasma low density lipoprotein (LDL) cholesterol measurement (mass/volume)on 04-16-2021 Cholesterol in LDL [Mass/Vol] 52 mg/dL 0-130 [facility] Work Phone: Thin prep Papanicolaou smear with manual screeningon 04-16-2021 Thin prep Papanicolaou smear with manual screening 15 U/L 15-37 [facility] Work Phone: Office Visiton 10-31-2016 Fall risk assessment No Invalid Interpretation Code [employer] Work Phone: [phone] Protein mass conc Done Invalid Interpretation Code [employer] Phone: [phone] Lab Report: Lipid Profileon 10-28-2016 Cholesterol 121 mg/dL Invalid Interpretation Code 200 [employer] Work Phone: [phone] HDL Cholesterol 62 mg/dL Invalid Interpretation Code [employer] Phone: [phone] LDL Cholesterol 48 mg/dL Invalid Interpretation Code 0-130 [facility] [employer] Work Phone: [phone] Triglyceride 56 mg/dL Invalid Interpretation Code [employer] Phone: [phone] very low density lipoproteins 11 mg/dL Invalid Interpretation Code 5-40 [facility] [employer] Work Phone: [phone] Lab Report: Liver Profileon 10-28-2016 Alanine aminotransferase (ALT) 24 U/L Invalid Interpretation Code 12-78 [employer] Phone: [phone] Albumin 3.9 g/dL Invalid Interpretation Code 3.4-5.0 [employer] Phone: [phone] Alkaline phosphatase (ALP) 65 U/L Invalid Interpretation Code 45-117 [facility] [employer] Work Phone: [phone] ALP enzyme act/vol (Bld) 65 U/L Invalid Interpretation Code 45-117 [employer] [facility] [employer] Work Phone: [phone] Aspartate aminotransferase (AST) 15 U/L Invalid Interpretation Code 15-37 [employer] Phone: [phone] Bilirubin (direct) 0.23 mg/dL Invalid Interpretation Code 0.00-0.30 [facility] Work Phone: [phone] Bilirubin (total) 0.90 mg/dL Invalid Interpretation Code 0.20-1.00 [employer] Phone: [phone] Globulin 2.7 g/dL Invalid Interpretation Code 2.3-3.5 [facility] Work Phone: [phone] Globulin mass conc (S) 2.7 g/dL 2.3-3.5 [facility] Work Phone: [phone] Protein 6.6 g/dL Invalid Interpretation Code 6.4-8.2 [facility] Work Phone: [phone] Lab Report: Basic Metabolic Profile (BMP)on 06-18-2016 Anion gap 8 mmol/L Invalid Interpretation Code 5-15 [facility] Work Phone: [phone] Anion gap 4 molar conc 8 Invalid Interpretation Code 5-15 [facility] Work Phone: [phone] Anion gap molar conc 8 mmol/L 5-[address] [facility] Work Phone: [phone] BUN/Creatinine Ratio 15.2 RATIO Invalid Interpretation Code 10-20 [facility] Work Phone: [phone] Calcium 9.4 mg/dL Invalid Interpretation Code 8.5-10.1 [facility] Work Phone: [phone] Chloride 105 mmol/L Invalid Interpretation Code 98-107 [facility] Work Phone: [phone] CO2 28.0 mmol/L Invalid Interpretation Code 21.0-32.0 [facility] Work Phone: [phone] CO2 ppres (BldV) 28.0 mmol/L Invalid Interpretation Code 21.0-32.0 [facility] Work Phone: [phone] Creatinine 1.05 mg/dL Invalid Interpretation Code 0.70-1.30 [facility] Work Phone: [phone] eGFR (non-black) 74 mL/min/{1.73_m2} Invalid Interpretation Code >60 [facility] Work Phone: [phone] eGFR (non-black) 89 mL/min/{1.73_m2} Invalid Interpretation Code >60 [facility] Work Phone: [phone] EST GFR - AA 89 mL/min Invalid Interpretation Code >60 [facility] Work Phone: [phone] Glucose 75 mg/dL Invalid Interpretation Code 70-110 [facility] Work Phone: [phone] Glucose mass conc 75 mg/dL Invalid Interpretation Code 70-110 [facility] Work Phone: [phone] Potassium 4.1 mmol/L Invalid Interpretation Code 3.5-5.1 [facility] Work Phone: [phone] Sodium 141 mmol/L Invalid Interpretation Code 136-145 [facility] Work Phone: [phone] Urea nitrogen 16 mg/dL Invalid Interpretation Code 7-18 [facility] Work Phone: [phone] Lab Report: CBC W/Diff, Auto matedon 06-18-2016 Basophils/100 leukocytes 0.2 % Invalid Interpretation Code 0-1 [facility] Work Phone: [phone] Basophils/100 WBC (Bld) 0.2 % 0-1 [facility] Work Phone: [phone] Eosinophils/100 leukocytes 1.8 % Invalid Interpretation Code 0-5 [facility] Work Phone: [phone] Eosinophils/100 WBC (Bld) 1.8 % 0-5 [facility] Work Phone: [phone] Erythrocyte distribution width Auto Ratio (RBC) 47.0 fL High 35.1-43.9 [facility] Work Phone: [phone] Erythrocyte distribution width Ratio (RBC) 12.8 % 11.6-14.6 [facility] Work Phone: [phone] Erythrocyte distribution width Ratio (RBC) 47.0 fL High 35.1-43.9 [facility] Work Phone: [phone] Erythrocytes (RBC) 4.71 10*6/uL Invalid Interpretation Code 4.6-6.2 [facility] Work Phone: [phone] Hematocrit (HCT) 47.2 % Invalid Interpretation Code 40-54 [facility] Work Phone: [phone] Hematocrit Volume Fraction (Bld) 47.2 % 40-54 [facility] Work Phone: [phone] Hemoglobin (HGB) 15.2 g/dL Invalid Interpretation Code 13.0-16.5 [facility] Work Phone: [phone] Immature granulocytes #/vol (Bld) 0.300 % Invalid Interpretation Code 0.0-0.9 [facility] Work Phone: [phone] immature granulocytes, percentage of total cells, blood 0.300 % Invalid Interpretation Code 0.0-0.9 [facility] Work Phone: [phone] Lymphocytes 1.21 X10 3/UL Invalid Interpretation Code 0.83-4.51 [facility] Work Phone: [phone] Lymphocytes #/vol (Bld) 1.21 X10 3/UL 0.83-4.51 [facility] Work Phone: [phone] Lymphocytes/100 leukocytes 19.3 % Invalid Interpretation Code 19-41 [facility] Work Phone: [phone] Lymphocytes/100 WBC (Bld) 19.3 % 19-41 [facility] Work Phone: [phone] MCH 32.3 pg High 27.0-32.0 [facility] Work Phone: [phone] MCH Entitic mass (RBC) 32.3 pg High 27.0-32.0 [facility] Work Phone: [phone] MCHC 32.2 G/GL Invalid Interpretation Code 32-36 [facility] Work Phone: [phone] MCHC mass conc (RBC) 32.2 G/GL 32-[address] [facility] Work Phone: [phone] MCV 100.2 fL High 80-94 [facility] Work Phone: [phone] MCV Entitic volume (RBC) 100.2 fL High 80-94 [facility] Work Phone: [phone] Monocytes/100 leukocytes 15.5 % High 0-10 [facility] Work Phone: [phone] Monocytes/100 WBC (Bld) 15.5 % High 0-10 [facility] Work Phone: [phone] neutrophil count, blood 3.9 X10 3/UL Invalid Interpretation Code 2.0-7.7 [facility] Work Phone: [phone] Neutrophils #/vol (Bld) 3.9 X10 3/UL 2.0-7.7 [facility] Work Phone: [phone] Neutrophils Auto #/vol (Bld) 3.9 X10 3/UL Invalid Interpretation Code 2.0-7.7 [facility] Work Phone: [phone] Neutrophils/100 leukocytes 62.9 % Invalid Interpretation Code 47-70 [facility] Work Phone: [phone] Neutrophils/100 WBC (Bld) 62.9 % 47-70 [facility] Work Phone: [phone] Platelet mean volume Entitic volume (Bld) 9.4 fL 6.2-12.0 [employer] Work Phone: [phone] Platelets 189 10*3/mm3 Invalid Interpretation Code 150-450 [facility] Work Phone: [phone] Platelets #/vol (Bld) 189 10*3/mm3 150-450 [employer] Work Phone: [phone] PMV by Brendan 9.4 fL Invalid Interpretation Code 6.2-12.0 [employer] Work Phone: [phone] RBC #/vol (Bld) 4.71 10*6/uL 4.6-6.2 [employer] Work Phone: [phone] RDW-CA 12.8 % Invalid Interpretation Code 11.6-14.6 [employer] Work Phone: [phone] red blood cell distribution width, size density 47.0 fL High 35.1-43.9 [employer] Work Phone: [phone] WBC #/vol (Bld) 6.3 10*3/uL 4.4-11.0 [employer] Work Phone: [phone] WBC (Leukocytes) 6.3 10*3/uL Invalid Interpretation Code 4.4-11.0 [employer] Work Phone: [phone] Lab Report: Magnesiumon 05- Magnesium 2.5 mg/dL High 1.8-2.4 [employer] Work Phone: [phone] Lab Report: T4 Total, Thyrox inon 06-18-2016 Thyroxine (T4) 10.3 ug/dL Invalid Interpretation Code 4.5-12.1 [employer] Work Phone: [phone] Lab Report: Thyroid Stim Hor elisa (TSH)on 06-18-2016 Thyroid stimulating hormone (TSH) 0.43 u[iU]/mL Invalid Interpretation Code 0.358-3.74 [facility] Work Phone: [phone] Office Visiton 06-18-2016 Documentation of current medications (procedure) Done Invalid Interpretation Code [employer] Phone: [phone] Fall risk assessment No [place] [facility] [employer] Work Phone: [phone] Protein mass conc Done [facility] [employer] Work Phone: [phone] Replaced Document: [place] E CG Observationson 06-18-2016 EKG QRS axis 26 deg Invalid Interpretation Code [facility] Work Phone: [phone] electrocardiogram interpretation Sinus Rhythm -With rate variation cv = 10.-Left atrial enlargement. BORDERLINE Invalid Interpretation Code [employer] Work Phone: [phone] GE use only - for [employer] import when terms are not otherwise specified 387 ms Invalid Interpretation Code [employer] Work Phone: [phone] Interpretation Sinus Rhythm -With rate variation cv = 10.-Left atrial enlargement. BORDERLINE Invalid Interpretation Code [facility] Work Phone: [phone] P [place] 56 deg Invalid Interpretation Code [employer] Work Phone: [phone] P wave axis, electrocardiogram 56 deg Invalid Interpretation Code [facility] Work Phone: [phone] VT Interval 148 ms Invalid Interpretation Code [facility] Work Phone: [phone] VT interval, electrocardiogram 148 ms Invalid Interpretation Code [facility] Work Phone: [phone] Pulse (Heart Rate) 72 /min Invalid Interpretation Code [facility] Work Phone: QRS axis, electrocardiogram 26 deg Invalid Interpretation Code [facility] Work Phone: [phone] QRS Duration 90 ms Invalid Interpretation Code [facility] Work Phone: [phone] QRS duration, electrocardiogram 90 ms Invalid Interpretation Code [facility] Work Phone: [phone] QT Interval new path ms Invalid Interpretation Code [facility] Work Phone: [phone] QT interval, electrocardiogram new path ms Invalid Interpretation Code [employer] Work Phone: [phone] QTc [place] 387 ms Invalid Interpretation Code [employer] Phone: [phone] T [place] 23 deg Invalid Interpretation Code [employer] Phone: [phone] T wave axis, electrocardiogram 23 deg Invalid Interpretation Code [employer] Phone: [phone] Office Visiton 05-03-2016 Documentation of current medications (procedure) Done Invalid Interpretation Code [employer] Phone: [phone] Lab Report: Lipid Profileon 05-01-2016 Cholesterol 138 mg/dL Invalid Interpretation Code 200 [employer] Work Phone: [phone] HDL Cholesterol 66 mg/dL Invalid Interpretation Code [employer] Phone: [phone] LDL Cholesterol 57 mg/dL Invalid Interpretation Code 0-130 [facility] Phone: [phone] Triglyceride 74 mg/dL Invalid Interpretation Code [employer] [facility] Phone: [phone] very low density lipoproteins 15 mg/dL Invalid Interpretation Code 5-40 [employer] [facility] Phone: [phone] Lab Report: Liver Profileon 05-01-2016 Alanine aminotransferase (ALT) 26 U/L Invalid Interpretation Code 12-78 [employer] [facility] Phone: [phone] Albumin 4.3 g/dL Invalid Interpretation Code 3.4-5.0 [employer] Phone: [phone] Alkaline phosphatase (ALP) 82 U/L Invalid Interpretation Code 45-117 [employer] [facility] Phone: [phone] Aspartate aminotransferase (AST) 16 U/L Invalid Interpretation Code 15-37 [employer] Phone: [phone] Bilirubin (direct) 0.28 mg/dL Invalid Interpretation Code 0.00-0.30 [employer] [facility] Phone: [phone] Bilirubin (total) 1.30 mg/dL High 0.20-1.00 [employer] Phone: [phone] Globulin 2.8 g/dL Invalid Interpretation Code 2.3-3.5 [employer] Phone: [phone] Protein 7.1 g/dL Invalid Interpretation Code 6.4-8.2 [facility] Work Phone: [phone] Clinical Lists Update: Clini taylor Noteon 05-15-2015 Left ventricular Ejection fraction 65 % Invalid Interpretation Code [facility] Work Phone: [phone] Office Visiton 04-06-2015 Tobacco smoking status NHIS Never smoker Invalid Interpretation Code [facility] Work Phone: [phone] Tobacco use CPHS Never smoker Invalid Interpretation Code [facility] Work Phone: [phone] Office Visiton 04-05-2014 cardiac risk group C Invalid Interpretation Code [facility] Work Phone: [phone] General cardiovascular disease 10Y risk [#] Drift.D'Agostino N/A Invalid Interpretation Code [facility] Work Phone: [phone] Tobacco smoking status NHIS Never Invalid Interpretation Code [facility] Work Phone: [phone] Vital Signs Date Time Vital Sign Value Performing Clinician Facility 09-16-2024 09:13-0400 Body height 177.[address] Gina Smith MD Work Phone: [facility] 09-16-2024 09:13-0400 Body mass index (BMI) [Ratio] 24.2 kg/m2 Dr. Gina Smith MD Work Phone: [facility] 09-16-2024 09:13-0400 Body weight 76.[address] Gina Smith MD Work Phone: [facility] 09-16-2024 09:13-0400 Diastolic blood pressure 74 mm[Hg] Dr. Gina Smith MD Work Phone: [facility] 09-16-2024 09:13-0400 Heart rate 52 /min Dr. Gina Smith MD Work Phone: [facility] 09-16-2024 09:13-0400 Respiratory rate 16 /min Dr. Gina Smith MD Work Phone: [facility] 09-16-2024 09:13-0400 Systolic blood pressure 126 mm[Hg] Dr. Gina Smith MD Work Phone: [facility] 03-20-2024 09:19-0500 Body mass index (BMI) [Ratio] 24.44 kg/m2 Dong Tse CLINICAL MANAGER.CERTIFIED TOWER CLIMBER Work Phone: [facility] 03-20-2024 09:19-0500 Body temperature 100.99 [degF] Dong Tse CLINICAL MANAGER.CERTIFIED TOWER CLIMBER Work Phone: [facility] 03-20-2024 09:19-0500 Body weight 79.5 kg Dong Tse CLINICAL MANAGER.CERTIFIED TOWER CLIMBER Work Phone: [facility] 03-20-2024 09:19-0500 Diastolic blood pressure 82 mm[Hg] Dong Tse CLINICAL MANAGER.CERTIFIED TOWER CLIMBER Work Phone: [facility] 03-20-2024 09:19-0500 Heart rate 97 /min Dong Tse CLINICAL MANAGER.CERTIFIED TOWER CLIMBER Work Phone: [facility] 03-20-2024 09:19-0500 Respiratory rate 20 /min Dong Tse CLINICAL MANAGER.CERTIFIED TOWER CLIMBER Work Phone: [facility] 03-20-2024 09:19-0500 SaO2% (BldA) [Mass fraction] 96 % Dong Tse CLINICAL MANAGER.CERTIFIED TOWER CLIMBER Work Phone: [facility] 03-20-2024 09:19-0500 Systolic blood pressure 110 mm[Hg] Dong Tse CLINICAL MANAGER.CERTIFIED TOWER CLIMBER Work Phone: [facility] 05-29-2022 15:16-0400 Body temperature 97.6 [degF] Dr. Gina Smith Work Phone: [facility] 05-29-2022 15:16-0400 Diastolic blood pressure 66 mm[Hg] Dr. Gina Smith Work Phone: [facility] 05-29-2022 15:16-0400 Heart rate 59 /min Dr. Gina Smith Work Phone: [facility] 05-29-2022 15:16-0400 Respiratory rate 16 /min Dr. Gina Smith Work Phone: [facility] 05-29-2022 15:16-0400 SaO2% (BldA) [Mass fraction] 98 % Dr. Gina Smith Work Phone: [facility] 05-29-2022 15:16-0400 Systolic blood pressure 121 mm[Hg] Dr. Gina Smith Work Phone: [facility] 05-29-2022 11:16-0400 Body height 177.[address] Gina Smith Work Phone: [facility] 05-29-2022 11:16-0400 Body mass index (BMI) [Ratio] 24.7 kg/m2 Dr. Gina Smith Work Phone: [facility] 05-29-2022 11:16-0400 Body weight 78.[address] Gina Smith Work Phone: [facility] 05-13-2022 13:44-0400 Body temperature 97 [degF] Dr. Gina Smith Work Phone: [facility] 05-13-2022 13:44-0400 Body weight 78.[address] Gina Smith Work Phone: [facility] 05-13-2022 13:44-0400 Diastolic blood pressure 72 mm[Hg] Dr. Gina Smith Work Phone: [facility] 05-13-2022 13:44-0400 Heart rate 116 /min Dr. Gina Smith Work Phone: [facility] 05-13-2022 13:44-0400 Respiratory rate 16 /min Dr. Gina Smith Work Phone: [facility] 05-13-2022 13:44-0400 SaO2% (BldA) [Mass fraction] 97 % Dr. Gina Smith Work Phone: [facility] 05-13-2022 13:44-0400 Systolic blood pressure 131 mm[Hg] Dr. Gina Smith Work Phone: [facility] 10-07-2021 01:50-0400 Diastolic blood pressure 80 mm[Hg] [facility] Work Phone: 10-07-2021 01:50-0400 Heart rate 62 /min [facility] Work Phone: 10-07-2021 01:50-0400 Respiratory rate 16 /min [facility] Work Phone: 10-07-2021 01:50-0400 SaO2% (BldA) [Mass fraction] 98 % [facility] Work Phone: 10-07-2021 01:50-0400 Systolic blood pressure 132 mm[Hg] [facility] Work Phone: 10-06-2021 23:58-0400 Body height 177.8 cm [facility] Work Phone: 10-06-2021 23:58-0400 Body mass index (BMI) [Ratio] 24.3 kg/m2 [facility] Work Phone: 10-06-2021 23:58-0400 Body temperature 98.2 [degF] [facility] Work Phone: 10-06-2021 23:58-0400 Body weight 77.11 kg [facility] Work Phone: 04-26-2021 07:54-0500 Body height 177.[address] Gina Smith Work Phone: [facility] Work Phone: 04-26-2021 07:54-0500 Body mass index (BMI) [Ratio] 25.5 kg/m2 Dr. Gina Smith Work Phone: [facility] Work Phone: 04-26-2021 07:54-0500 Body weight 80.[address] Gina Smith Work Phone: [facility] Work Phone: 04-26-2021 07:54-0500 Diastolic blood pressure 76 mm[Hg] Dr. Gina Smith Work Phone: [facility] Work Phone: 04-26-2021 07:54-0500 Heart rate 68 /min Dr. Gina Smith Work Phone: [facility] Work Phone: 04-26-2021 07:54-0500 Respiratory rate 16 /min Dr. Gina Smith Work Phone: [facility] Work Phone: 04-26-2021 07:54-0500 SaO2% (BldA) [Mass fraction] 100 % Dr. Gina Smith Work Phone: [facility] Work Phone: 04-26-2021 07:54-0500 Systolic blood pressure 130 mm[Hg] Dr. Gina Smith Work Phone: [facility] Work Phone: 10-31-2016 09:25-0400 BMI (Body Mass Index) 24.39 kg/m2 Viktoria Wu [facility] Work Phone: 10-31-2016 09:25-0400 BP Diastolic 70 mm[Hg] Viktoria Wu [facility] Work Phone: 10-31-2016 09:25-0400 BP Systolic 120 mm[Hg] Viktoria Wu [facility] Work Phone: 10-31-2016 09:25-0400 Height 177.8 cm Viktoria Wu [facility] Work Phone: 10-31-2016 09:25-0400 Pulse (Heart Rate) 68 /min [facility] Work Phone: 10-31-2016 09:25-0400 Respiratory Rate 20 /min [facility] Work Phone: 10-31-2016 09:25-0400 Weight 77.11 kg Viktor[facility] Work Phone: 06-18-2016 08:44-0400 Heart rate 72 /min [facility] Work Phone: 06-18-2016 08:34-0400 BMI (Body Mass Index) 24.39 kg/m2 Fco Durand MD [facility] Work Phone: 06-18-2016 08:34-0400 BP Diastolic 60 mm[Hg] Fco Durand MD [facility] Work Phone: 06-18-2016 08:34-0400 BP Systolic 120 mm[Hg] Fco Durand MD [facility] Work Phone: 06-18-2016 08:34-0400 Height 177.8 cm Fco Durand MD [facility] Work Phone: 06-18-2016 08:34-0400 Pulse (Heart Rate) 72 /min Fco Durand MD [facility] Work Phone: 06-18-2016 08:34-0400 Respiratory Rate 20 /min MD [facility] Work Phone: 06-18-2016 08:34-0400 Weight 77.11 kg MD [facility] Work Phone: 05-03-2016 08:04-0400 BMI (Body Mass Index) 24.53 kg/m2 MD [facility] Work Phone: 05-03-2016 08:04-0400 BP Diastolic 58 mm[Hg] MD [facility] Work Phone: 05-03-2016 08:04-0400 BP Systolic 104 mm[Hg] Fco Durand MD [facility] Work Phone: 05-03-2016 08:04-0400 Height 177.8 cm Fco Durand MD [facility] Work Phone: 05-03-2016 08:04-0400 Pulse (Heart Rate) 68 /min Fco Durand MD [facility] Work Phone: 05-03-2016 08:04-0400 Respiratory Rate 18 /min Fco Durand MD [facility] Work Phone: 05-03-2016 08:04-0400 Weight 77.57 kg Fco Durand MD [facility] Work Phone: 10-24-2015 09:52-0400 BSA (Body Surface Area) 1.98 m2 Fco Durand MD [facility] Work Phone: 08-30-2010 08:23-0400 Body Temperature 97.4 [degF] Fco Durand MD [facility] Work Phone: 08-30-2010 08:23-0400 Pulse Oximetry 100 % Fco Durand MD [facility] Work Phone: Encounters Encounter Date Encounter Type Care Provider Facility Start: 10-12-2024 ambulatory Gina Smith Facility: [facility] Start: 09-16-2024 End: 09-16-[address] Fco Durand MD [facility] Work Phone: Start: 09-16-2024 End: 09-16-[address] Gina Smith MD Work Phone: -[facility] Start: 09-16-2024 End: 09-16-2024 ambulatory Gina Smith Facility:[facility] Start: 05-10-2024 End: 05-10-[address] Gina Smith MD Work Phone: [facility] Work Phone: Start: 05-10-2024 End: 05-10-[address] Fco Durand MD -Laboratory Work Phone: Start: 05-10-2024 End: 05-10-2024 ambulatory Fco Durand Facility:[facility] Start: 03-20-2024 End: 03-20-2024 Subsequent hospital visit by physician Xr [facility] Work Phone: Radiology Comment on above: Acute cough [R05.1] Start: 03-20-2024 End: 03-20-2024 ambulatory SABRINA PORTILLO Facility:[facility] Start: 03-20-2024 End: 03-20-2024 Patient encounter procedure Dong Tse APRN.CERTIFIED TOWER CLIMBER Work Phone: [facility] Comment on above: Acute cough (Primary Dx) Start: 04-25-2023 End: 04-25-2023 ambulatory [facility] Work Phone: Start: 04-25-2023 End: 04-25-2023 Patient encounter procedure [facility] Work Phone: Start: 05-29-2022 Non-patient / Non-visit Dr. Souleymane Smith Work Phone: [facility] Start: 05-29-2022 End: 05-29-2022 Admission to same day surgery center Dr. Gina Smith Work Phone: [facility] Start: 05-29-2022 End: 05-29-[address] Gina Smith Work Phone: [facility] Work Phone: Start: 05-23-2022 End: 05-23-2022 Non-patient / Non-visit Dr. Gina Smith Work Phone: [facility] Start: 05-13-2022 End: 05-13-[address] Gina Smith Work Phone: [facility] Start: 04-22-2022 End: 04-22-[address] Gina Smith Work Phone: [facility] Start: 11-27-2021 End: 11-27-2021 ambulatory [facility] Work Phone: Start: 11-27-2021 End: 11-27-2021 Patient encounter procedure [facility], [place] Start: 10-06-2021 End: 10-07-2021 Emergency department patient visit [facility] Start: 07-24-2021 End: 07-24-[address] Gina Smith Work Phone: [facility] Start: 05-21-2021 Non-patient / Non-visit Dr. Souleymane Smith Work Phone: [facility] Start: 05-21-2021 End: 05-21-[address] Gina Smith Work Phone: [facility] Start: 04-26-2021 End: 04-26-[address] Gina Smith Work Phone: [facility] Start: 04-16-2021 End: 04-16-[address] Gina Smith Work Phone: [facility]Labor[facility] Procedures Date Procedure Procedure Detail Performing Clinician Start: 03-20-2024 Radiologic exam ches t 2 views Sabrina Portillo APRN.CNP Work Phone: Start: 05-29-2022 Repair of right ingu inal hernia using surgical mesh Dr. Gina Smith Work Phone: Start: 02-17-2022 History of repair of inguinal hernia S/P right inguinal hernia repair Start: 11-27-2021 Plain chest X-ray Start: 10-07-2021 CT of head without contrast Start: 07-24-2021 Computed tomography of abdomen and pelvis with contrast Dr. Gina Smith Work Phone: Start: 05-21-2021 Radionuclide imaging of perfusion of myocardium under exercise stress Dr. Gina Smith Work Phone: Start: 10-28-2016 End: 10-28-2016 *Hepatic [...] Fco Durand MD Start: 06-18-2016 End: 06-18-2016 CORRECTIONAL OFFICER SERGEANT Fco Durand MD Start: 06-18-2016 End: 06-18-2016 Ecg routine ecg w/least 12 lds w/i&r Fco Durand MD Start: 06-18-2016 End: 06-18-2016 Follow Up Appt 3 months Talya Green Start: 06-18-2016 End: 06-18-2016 Magnesium [Mass/volume] in Serum or Plasma Fco Durand MD Start: 06-18-2016 End: 06-18-2016 Nuclear stress test -exercise Fco Durand MD Start: 06-18-2016 End: 06-18-2016 Thyrotropin [Units/volume] in Serum or Plasma Fco Durand MD Start: 06-18-2016 End: 06-18-2016 Thyroxine (T4) [Mass/volume] in Serum or Plasma Fco Durand MD Start: 06-18-2016 End: 06-18-2016 *BMP Foc Durand MD Start: 06-18-2016 End: 06-18-2016 *CBC with Differential Fco Durand MD Start: 06-18-2016 End: 06-18-2016 CARIDAD Durand MD Start: 06-18-2016 End: 06-18-2016 Electrocardiogram, complete Fco Manning i, MD Start: 06-18-2016 End: 06-18-2016 Follow Up Appt 3 months Talya Green Start: 06-18-2016 End: 06-18-2016 Magnesium Fco Durand MD Start: 06-18-2016 End: 06-18-2016 Nuclear stress test -exercise Fco Durand MD Start: 06-18-2016 End: 06-18-2016 Thyroid stimulating [...] [AGGREGATE] Talya Green Start: 10-24-2015 End: 10-24-2015 CORRECTIONAL OFFICER SERGEANT Fco Durand MD Start: 10-24-2015 End: 10-24-2015 Follow [...] End: 05-15-2015 Nuclear stress test -exercise Fco Durand MD Start: 04-06-2015 End: 04-06-2015 CARIDAD Durand MD Start: 04-06-2015 End: 05-15-2015 Echocardiography Fco Durand MD Start: 04-06-2015 End: 04-06-2015 Follow Up Appt 6 months Talya Green Start: 04-06-2015 End: 05-15-2015 Nuclear stress test -exercise Fco Durand MD Start: 04-05-2015 End: 04-05-2015 *Hepatic Function Panel Talya Green Start: 04-05-2015 End: 04-05-2015 Lipid 1996 panel - Serum or Plasma Fco Durand MD Start: 04-05-2015 End: 04-05-2015 *Hepatic Function Panel Talya Green Start: 04-05-2015 End: 04-05-2015 Lipid panel [AGGREGATE] Talya Green Start: 10-04-2014 End: 10-04-2014 CARIDAD Durand MD Start: 10-04-2014 End: 10-05-2014 Documentation of current medications Fco Durand MD Start: 10-04-2014 End: 10-04-2014 Follow Up Appt 6 months Talya Green Start: 10-04-2014 End: 10-04-2014 CORRECTIONAL OFFICER SERGEANT Fco Durand MD Start: 10-04-2014 End: 10-05-2014 [...] 10-03-2014 End: 10-03-2014 Lipid panel [AGGREGATE] Talya rGeen Start: 04-05-2014 End: 04-05-2014 CARIDAD Durand MD Start: 04-05-2014 End: 04-06-2014 Documentation of current medications Fco Durand MD Start: 04-05-2014 End: 04-05-2014 Ecg routine ecg w/least 12 lds w/i&r Fco Durand MD Start: 04-05-2014 End: 04-05-2014 Follow Up Appt 6 months Talya Green Start: 04-05-2014 End: 04-05-2014 CORRECTIONAL OFFICER SERGEANT Fco Durand MD Start: 04-05-2014 End: 04-06-2014 Documentation [...] Start: 04-01-2014 End: 04-04-2014 Lipid panel [AGGREGATE] Talay Green Start: 04-06-2013 End: 04-06-2013 CORRECTIONAL OFFICER SERGEANT Fco Durnad MD Start: 04-06-2013 End: 04-06-2013 Follow Up [...] [AGGREGATE] Talya Green Start: 09-11-2012 End: 10-19-2015 CORRECTIONAL OFFICER SERGEANT Fco Durand MD Start: 09-11-2012 End: 10-19-2015 Follow [...] Start: 06-17-2012 End: 07-22-2012 Lipid panel [AGGREGATE] [address] Ilya Talya Durand Start: 01-27-2012 End: 10-03-2014 *Hepatic Function Panel [address] Ilya Talya Durand Start: 01-27-2012 End: 07-22-2012 Lipid 1996 panel - Serum or Plasma Fco Durand MD Start: 01-27-2012 End: 10-03-2014 *Hepatic Function Panel Fco Talya Issa Start: 01-27-2012 End: 07-22-2012 Lipid panel [AGGREGATE] [address] Talya Issa Start: 01-21-2012 End: 01-21-2012 Follow Up Appt 6 months Fco Talya Issa Start: 01-21-2012 End: 01-21-2012 Follow Up Appt 6 months Fco Talya Issa Start: 07-30-2011 End: 07-30-2011 Follow Up Appt [address] Talya Issa Start: 07-30-2011 End: 07-30-2011 Follow Up Appt 6 months Fco Talya Issa Start: 01-22-2011 End: 01-16-2012 *Hepatic Function Panel Fco Talya Issa Start: 01-22-2011 End: 01-22-2011 Follow Up Appt 6 months Fco Talya Issa Start: 01-22-2011 End: 01-16-2012 Lipid 1996 panel - Serum or Plasma Fco Durand MD Start: 01-22-2011 End: 01-16-2012 *Hepatic Function Panel [address] Henriquez Start: 01-22-2011 End: 01-22-2011 Follow Up Appt 6 months aTlya Green Start: 01-22-2011 End: 01-16-2012 Lipid panel [AGGREGATE] Talya Green Start: 06-14-2010 End: 06-21-2010 Hepatic function panel Vasquez Mcdonald Start: 06-14-2010 End: 06-21-2010 Hepatic function panel Vasquez Mcdonald Start: 12-20-1998 History of coronary artery bypass grafting H/O coronary artery bypass surgery Dr. Fco Durand MD Comment on above: CABG x 4: BROWN-LAD, Free ASHISH-RCA, Sequential Radial Artery to LCx and D1 12/20/1998 Plan of Treatment Date Care Activity Detail Author Start: 07-02-2027 Urine microalbumin profile DTaP,Tdap,Td Vaccine (2 - Td or Tdap) [facility] Start: 02-18-2024 Advance Directive Discussion Advance Directive Discussion [facility] Start: 05-29-2022 Patient discharge [facility] Start: 01-30-2021 Diabetes Screening Diabetes Screening [facility] Start: 05-06-2017 End: 05-06-2017 Appointment Appointment [facility] [employer] Work Phone: Start: 04-30-2017 End: 10-31-2016 *Hepatic Function Panel *Hepatic Function Panel [facility] Work Phone: Start: 04-30-2017 End: 10-31-2016 Lipid 1996 panel *Lipid Profile CC PCP [facility] Work Phone: Start: 04-30-2017 End: 10-31-2016 *Hepatic Function Panel *Hepatic Function Panel [facility] [employer] Work Phone: Start: 04-30-2017 End: 10-31-2016 Lipid 1996 panel *Lipid Profile CC PCP [facility] Work Phone: Start: 11-01-2016 End: 05-03-2016 *Hepatic Function Panel *Hepatic Function Panel [facility] Work Phone: Start: 11-01-2016 End: 05-03-2016 Lipid panel [AGGREGATE] *Lipid Profile CC PCP [facility] Work Phone: Start: 10-31-2016 End: 10-31-2016 CORRECTIONAL OFFICER SERGEANT CORRECTIONAL OFFICER SERGEANT [facility] Work Phone: Start: 10-31-2016 End: 10-31-2016 Follow Up Appt 6 months Follow Up Appt 6 months [facility] Work Phone: Start: 10-31-2016 End: 10-31-2016 Appointment Appointment [facility] Work Phone: Start: 10-31-2016 End: 10-31-2016 Appointment Appointment [facility] Work Phone: Start: 10-31-2016 End: 10-31-2016 CORRECTIONAL OFFICER SERGEANT CORRECTIONAL OFFICER SERGEANT [facility] Work Phone: Start: 10-31-2016 End: 10-31-2016 Follow Up Appt 6 months Follow Up Appt 6 months [facility] Work Phone: Start: 10-28-2016 End: 10-28-2016 *Hepatic Function Panel *Hepatic Function Panel [facility] Work Phone: Start: 10-28-2016 End: 10-28-2016 Lipid 1996 panel *Lipid Profile CC PCP [facility] Work Phone: Start: 10-28-2016 End: 10-28-2016 *Hepatic Function Panel *Hepatic Function Panel [facility] Work Phone: Start: 10-28-2016 End: 10-28-2016 Lipid panel [AGGREGATE] *Lipid Profile CC PCP [facility] Work Phone: Start: 06-18-2016 End: 06-18-2016 *BMP *BMP [facility] Work Phone: Start: 06-18-2016 End: 06-18-2016 *CBC with Differential *CBC with Differential [facility] Work Phone: Start: 06-18-2016 End: 06-18-2016 CORRECTIONAL OFFICER SERGEANT CORRECTIONAL OFFICER SERGEANT [facility] Work Phone: Start: 06-18-2016 End: 06-18-2016 Ecg routine ecg w/least 12 lds w/i&r EKG (In office) [facility] Work Phone: Start: 06-18-2016 End: 06-18-2016 Follow Up Appt 3 months Follow Up Appt 3 months [facility] Work Phone: Start: 06-18-2016 End: 06-18-2016 Magnesium mass conc *Magnesium [facility] Work Phone: Start: 06-18-2016 End: 06-18-2016 Nuclear stress test -exercise Nuclear stress test -exercise [facility] Work Phone: Start: 06-18-2016 End: 06-18-2016 T4 mass conc *T4 (Total) [facility] Work Phone: Start: 06-18-2016 End: 06-18-2016 Thyrotropin Qn *TSH [facility] Work Phone: Start: 06-18-2016 End: 06-18-2016 Appointment Appointment [facility] Work Phone: Start: 06-18-2016 End: 06-18-2016 *BMP *BMP [facility] Work Phone: Start: 06-18-2016 End: 06-18-2016 *CBC with Differential *CBC with Differential [facility] Work Phone: Start: 06-18-2016 End: 06-18-2016 CORRECTIONAL OFFICER SERGEANT CORRECTIONAL OFFICER SERGEANT [facility] Work Phone: Start: 06-18-2016 End: 06-18-2016 Electrocardiogram, complete EKG (In office) [facility] Work Phone: Start: 06-18-2016 End: 06-18-2016 Follow Up Appt 3 months Follow Up Appt 3 months [facility] Work Phone: Start: 06-18-2016 End: 06-18-2016 Magnesium *Magnesium [facility] Work Phone: Start: 06-18-2016 End: 06-18-2016 Nuclear stress test -exercise Nuclear stress test -exercise [facility] Work Phone: Start: 06-18-2016 End: 06-18-2016 Thyroid stimulating hormone (TSH) *TSH [facility] Work Phone: Start: 06-18-2016 End: 06-18-2016 Thyroxine (T4) *T4 (Total) [facility] Work Phone: Start: 05-03-2016 End: 05-03-2016 CORRECTIONAL OFFICER SERGEANT CORRECTIONAL OFFICER SERGEANT [facility] Work Phone: Start: 05-03-2016 End: 05-03-2016 Follow Up Appt 6 months Follow Up Appt 6 months [facility] Work Phone: Start: 05-03-2016 End: 05-03-2016 CORRECTIONAL OFFICER SERGEANT CORRECTIONAL OFFICER SERGEANT [facility] Work Phone: Start: 05-03-2016 End: 05-03-2016 Follow Up Appt 6 months Follow Up Appt 6 months [facility] Work Phone: Start: 04-22-2016 End: 05-01-2016 *Hepatic Function Panel *Hepatic Function Panel [facility] Work Phone: Start: 04-22-2016 End: 05-01-2016 Lipid 1996 panel *Lipid Profile CC PCP [facility] Work Phone: Start: 04-22-2016 End: 05-01-2016 *Hepatic Function Panel *Hepatic Function Panel [facility] Work Phone: Start: 04-22-2016 End: 05-01-2016 Lipid panel [AGGREGATE] *Lipid Profile CC PCP [facility] Work Phone: Start: 10-24-2015 End: 10-24-2015 CORRECTIONAL OFFICER SERGEANT CORRECTIONAL OFFICER SERGEANT [facility] Work Phone: Start: 10-24-2015 End: 10-24-2015 Follow Up Appt 6 months Follow Up Appt 6 months [facility] Work Phone: Start: 10-24-2015 End: 10-24-2015 CORRECTIONAL OFFICER SERGEANT CORRECTIONAL OFFICER SERGEANT [facility] Work Phone: Start: 10-24-2015 End: 10-24-2015 Follow Up Appt 6 months Follow Up Appt 6 months [facility] Work Phone: Start: 10-04-2015 End: 10-20-2015 *Hepatic Function Panel *Hepatic Function Panel [facility] Work Phone: Start: 10-04-2015 End: 10-20-2015 Lipid 1996 panel *Lipid Profile CC PCP [facility] Work Phone: Start: 10-04-2015 End: 10-20-2015 *Hepatic Function Panel *Hepatic Function Panel [facility] Work Phone: Start: 10-04-2015 End: 10-20-2015 Lipid panel [AGGREGATE] *Lipid Profile CC PCP [facility] Work Phone: Start: 04-06-2015 End: 04-06-2015 CORRECTIONAL OFFICER SERGEANT CORRECTIONAL OFFICER SERGEANT [facility] Work Phone: Start: 04-06-2015 End: 04-07-2015 Echocardiography Echocardiogram (complete) [facility] Work Phone: Start: 04-06-2015 End: 04-06-2015 Follow Up Appt 6 months Follow Up Appt 6 months [facility] Work Phone: Start: 04-06-2015 End: 04-07-2015 Nuclear stress test -exercise Nuclear stress test -exercise [facility] Work Phone: Start: 04-06-2015 End: 04-06-2015 CORRECTIONAL OFFICER SERGEANT CORRECTIONAL OFFICER SERGEANT [facility] Work Phone: Start: 04-06-2015 End: 04-07-2015 Echocardiography Echocardiogram (complete) [facility] Work Phone: Start: 04-06-2015 End: 04-06-2015 Follow Up Appt 6 months Follow Up Appt 6 months [facility] Work Phone: Start: 04-06-2015 End: 04-07-2015 Nuclear stress test -exercise Nuclear stress test -exercise [facility] Work Phone: Start: 04-05-2015 End: 04-05-2015 *Hepatic Function Panel *Hepatic Function Panel [facility] Work Phone: Start: 04-05-2015 End: 04-05-2015 Lipid 1996 panel *Lipid Profile CC PCP [facility] Work Phone: Start: 04-05-2015 End: 04-05-2015 *Hepatic Function Panel *Hepatic Function Panel [facility] Work Phone: Start: 04-05-2015 End: 04-05-2015 Lipid panel [AGGREGATE] *Lipid Profile CC PCP [facility] Work Phone: Start: 10-04-2014 End: 10-04-2014 CORRECTIONAL OFFICER SERGEANT CORRECTIONAL OFFICER SERGEANT [facility] Work Phone: Start: 10-04-2014 End: 10-04-2014 Follow Up Appt 6 months Follow Up Appt 6 months [facility] Work Phone: Start: 10-04-2014 End: 10-04-2014 CORRECTIONAL OFFICER SERGEANT CORRECTIONAL OFFICER SERGEANT [facility] Work Phone: Start: 10-04-2014 End: 10-04-2014 Follow Up Appt 6 months Follow Up Appt 6 months [facility] Work Phone: Start: 10-03-2014 End: 10-03-2014 *Hepatic Function Panel *Hepatic Function Panel [facility] Work Phone: Start: 10-03-2014 End: 10-03-2014 Lipid 1996 panel *Lipid Profile CC PCP [facility] Work Phone: Start: 10-03-2014 End: 10-03-2014 *Hepatic Function Panel *Hepatic Function Panel [facility] Work Phone: Start: 10-03-2014 End: 10-03-2014 Lipid panel [AGGREGATE] *Lipid Profile CC PCP [facility] Work Phone: Start: 04-05-2014 End: 04-05-2014 CORRECTIONAL OFFICER SERGEANT CORRECTIONAL OFFICER SERGEANT [facility] Work Phone: Start: 04-05-2014 End: 04-05-2014 Ecg routine ecg w/least 12 lds w/i&r EKG (In office) [facility] Work Phone: Start: 04-05-2014 End: 04-05-2014 Follow Up Appt 6 months Follow Up Appt 6 months [facility] Work Phone: Start: 04-05-2014 End: 04-05-2014 CORRECTIONAL OFFICER SERGEANT CORRECTIONAL OFFICER SERGEANT [facility] Work Phone: Start: 04-05-2014 End: 04-05-2014 Electrocardiogram, complete EKG (In office) [facility] Work Phone: Start: 04-05-2014 End: 04-05-2014 Follow Up Appt 6 months Follow Up Appt 6 months [facility] Work Phone: Start: 04-01-2014 End: 04-04-2014 *Hepatic Function Panel *Hepatic Function Panel [facility] Work Phone: Start: 04-01-2014 End: 04-04-2014 Glucose mass conc *Glucose, Fasting [facility] Work Phone: Start: 04-01-2014 End: 04-04-2014 Lipid 1996 panel *Lipid Profile CC PCP [facility] Work Phone: Start: 04-01-2014 End: 04-04-2014 *Hepatic Function Panel *Hepatic Function Panel [facility] Work Phone: Start: 04-01-2014 End: 04-04-2014 Glucose *Glucose, Fasting [facility] Work Phone: Start: 04-01-2014 End: 04-04-2014 Glucose mass conc *Glucose, Fasting [facility] Work Phone: Start: 04-01-2014 End: 04-04-2014 Lipid panel [AGGREGATE] *Lipid Profile CC PCP [facility] Work Phone: Start: 04-06-2013 End: 04-06-2013 CORRECTIONAL OFFICER SERGEANT CORRECTIONAL OFFICER SERGEANT [facility] Work Phone: Start: 04-06-2013 End: 04-06-2013 Follow Up Appt 1 year Follow Up Appt 1 year [facility] Work Phone: Start: 04-06-2013 End: 04-06-2013 CORRECTIONAL OFFICER SERGEANT CORRECTIONAL OFFICER SERGEANT [facility] Work Phone: Start: 04-06-2013 End: 04-06-2013 Follow Up Appt 1 year Follow Up Appt 1 year [facility] Work Phone: Start: 12-18-2012 End: 04-07-2013 *Hepatic Function Panel *Hepatic Function Panel [facility] Work Phone: Start: 12-18-2012 End: 10-19-2015 Glucose mass conc *Glucose, Fasting [facility] Work Phone: Start: 12-18-2012 End: 04-07-2013 Lipid 1996 panel *Lipid Profile CC PCP [facility] Work Phone: Start: 12-18-2012 End: 04-07-2013 *Hepatic Function Panel *Hepatic Function Panel [facility] Work Phone: Start: 12-18-2012 End: 10-19-2015 Glucose *Glucose, Fasting [facility] Work Phone: Start: 12-18-2012 End: 10-19-2015 Glucose mass conc *Glucose, Fasting [facility] Work Phone: Start: 12-18-2012 End: 04-07-2013 Lipid panel [AGGREGATE] *Lipid Profile CC PCP [facility] Work Phone: Start: 09-11-2012 End: 10-19-2015 CORRECTIONAL OFFICER SERGEANT CORRECTIONAL OFFICER SERGEANT [facility] Work Phone: Start: 09-11-2012 End: 10-19-2015 Follow Up Appt 6 months Follow Up Appt 6 months [facility] Work Phone: Start: 09-11-2012 End: 10-19-2015 CORRECTIONAL OFFICER SERGEANT CORRECTIONAL OFFICER SERGEANT [facility] Work Phone: Start: 09-11-2012 End: 10-19-2015 Follow Up Appt 6 months Follow Up Appt 6 months [facility] Work Phone: Start: 06-17-2012 End: 07-22-2012 *Hepatic Function Panel *Hepatic Function Panel [facility] Work Phone: Start: 06-17-2012 End: 07-22-2012 Lipid 1996 panel *Lipid Profile [facility] Work Phone: Start: 06-17-2012 End: 07-22-2012 *Hepatic Function Panel *Hepatic Function Panel [facility] Work Phone: Start: 06-17-2012 End: 07-22-2012 Lipid panel [AGGREGATE] *Lipid Profile [facility] Work Phone: Start: 01-27-2012 End: 10-03-2014 *Hepatic Function Panel *Hepatic Function Panel [facility] Work Phone: Start: 01-27-2012 End: 07-22-2012 Lipid 1996 panel *Lipid Profile [facility] Work Phone: Start: 01-27-2012 End: 10-03-2014 *Hepatic Function Panel *Hepatic Function Panel [facility] Work Phone: Start: 01-27-2012 End: 07-22-2012 Lipid panel [AGGREGATE] *Lipid Profile [facility] Work Phone: Start: 01-21-2012 End: 01-21-2012 Follow Up Appt 6 months Follow Up Appt 6 months [facility] Work Phone: Start: 01-21-2012 End: 01-21-2012 Follow Up Appt 6 months Follow Up Appt 6 months [facility] Work Phone: Start: 07-30-2011 End: 07-30-2011 Follow Up Appt 6 months Follow Up Appt 6 months [facility] Work Phone: Start: 07-30-2011 End: 07-30-2011 Follow Up Appt 6 months Follow Up Appt 6 months [facility] Work Phone: Start: 01-23-2011 Shingrix Vaccine (2 of 3) Shingrix Vaccine (2 of 3) [facility] Start: 01-22-2011 End: 01-16-2012 *Hepatic Function Panel *Hepatic Function Panel [facility] Work Phone: Start: 01-22-2011 End: 01-22-2011 Follow Up Appt 6 months Follow Up Appt 6 months [facility] Work Phone: Start: 01-22-2011 End: 01-16-2012 Lipid 1996 panel *Lipid Profile [facility] Work Phone: Start: 01-22-2011 End: 01-16-2012 *Hepatic Function Panel *Hepatic Function Panel [facility] Work Phone: Start: 01-22-2011 End: 01-22-2011 Follow Up Appt 6 months Follow Up Appt 6 months [facility] Work Phone: Start: 01-22-2011 End: 01-16-2012 Lipid panel [AGGREGATE] *Lipid Profile [facility] Work Phone: Start: 06-14-2010 End: 06-21-2010 Hepatic function panel *Liver/Hepatic Function Panel [facility] Work Phone: Start: 06-14-2010 End: 06-21-2010 Hepatic function panel *Liver/Hepatic Function Panel [facility] Work Phone: Start: 1962 Annual PCP Team Chronic Disease Visit Annual PCP Team Chronic Disease Visit [facility] Start: 1963 Anxiety Screening Anxiety Screening [facility] Start: 1963 BP Controlled (<130/80) BP Controlled (<130/80) [facility] Start: 1962 Depression Screening Depression Screening [facility] Electrocardiographic procedure [facility] Patient Education [facility] Work Phone: Patient referral [facility] Work Phone: Radionuclide imaging of perfusion of myocardium under exercise stress [facility] Immunizations Immunization Date Immunization Notes Care Provider Ruby guo 10-29-2017 influenza, high dose seasonal, preservative-free Dong Tse APRN.CERTIFIED TOWER CLIMBER Work Phone: [facility] 07-01-2017 tetanus toxoid, redu aimee diphtheria toxoid, and acellular pertussis vaccine, adsorbed Dong Tse CLINICAL MANAGER.CERTIFIED TOWER CLIMBER Work Phone: [facility] 11-23-2011 influenza virus vacc ine, unspecified formulation Dong Tse CLINICAL MANAGER.CERTIFIED TOWER CLIMBER Work Phone: [facility] 04-15-2011 hepatitis B immune globulin Dong Tse CLINICAL MANAGER.CERTIFIED TOWER CLIMBER Work Phone: [facility] 03-13-2011 hepatitis B immune globulin Dong Tse CLINICAL MANAGER.CERTIFIED TOWER CLIMBER Work Phone: [facility] 11-28-2010 influenza virus vacc ine, unspecified formulation Dong Tse CLINICAL MANAGER.CERTIFIED TOWER CLIMBER Work Phone: [facility] 11-28-2010 zoster vaccine, live Dong Tse CLINICAL MANAGER.CERTIFIED TOWER CLIMBER Work Phone: [facility] 07-23-2010 pneumococcal polysaccharide vaccine, 23 valent Dong Tse CLINICAL MANAGER.CERTIFIED TOWER CLIMBER Work Phone: [facility] 11-20-2009 influenza virus vacc ine, unspecified formulation Dong Tse CLINICAL MANAGER.CERTIFIED TOWER CLIMBER Work Phone: [facility] 12-23-2006 influenza virus vacc ine, unspecified formulation Dong Tse CLINICAL MANAGER.CERTIFIED TOWER CLIMBER Work Phone: [facility] 12-30-2005 influenza virus vacc ine, unspecified formulation Dong Tse CLINICAL MANAGER.CERTIFIED TOWER CLIMBER Work Phone: [facility] Work Phone: 12-25-2004 influenza virus vacc ine, unspecified formulation Dong Tse CLINICAL MANAGER.CERTIFIED TOWER CLIMBER Work Phone: [facility] Work Phone: Payers Date Payer Category Payer Self-pay [id number] 2024 Medicare [employer] MEDICARE A ETNA MEDICARE PPO [id number] 2024-Present [phone] [address] [place] [address] PPO [id number] 2023 Private Health Insurance [id number] 2023 Unknown [id number] 2009 Medicare [id number] Unknown [id number] Unknown [id number] Unknown [id number] Unknown [id number] Social History Date Type Detail Facility Start: 04-26-2021 End: 07-12-2022 Tobacco smoking status MTIS Unknown if ever smoked [facility] Start: 1945 Sex Assigned At Male [facility] Start: 07-12-2022 End: 03-20-2024 Tobacco smoking status NHIS Never smoked tobacco [facility] Start: 03-20-2024 Tobacco use and exposure Smokeless tobacco non-user [facility] Start: 03-20-2024 Alcoholic beverage intake Current non-drinker of alcohol (finding) [facility] Start: 01-23-2020 End: 03-20-2024 History of Social function [facility] Start: 01-23-2020 End: 03-20-2024 Tobacco use panel [facility] Adult Depression Screening Assessment 0 [facility] Start: 1945 Sex assigned at Not on file [facility] Start: 05-17-2024 Sex Male (finding) [facility] Medical Equipment Procedure Code Equipment Code Equipment Origin al Text Equipment Identifier Dates Repair, hernia, inguinal, with mesh insertion ([id number]) Extra-gynaecologic al surgical mesh, synthetic polymer, non-bioabsorbable [id number] FDA Start: 05-29-2022 Goals Date Patient Goal Desired Activity /State Functional Status Date Assessment Result Facility 05-29-2022 Functional status Ambulates [facility] Work Phone: Mental Status Date Assessment Result Facility 05-29-2022 Cognitive function Voice/Name [facility] Work Phone: Clinical Notes 12-20-1998 to 09-16-2024 Note Date & Type Note Facility 09-16-2024 Evaluation note Diagnosis Onset Date Resolution Hyperlipidemia chronic September 16, 2024 9:08am H/O coronary artery bypass surgery December 20, 1998 resolved September 16, 2024 9:08am [facility] Work Phone: 1(679) 822-941802-01-2025 History of Present illness Narrative* Lizet Arreola Tech - 03/20/2024 9:30 AM EST Radiology Service Progress Note PATIENT NAME: Les Wang DATE OF SERVICE: March 20, 2024 TIME: 9:36 AM PATIENT IDENTITY VERIFICATION COMPLETED USING TWO (2) IDENTIFIERS: Name and Date of confirmedby patient verbally. FALL SCREENING: Has the patient had 2 falls in the last year or 1 fall with injury or currently using an Ambulatory Assistive Device (Walker, Cane, Wheelchair, Crutches, etc.)? No PATIENT GENDER DATA: Assigned male at PATIENT RELEVANT IMPLANT DATA REVIEWED: Not Applicable PATIENT PRESENTS WITH AN IMPLANTABLE OR ATTACHED REHEAT FURNACE OPERATOR: No RADIOLOGY DEPARTMENT: General X-ray: Exam(s) Completed: Chest X-Ray PERIPHERAL IV DATA: Not applicable SIGNED BY: Naldo Rahman March 20, 2024 9:36 AM [facility] NoteHNO ID: [id number] Author: LIZET ARREOLA Tech Service: ? Author Type: Technologist Type: Progress Notes Filed: 03/20/2024 09:36 Note Text: Radiology Service Progress Note PATIENT NAME: Les Wang DATE OF SERVICE: March 20, 2024 TIME: 9:36 AM PATIENT IDENTITY VERIFICATION COMPLETED USING TWO (2) IDENTIFIERS: Name and Date of confirmed by patient verbally. FALL SCREENING: Has the patient had 2 falls in the last year or 1 fall with injury or currently using an Ambulatory Assistive Device (Walker, Cane, Wheelchair, Crutches, etc.)? No PATIENT GENDER DATA: Assigned male at PATIENT RELEVANT IMPLANT DATA REVIEWED: Not Applicable PATIENT PRESENTS WITH AN IMPLANTABLE OR ATTACHED REHEAT FURNACE OPERATOR: No RADIOLOGY DEPARTMENT: General X-ray: Exam(s) Completed: Chest X-Ray PERIPHERAL IV DATA: Not applicable SIGNED BY: Naldo Rahman March 20, 2024 9:36 [facility]02-01-2025 NoteHNO ID: [id number] Author: SABRINA PORTILLO APRN.CERTIFIED TOWER CLIMBER Service: ? Author Type: Nurse Practitioner Type: Progress Notes Filed: 03/20/2024 09:42 Note Text: CC: Patient presents with: Cough: Chest congestion, fever x 1 week HPI: Les Wang is a 78 year old male who presents to the office with complaint of chest congestion, cough productive, and fever for a week. Symptoms are improving. Associated symptoms includes cough. Denies wheezing, dyspnea, nausea, vomiting , and diarrhea. Treatments tried include OTC cold medicine with no relief of symptoms. Sick contacts: unknown. History of asthma, frequent episodes of bronchitis, chronic bronchitis, bronchiectasis or COPD: No Smoker: No Seasonal/environmental allergies: No The ROS is otherwise negative. The patient's pmh, medications, allergies, and past visits are reviewed. PHYSICAL EXAM: BP 110/82 Pulse 97 Temp (!) 38.3 ?C (101 ?F) Resp 20 Wt 79.5 kg (175 lb 4.3 oz) SpO2 96% BMI 24.44 kg/m? General appearance: alert, cooperative, pleasant, in no acute distress Head: Normocephalic Eyes: EOM's intact, conjunctiva pink and moist, no icterus, sclera white, non-injected Ears: Right ear: External ear/canal- Normal, TM - clear with good landmarks. Left ear: External ear/canal- Normal, TM - clear with good landmarks Oropharynx:moist without lesions, No erythema, exudates or tonsillar hypertrophy. Uvula midline Neck:supple and no adenopathy Heart: Negative. RRR without obvious murmur, gallop, or rubs. No ectopy. Lungs: clear to auscultation, without rales or wheeze, good air exchange PAST MEDICAL HISTORY Diagnosis Date Acute appendicitis Atrial fibrillation (HCC) Had after CABG; no recurrence Internal hemorrhoids without mention of complication Kidney stones none for over 10 years now as of 07/23/2010 Unspecified cardiovascular disease s/p bypass PAST SURGICAL HISTORY Procedure Laterality Date CABG, ARTERIAL, FOUR+ 1998 COLONOSCOPY FLX DX W/COLLJ SPEC WHEN PFRMD 06/23/12 Colonoscopy LAPAROSCOPIC APPENDECTOMY 09/19/10 Ruptured ALLERGIES Patient has no known allergies. MEDICATIONS VIAGRA 50 mg tablet Take one(1) tablet daily as needed. Do not substitute with generic Aspirin 81 mg ORAL Tab Take 1 tablet by mouth once daily. lisinopril 5 mg ORAL tablet Take 1 tablet by mouth once daily. LIPITOR 10 MG ORAL TAB Take one(1) tablet daily. THERAPEUTIC MULTIVITAMIN ORAL TAB Take one(1) tablet daily. VITAMINS AND MINERALS ORAL TAB b6 and b12 qd FAMILY HISTORY Problem Relation Age of Onset Coronary Artery Disease Father Social History Tobacco Use Smoking status: Never Smokeless tobacco: Never Substance Use Topics Alcohol use: No Drug use: No ASSESSMENT/PLAN: 1. Acute cough - ICD9: 786.2, ICD10: R05.1 - XR CHEST 2V FRONTAL/LAT * * * * Physician Interpretation * * * * EXAMINATION: CHEST RADIOGRAPH (2 VIEW FRONTAL AND LATERAL) CLINICAL HISTORY: Acute cough MQ: [id number] EXAM DATE/TIME: 03/20/2024 9:35 AM COMPARISON: No relevant prior studies available. RESULT: Lines, tubes, and devices: None. Lungs and pleura: No consolidation. No lung mass. No pleural effusion. No pneumothorax. Cardiomediastinal silhouette: Normal cardiomediastinal silhouette. Bones and soft tissues: Status post median sternotomy with normally aligned sternal wires. IMPRESSION IMPRESSION: No acute radiographic abnormality. Telecom Engineer: [place] Transcribe Date/Time: Mar 20 2024 9:36A Dictated by : LINDSEY ASHFORD MD Supportive care at this time. Potential red flag symptoms discussed with the patient. Reviewed appropriate action plan to take if red flag symptoms occur. Patient agreeable to treatment plan. Sabrina Portillo APRN.[facility]02-01-2025 History of Present illness Narrative* Sabrina Portillo APRN.[facility] - 03/20/2024 9:24 AM EST CC: Patient presents with: Cough: Chest congestion, fever x 1 week HPI: Les Wang is a 78 year old male who presents to the office with complaint of chest congestion, cough productive, and fever for a week. Symptoms are improving. Associated symptoms includes cough. Denies wheezing, dyspnea, nausea, vomiting , and diarrhea. Treatments tried include OTC cold medicine with no relief of symptoms. Sick contacts: unknown. History of asthma, frequent episodes of bronchitis, chronic bronchitis, bronchiectasis or COPD: No Smoker: No Seasonal/environmental allergies: No The ROS is otherwise negative. The patient's pmh, medications, allergies, and past visits are reviewed. PHYSICAL EXAM: BP 110/82 Pulse 97 Temp (!) 38.3 C (101 F) Resp 20 Wt 79.5 kg (175 lb 4.3 oz) SpO2 96% BMI 24.44 kg/m General appearance: alert, cooperative, pleasant, in no acute distress Head: Normocephalic Eyes: EOM's intact, conjunctiva pink and moist, no icterus, sclera white, non-injected Ears: Right ear: External ear/canal- Normal, TM - clear with good landmarks. Left ear: External ear/canal- Normal, TM - clear with good landmarks Oropharynx:moist without lesions, No erythema, exudates or tonsillar hypertrophy. Uvula midline Neck:supple and no adenopathy Heart: Negative. RRR without obvious murmur, gallop, or rubs. No ectopy. Lungs: clear to auscultation, without rales or wheeze, good air exchange PAST MEDICAL HISTORY Diagnosis Date Acute appendicitis Atrial fibrillation (HCC) Had after CABG; no recurrence Internal hemorrhoids without mention of complication Kidney stones none for over 10 years now as of 07/23/2010 Unspecified cardiovascular disease s/p bypass PAST SURGICAL HISTORY Procedure Laterality Date CABG, ARTERIAL, FOUR+ 1998 COLONOSCOPY FLX DX W/COLLJ SPEC WHEN PFRMD 06/23/12 Colonoscopy LAPAROSCOPIC APPENDECTOMY 09/19/10 Ruptured ALLERGIES Patient has no known allergies. MEDICATIONS VIAGRA 50 mg tablet Take one(1) tablet daily as needed. Do not substitute with generic Aspirin 81 mg ORAL Tab Take 1 tablet by mouth once daily. lisinopril 5 mg ORAL tablet Take 1 tablet by mouth once daily. LIPITOR 10 MG ORAL TAB Take one(1) tablet daily. THERAPEUTIC MULTIVITAMIN ORAL TAB Take one(1) tablet daily. VITAMINS & MINERALS ORAL TAB b6 and b12 qd FAMILY HISTORY Problem Relation Age of Onset Coronary Artery Disease Father Social History Tobacco Use Smoking status: Never Smokeless tobacco: Never Substance Use Topics Alcohol use: No Drug use: No ASSESSMENT/PLAN: 1. Acute cough - ICD9: 786.2, ICD10: R05.1 - XR CHEST 2V FRONTAL/LAT * * * * Physician Interpretation * * * * EXAMINATION: CHEST RADIOGRAPH (2 VIEW FRONTAL & LATERAL) CLINICAL HISTORY: Acute cough MQ: XC2_6 EXAM DATE/TIME: 03/20/2024 9:35 AM COMPARISON: No relevant prior studies available. RESULT: Lines, tubes, and devices: None. Lungs and pleura: No consolidation. No lung mass. No pleural effusion. No pneumothorax. Cardiomediastinal silhouette: Normal cardiomediastinal silhouette. Bones and soft tissues: Status post median sternotomy with normally aligned sternal wires. IMPRESSION IMPRESSION: No acute radiographic abnormality. Telecom Engineer: [place] Transcribe Date/Time: Mar 20 2024 9:36A Dictated by : LINDSEY ASHFORD MD Supportive care at this time. Potential red flag symptoms discussed with the patient. Reviewed appropriate action plan to take if red flag symptoms occur. Patient agreeable to treatment plan. Sabrina Portillo APRN.CNP [facility] Reyes [facility] May 29, 2022 12:56pm Note Date/Time May 29, 2022 12: 56pm [facility] Medical Records Department [address] [place] [address] Instructions for Home/Discharge Instructions 05/29/22 1254 MR#: [id number] Acct: [id number] Name: LES WANG Rep #:[id number] : 1945 76 From: Dana Reyes MD PCP: Dr. Gina Smith MD Status:REG [facility] Discharge Instructions Diet Discharge Diet: Light diet - advance as tolerated Activity Discharge Activity: May Not Drive (while taking narcotic pain medications.) May shower in (days): 1 Lifting Restrictions: no lifting >20 lbs x 2 wks, no strenuous exercise for 4 wks Additional Activity Instructions:: Recommend jockstrap or briefs instead of boxers initially Dressing / Incision Call your doctor if your incision/area has: Continuous Slow Oozing, Sudden Increased Bleeding, Increased Pain/ Swelling, Increased Redness, Foul Smelling Discharge and Swelling at the incision site Call your doctor if you observe: Fever of 101 or Higher Remove Dressing in: 2 days Cleanse incision/area with: Soap & Water Additional Dressing/Incision Instructions:: Steri-Strips will fall off in 7 to 10 days, if they do not fall off okay to remove after 10 days. Follow Up Care Please Follow Up With: Dana Reyes MD When: Call the office for a follow-up appointment 2 weeks; after 5 PM and on call [phone] with any concerns. Test Results: Test results from this visit will be discussed in further detail at your follow- up appointment, if applicable. Discharge Plan Admission Attending Provider: Dana Reyes Primary Care Provider: Gina Smith Discharge Orders/Prescriptions Prescriptions: New hydrocodone-acetaminophen 5-325 mg tablet 1 tab PO Q6H PRN (Reason: pain) 3 Days Qty: 10 0RF Continued vitamin B12 500 mcg-folic acid 400 mcg tablet 500-400 mcg tablet 1 tab PO QDAY multivitamin tablet 1 tab PO QDAY sildenafil [Viagra] 50 mg tablet 50 mg PO QDAY PRN (Reason: other) lorazepam 1 mg tablet 0.25 mg PO DAILY Label Comments: 1 mg PO 1/4 tablet PRN pyridoxine (vitamin B6) 50 mg capsule 50 mg capsule 100 mg PO QDAY tamsulosin 0.4 mg capsule 0.4 mg PO DAILY Qty: 14 0RF atorvastatin 10 mg tablet 10 mg PO QDAY Qty: 90 4RF losartan 25 mg tablet 25 mg PO DAILY Qty: 90 3RF Held aspirin 81 mg tablet,delayed release (DR/EC) 81 mg PO DAILY Hold Instructions: Resume on 05/31/22. Other Ambulatory Orders: 12 Lead EKG (Routine) Timeframe: 20220523 Location: None Selected Ordered By: Dr. James Palma Referrals / Follow Up: Gina Smith MD [Primary Care Provider] - Disposition Disposition (needs filled in before D/C Order can be placed): Home, Self Care 05/29/22 1256<Electronically signed by Dana Reyes MD>Dana Reyes MD CC: Dr. Gina Smith MD ~ Signed [facility] Work Phone: [phone]) 521-967004-12-2023 History and physical note Author Dr. Reyes [facility] May 29, 2022 11:11am Note Date/Time May 29, 2022 11: 10am [facility] Medical Records Department [address] [place] [address] History & Physical Exam 05/29/22 1110 MR#: [id number] Acct: [id number] Name: LES WANG Rep #:[id number] : 1945 76 From: Dana Reyes MD PCP: Dr. Gina Smith MD Status:[facility] Location: [place] [address] History and Physical Date of Admission: 05/29/22 Date of Service:? 05/13/22 MR#: [id number] Acct: [id number] Name:LES GILBERT Rep #: [id number] : 1945 ? ? Provider: Dr. Dana Reyes MD Age/Sex:? 76/M ? ? Location: [facility] Status: Signed Intake Vital Signs ? 10/06/2222:58 05/13/2312:44 Height 5 ft 10 in ? Weight: 170 lb 174 lb BMI 24.3 ? BP 144/82 H 131/72 H Blood Pressure Location ? Rt femoral Position ? Sitting Respiration 17 16 Pulse 66 116 H Pulse Source ? Monitor Temp 98.2 F 97 F L Temp Source Temporal Temporal Pulse Oximetry (%) 99 97 Oxygen Delivery Method ? room air Intake Visit Reasons:?Hernia Chief Complaint: hernia [employer] Makeup Artist Required: No Is patient in pain?: No Allergies lisinopril Adverse Reaction (Intermediate, Verified 10/06/21 23:57) Dry Cough Medications multivitamin 1 tab PO QDAY 05/05/17 [History Confirmed 05/13/22] sildenafil 50 mg tablet (Viagra) 50 mg PO QDAY PRN other 05/05/17 [History Confirmed 05/13/22] vitamin B12 500 mcg-folic acid 400 mcg tablet 1 tab PO QDAY 05/05/17 [History Confirmed 05/13/22] aspirin 81 mg tablet,delayed release 81 mg PO DAILY 07/30/19 [History Confirmed 05/13/22] lorazepam 1 mg tablet 0.25 mg PO DAILY 07/30/19 [History Confirmed 05/13/22] pyridoxine (vitamin B6) 50 mg capsule (Vitamin B-6) 50 mg PO QDAY 07/30/19 [History Confirmed 05/13/22] atorvastatin 10 mg tablet 10 mg PO QDAY #90 tabs 10/15/21 [Rx Confirmed 05/13/22] losartan 25 mg tablet 25 mg PO DAILY #90 tabs 04/24/22 [Rx Confirmed 05/13/22] PFSH Medical History?(Updated 05/14/22 @ 09:[address] Dana Reyes MD) Atherosclerotic heart disease of [place] coronary artery without angina pectoris Enlarged prostate History of kidney stones Hyperlipidemia Kidney stones Renal calculi Surgical History? H/O coronary artery bypass surgery (12/20/98) History of appendectomy History of cataract surgery History of left heart catheterization (12/11/98) History of tonsillectomy Status post Mohs surgery (04/2017) Family History? Father?? ,? age 78 of [place] CAD (coronary artery disease) Myocardial infarctionMother?? ,? Age 97 ?? No problems noted. Brother?? ,? age 39 from [place] CAD (coronary artery disease) Myocardial infarction Sudden cardiac deathBrother?? ,? Age 70 heart related, hx CABG CAD (coronary artery disease) history of CABG Social History? Smoking Status:? Never smoker alcohol intake:? current alcohol intake frequency: a few times a week Alcohol type: wine substance use type:? does not use caffeine:? Yes Type: carbonated beverages and coffee what type of physical activity do you participate in:? walking frequency:? 3-4 times per week duration:? 45-60 minutes/day seatbelt use:? always do you feel safe at home:? Yes HPI HPI HPI: 76-year-old male presents due to right renal hernia.? Patient states he has noticed it for about the last 2 weeks gotten larger.? Patient denies any pain.? Patient states that there is a bulge and it does come right back if he pushes itin.? Patient did previously have a laparoscopic appendectomy for perforated appendicitis by Dr. Kelley 10 to 15 years ago.? Patient's have a trip planned for [place] September 21, 2022.? They are concerned as it was becoming more noticeable/larger interested in getting it fixed prior to the trip. ROS General General: No weight change, appetite, fatigue, colon cancer, breast cancer or weakness HEENT HEENT: No difficulty swallowing, eye injury, eye surgery, swollen glands or hoarseness Endo Endocrine: No thyroid disease, diabetes mellitus, thyroid cancer, Hair loss, heat intolerance or cold intolerance Skin Skin: No rash or changing moles Breast Breast: No left breast lump, right breast lump, nipple discharge, breast pain, abnormal mammogram, abnormal US or breast enlargement Musc Musculoskeletal: No back problems, arthritis, rheumatoid arthritis, gout or joint pain Cardio Cardiovascular: No murmur, pacemaker, heart disease, atrial fibrillation, high blood pressure, heart attack, heart stent, palpitations, shortness of breat withexertion or chest pain Psych Psychiatric: No depression, anxiety or hearing voices Resp Respiratory: No shortness of breath, No sleep apnea, No cough, No COPD, No asthma, No emphysema and No wheezing Gastro Gastrointestinal: No abdominal pain, No nausea or vomiting, No diarrhea, No constipation, No blood in stool, No acid reflux, No hemorrhoids, No ulcers, No gallbladder problem and No black,tarry stools [place] Hematologic: No blood thinners, No blood disorders, No bleeding, No anemia and No blood clots Neuro Neurologic: No system reviewed and no additional complaints, except as documented, No as per HPI, No abnormal gait, No abnormal hearing, No abnormal movements, No abnormal speech, No behavioral changes, No burning sensations, No confusion, No convulsions, No disequilibrium, No dizziness, No localized weakness, No frequent falls, No headache(s), No lack of coordination, No loss ofvision, No memory loss, No numbness, No other visual disturbances, No radicular pain, No restless legs, No sensory deficit, No syncope, No tingling, No tremor(s), No weakness and No other Exam Const General: cooperative, healthy appearing and no acute distress [facility] Head: normal to inspection Resp Effort & Inspection: normal respiratory effort Cardio Rate: regular rate GI Inspection: non-distended Palpation: soft, no guarding, hernia (Right inguinal likely indirect, reducible)and nontender Skin General: no rashes or lesions noted Neuro General: patient oriented x3 Extrem General: no clubbing, cyanosis or edema Psych Affect: normal affect Assessment and Plan Assessment and Plan (1) Right inguinal hernia: ?Status:?Acute Plan Plan to do a right inguinal hernia repair with mesh. Reviewed the procedure withthe patient including the risks, including but not limited to infection, bleeding, paresthesia, chronic pain, injury to small bowel or contents of the spermatic cord, and recurrence. All questions were answered.? Patient and his had no further question this time. Dana Reyes M.D. Pager: [phone] [facility] [address] [place] [address], [address] [place] [address] Office: [phone] Coding Level of Care Code Off vis,new,level 3 Diagnoses Right inguinal hernia? K40.90 05/15/22 1237 <Electronically signed by Dana Reyes MD> Date Dana Reyes MD 05/29/22 1110 <Electronically signed by Dana Reyes MD> Cosigner Signature (if applicable): CC: Dr. Gina Smith MD; Dr. Dana Reyes MD~ Signed ADDENDUM by Dr. Dana Reyes MD on 05/29/22 at 1111 Addendum I have examined the patient and the H&P has been reviewed. There are no clinicalchanges since date of exam. 05/29/22 1111<Electronically signed by Dana Reyes MD> Cosigner Signature (if applicable): cc: Dr. Gina Smith MD; Dr. 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, 1998 resolved [facility] Work Phone: Evaluation noteNo assessment information available [facility] Work Phone: Evaluation note* Diagnosis Onset Date Resolution Status Right inguinal hernia acute [facility] Work Phone: Evaluation note* Diagnosis Acute cough- Primary Acute cough [facility] Diagnosis Acute cough documented in this encounter [facility] for referral (narrative)No reason for referral information availableWMagruder [facility] Work Phone: Chief Complaint and Reason for Visit Chief Complaint INT LABS/ORDER 1 Y FU S/P CABG LUMPHADENOPATHY Reason for Visit Hyperlipidemia H/O coronary artery bypass surgery Chief Complaint LUMPHADENOPATHY FALL Chief Complaint FALL COUGH Chief Complaint Hernia PREOP RT INGUINAL HERNIA W MESH RT INGUINAL HERNIA W MESH Reason for Visit Right inguinal herni a Chief Complaint Admit Date NEEDS ORDER FOR RADHA May 10, 2024 8:51am Chief Complaint Admit Date 1 Y FU September 16, 2024 9:08 am Reason for Visit Admit Date Hyperlipidemia September 16, 2024 9:08 am H/O coronary artery bypass surgery September 16, 2024 9:08am Family History No Family History Records Found Relationship Condition Age at Onset Recorded Date/T jg father Coronary artery disease Unknown Myocardial infarction Unknown brother Coronary artery disease Unknown Sudden cardiac Unknown Unknown Advance Directives No Advanced Directives Records Found Advance Directive Response Recorded Date/ Time Living Will Yes April 24, 2020 12:59pm Power of Recycling Program Manager Yes April 24 12:59pm Advance Directive Response Recorded Date/ Time Name of Medical Power of Recycling Program Manager October 07, 2021 12:01am Living Will Yes October 07 12:01am Power of Recycling Program Manager Yes October 07, 12:01am Advance Directive Response Recorded Date/ Time Living Will Yes October 07 12:01am Power of Recycling Program Manager Yes October 07, 022 12:01am Name of Medical Power of Recycling Program Manager October 07, 2021 12:01am Advance Directive Response Recorded Date/ Time Name of Medical Power of Recycling Program Manager May 22, 2022 8:57am Living Will Yes May 22, 2022 8:57am Power of Recycling Program Manager Yes May 22 8:57am Advance Directive Response Recorded Date/ Time Living Will Yes May 22, 2022 8:57am Power of Recycling Program Manager Yes May 22 8:57am Documents on File Type Date Recorded Patient [employer] Teacher Expl anation Advance Directive(s) 07/31/2010 Advance Directive(s) 04/04/2006 Advance Directive Response Recorded Date/ Time Living Will Yes May 22, 2022 8:57am Do you have a Healthcare Power of Recycling Program Manager? Yes May 22, 2022 8:57am Summary Purpose Additional Source Comments Goals (unrecognized section and content) Goals may be documented in a n alternate sectionGoals may be documented in an alternate sectionGoals may be documented in an alternate sectionGoals may be documented in an alternate sectionGoals may be documented in an alternate sectionGoals may be documented in an alternate sectionGoals may be documented in an alternate section Care Teams (unrecognized sec tion and content) Team Status: Active Member Role Status Dates Dr. Kesha Cochran MD Family Provider Active Dr. Gina Smith MD Primary Care Provider Active Team Status: Inactive Member Role Status Dates Dr. Gina Smith MD Primary Care Provider, Referrin g Provider Active Dr. Dana Reyes MD Attending Provider Active Team Status: Active Member Role Status Dates Dr. Gina Smith MD Primary Care Provider Active Dr. Wilberto Robert MD Attending Provider Active Dr. James Palma MD Referring Provider Active Team Status: Active Member Role Status Dates Dr. Gina Smith MD Primary Care Provider Active Dr. Dana Reyes MD [facility], Referring Provider, Other Provider Active Team Status: Inactive Member Role Status Dates Dr. Gina Smith MD Primary Care Provider Active Dr. Addison Ragsdale MD Attending Provider, Referr ing Provider Active Team Status: Inactive Member Role Status Dates Dr. Gina Smith MD Primary Care Provider Active Dr. Dana Reyes MD Attending Provider, Referring Provider Active Team Status: Inactive Member Role Status Dates Dr. Gina Smith MD Primary Care Provider Active Start: May 10, 2024 End: May 10, 2024 Dr. Fco Durand MD Attending Provider Active S tart: May 10, 2024 End: May 10, 2024 Dr. Fco Durand MD Referring Provider Active S tart: May 10, 2024 End: May 10, 2024 Dr. Addison Ragsdale MD Other Provider Active Start: May 10, 2024 End: May 10, 2024 Team Status: Active Member Role/Relationship Status Dates Dr. Gina Smith MD Primary Care Provider Active Team Status: Inactive Member Role/Relationship Status Dates Dr. Gina Smith MD Primary Care Provider Active Start: September 16, 2024 End: September 16, 2024 Dr. Gina Smith MD Referring Provider Active Start: September 16, 2024 End: September 16, 2024 Dr. Fco Durand MD Attending Provider Active S tart: September 16, 2024 End: September 16, 2024 Team Status: Inactive Member Role/Relationship Status Dates Dr. Gina Smith MD Primary Care Provider Active Start: September 16, 2024 End: September 16, 2024 Dr. Fco Durand MD Attending Provider Active S tart: September 16, 2024 End: September 16, 2024 Dr. Fco Durand MD Referring Provider Active S tart: September 16, 2024 End: September 16, 2024 Source Comments (unrecognize d section and content) In the event this informatio n is protected by the Federal Confidentiality of Alcohol and Drug Abuse Patient Records regulations: The Federal rules restrict any use of the information to criminally investigate or prosecute any alcohol or drug abuse patient.[facility] the event this information is protected by the Federal Confidentiality of Alcohol and Drug Abuse Patient Records regulations: The Federal rules restrict any use of the information to criminally investigate or prosecute any alcohol or drug abuse patient.[facility] Reason for Visit (unrecogniz ed section and content) Reason Comments Cough Chest congestion, fe michi x 1 week (unrecognized sect ion and content) No Status Records FoundNo Status Records Found INFORMATION SOURCE (unrecogn ized section and content) DATE CREATED AUTHOR 03/22/2024 [facility] DATE CREATED AUTHOR AUTHOR'S ORGANIZ ATION 10/08/2024 [facility] FOR RECORDS PERTAINING TO PATIENTS WHO ARE [...] BE BASED ON THE PRIMARY CLINICAL RECORDS. [facility]. provides no warranty or guarantee of the accuracy or completeness of information in this document.
--- NOTE | 2024-10-12 14:23 | STRESSREP ---
Stress Test Report Exercise myocardial perfusion stress test. 79-year-old man with a history of coronary artery disease. Stress protocol: Resting EKG demonstrates atrial fibrillation rhythm with a rate of 65 bpm resting blood pressure is 118/76 mmHg. The patient exercised according to the regular Lucas protocol for a total duration of 7 minutes and 14 seconds attaining a maximum heart rate of 136 bpm which was 97% of maximum predicted heart rate; the maximum workload was 10.1 metabolic equivalents. At rest there were no ST or T wave changes noted to suggest ischemia and at peak exercise upsloping ST changes only were noted which did not meet the criteria for ischemia. No clinical angina was noted the test was terminated due to the target heart rate being achieved/fatigue. The peak blood pressure was 172/85 mmHg. Rate-pressure product was 20,800. Occasional ventricular couplet activity present Myocardial perfusion protocol. 11.3 mCi of technetium 99m sestamibi was injected at rest. The patient exercised according to regular Lucas protocol for total duration of 7 minutes and 14 and at peak exercise 34.1 mCi of technetium 99m sestamibi was injected stress images were obtained stress and rest images were reconstructed in comparing the short axis vertical long and horizontal long axis. Gated images were also obtained. Perfusion SPECT analysis: Review of the stress images demonstrate normal uptake of tracer noted in all areas of the myocardium. The resting images similarly demonstrate normal uptake of tracer noted in all areas of the myocardium. No areas of reversibility are noted to suggest ischemia no previous infarct was noted. Gated SPECT analysis: The gated ejection fraction is 66%. Conclusion: Normal exercise myocardial perfusion stress test at a high workload. Atrial fibrillation noted
== END | disposition home or self-care (01) ==
LOC: CVS 06:28
PROVIDERS: PCP Family Medicine; Referring Provider Internal Medicine Cardiovascular Disease; Visit Provider Internal Medicine Cardiovascular Disease
DX: I25.10 Atherosclerotic heart disease of native coronary artery without angina pectoris (principal); Z95.1 Presence of aortocoronary bypass graft
CPT/HCPCS: 78452; 93017; 93306; A9500; A4216